=== PATIENT | female | born 1960 | race Caucasian/White ===

== ENCOUNTER 2020-02-26 17:33 | Outpatient (CLI) | payer OTHER, SELFPAY ==
--- NOTE | ~2020-02-26 | XR_ITS ---
EXAMINATION: XR sacrum coccyx min 2V DATE: 02/26/2020 17:55 INDICATION: Sacrococcygeal pain. TECHNIQUE: 3 views of the sacrum and coccyx were obtained. COMPARISON: None. FINDINGS: Bone alignment is normal. No fracture. There is mild lumbar spondylosis. The sacroiliac alise nts are normal. IMPRESSION: 1. No fracture. Reviewed, dictated and finalized at location A. IMPRESSION: 1. No fracture.
== END 2020-02-26 17:34 | disposition home or self-care (01) ==
PROVIDERS: PCP Family Medicine; Visit Provider Nurse Practitioner
DX: M53.3 Sacrococcygeal disorders, not elsewhere classified (principal)
CPT/HCPCS: 72220

== ENCOUNTER 2020-03-17 09:48 | Outpatient (CLI) | payer OTHER, SELFPAY ==
--- NOTE | ~2020-03-17 | CT_ITS ---
EXAMINATION: CT lung screening DATE: 03/17/2020 10:11 INDICATION: Personal history of tobacco dependence, current smoker with 30 pack year history TECHNIQUE: Computed tomography (CT) of the chest was performed without intravenous contrast. The dose -length product (DLP) was 56.31 mGy-cm. Automated exposure control and iterative reconstruction techn ique were employed. COMPARISON: 03/12/2019 FINDINGS: There is moderate emphysema. There is a new 6 mm nodule of the right lung apex on image 16. A previously described 3 mm nodule of the right upper lobe is no longer present. Calcified pulmonary nodules and calcified right hilar lymph nodes are consistent with old granulomatous disease. No path ologically enlarged thoracic lymph nodes are identified. The heart size is normal. The lungs are free of acute opacities. There is no pleural effusion or pneumothorax. There is mild thoracic spondylosis . IMPRESSION: 1. Lung-RADS category 4A: Findings for which additional diagnostic testing and/or tissue sampling is recommended. Low-dose chest CT in three months is recommended. Reviewed, dictated and finalized at location A. IMPRESSION: 1. Lung-RADS category 4A: Findings for which additional diagnostic testing and/ or tissue sampling is recommended. Low-dose chest CT in three months is recomme nded.
== END 2020-03-17 09:49 | disposition home or self-care (01) ==
LOC: ANHIMG 09:52
PROVIDERS: PCP Family Medicine; Visit Provider Internal Medicine Critical Care Medicine
DX: Z12.2 Encounter for screening for malignant neoplasm of respiratory organs (principal); Z87.891 Personal history of nicotine dependence; R91.8 Other nonspecific abnormal finding of lung field
CPT/HCPCS: G0297

== ENCOUNTER 2020-06-12 11:16 | Outpatient (CLI) | payer OTHER, SELFPAY ==
--- NOTE | ~2020-06-12 | CT_ITS ---
EXAMINATION: CT chest wo con DATE: 06/12/2020 12:05 INDICATION: Follow-up pulmonary nodule TECHNIQUE: Computed tomography (CT) of the chest was performed without intravenous contrast. The dose -length product was 56.73 mGy-cm. Automated exposure control and iterative reconstruction technique w ere employed. COMPARISON: CT dated 03/17/2020 and 03/12/2019 FINDINGS: Stable 6 mm right upper lobe nodule compared with prior examination allowing for difference s of technique. There is moderate emphysema. There are calcified right hilar lymph nodes, consistent with chronic granulomatous disease. There are calcified pulmonary nodules, consistent with chronic gr anulomatous disease. There is right lower lobe atelectasis. There is a 2 mm left upper lobe nodule, u nchanged. No thoracic lymphadenopathy. Heart size normal. No significant pleural or pericardial effus ion. The upper abdomen is unremarkable. IMPRESSION: 1. Stable upper lobe nodules, largest in the right upper lobe measuring 6 mm, image 14. Six-month fol low-up low dose CT chest recommended. Reviewed, dictated and finalized at location A. 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 Stable upper lobe nodules, largest in the right upper lobe measuring 6 mm, i mage 14. Six-month follow-up low dose CT chest recommended.
== END 2020-06-12 11:17 | disposition home or self-care (01) ==
PROVIDERS: PCP Family Medicine; Visit Provider Nurse Practitioner Family
DX: R91.8 Other nonspecific abnormal finding of lung field (principal)
CPT/HCPCS: 71250

== ENCOUNTER 2020-07-19 12:16 | Outpatient (CLI) | payer OTHER, SELFPAY ==
--- NOTE | ~2020-07-19 | XR_ITS ---
XR sacrum coccyx min 2V DATE: 07/19/2020 12:36 INDICATION: Tailbone and sacral pain. No injury. TECHNIQUE: AP, angled AP and lateral views COMPARISON: None FINDINGS: There is mild degenerative disc disease and mild retrolisthesis at L4-5. Diffuse osteopenia. No fracture or bone destruction of the sacrum or coccyx is evident. The sacroiliac joints appear norm al. IMPRESSION: Osteopenia Reviewed, dictated and finalized at location A. RAMMER IMPRESSION: Osteopenia
== END 2020-07-19 12:17 | disposition home or self-care (01) ==
LOC: ANHIMG 12:20
PROVIDERS: PCP Family Medicine; Visit Provider Nurse Practitioner
DX: M43.17 Spondylolisthesis, lumbosacral region (principal); M85.88 Other specified disorders of bone density and structure, other site
CPT/HCPCS: 72220

== ENCOUNTER 2020-07-27 10:58 | Outpatient (NON) | payer OTHER, SELFPAY ==
[2020-07-27 22:32] LABS: SARS-CoV-2 RNA PCR Negative
== END 2020-07-27 10:59 ==
LOC: ANHCOVIDDT 10:59
PROVIDERS: PCP Family Medicine; Visit Provider Family Medicine
DX: R68.89 Other general symptoms and signs (principal); Z20.828 Contact with and (suspected) exposure to other viral communicable diseases
CPT/HCPCS: 87635; C9803; U0003

== ENCOUNTER 2020-08-17 12:50 | Outpatient (NON) | payer OTHER, SELFPAY ==
[2020-08-17 23:32] LABS: SARS-CoV-2 RNA PCR Negative
== END 2020-08-17 12:51 ==
PROVIDERS: PCP Family Medicine; Visit Provider Family Medicine
DX: R68.89 Other general symptoms and signs (principal); Z20.822 Contact with and (suspected) exposure to COVID-19
CPT/HCPCS: C9803; U0003

== ENCOUNTER → 2020-09-23 09:48 | Outpatient (CLI) | payer OTHER, SELFPAY ==
[2020-09-24 19:48] LABS: SARS-CoV-2 RNA PCR Negative
== END ==
PROVIDERS: PCP Family Medicine; Visit Provider Nurse Practitioner Family
DX: Z20.822 Contact with and (suspected) exposure to COVID-19 (principal); R68.89 Other general symptoms and signs
CPT/HCPCS: C9803; U0003; U0005

== ENCOUNTER 2020-09-23 12:01 | Outpatient (CLI) | payer OTHER, SELFPAY ==
[2020-09-23 12:37] LABS: Basophils Percent Auto 0.2 % (0.2-1.2); Eosinophils Absolute Auto 0.1 K/mm3 (0-0.3); Eosinophils Percent Auto 0.4 % (0-4.4); Hematocrit 48.3 % (37.0-47.0); Hemoglobin 16.1 g/dL (12.0-15.0); Immature Granulocyte Absolute 0.08 K/mm3 (0.00-0.031); Immature Granulocyte Percent A 0.6 % (0-0.5); Lymphocytes Absolute Auto 1.98 K/mm3 (0.9-3.2); Lymphocytes Percent Auto 15.3 % (18.3-44.2); Mean Corpuscular HGB Conc 33.3 g/dl (32-36); Mean Corpuscular Hemoglobin 32.9 pg (26-34); Mean Corpuscular Volume 98.8 fl (80-100); Mean Platelet Volume 9.1 fl (7.4-10.4); Monocytes Absolute Auto 0.8 K/mm3 (0.1-0.6); Monocytes Percent Auto 5.9 % (2.6-8.5); Neutrophils Absolute Auto 10.1 K/mm3 (1.3-6.7); Neutrophils Percent Auto 77.6 % (45.5-73.1); Platelet Count Result 196 k/mm3 (150-375); Red Blood Count 4.89 M/mm3 (4.2-5.4); Red Cell Distribution Width 12.8 % (11.5-14.5); White Blood Count 12.9 K/mm3 (4.5-10.0)
[2020-09-23 12:43] LABS: Alanine Aminotransferase 52 U/L (4-35); Albumin Level 4.4 g/dL (3.5-5.1); Alkaline Phosphatase 75 U/L (38-126); Anion Gap 5 mmol/L (8-16); Aspartate Amino Transferase 27 U/L (14-36); Bilirubin,Total 0.4 mg/dL (0.2-1.3); Blood Urea Nitrogen 24 mg/dL (7-17); Calcium 9.7 mg/dL (8.4-10.2); Carbon Dioxide 32 mmol/L (22-30); Chloride 104 mmol/L (98-107); Cholesterol 207 mg/dL (0-200); Estimated Glomerular Filt Rate 50; Glucose 114 mg/dL (65-105); HDL Direct 100 mg/dL; Lactate Dehydrogenase 303 U/L (313-618); Potassium 4.2 mmol/L (3.4-5.0); Sodium 141 mmol/L (137-145); Triglycerides 106 mg/dL (<150)
[2020-09-23 12:54] LABS: LDL Cholesterol Direct 91 mg/dL
[2020-09-23 13:14] LABS: Thyroid Stimulating Hormone 0.213 uIU/mL (0.465-4.680)
[2020-09-23 13:15] LABS: Free T4 Free Thyroxine 1.08 ng/mL (0.78-2.19); Vitamin D 25 Hydroxy 47.5 ng/mL
[2020-09-23 13:49] LABS: Folic Acid 6.4 ng/mL (2.76->20)
[2020-09-26 07:48] LABS: Triiodothyronine T3 Free 2.3 pg/mL (2.3-4.2)
== END 2020-09-23 12:02 | disposition home or self-care (01) ==
LOC: ANHLAB 12:02
PROVIDERS: PCP Family Medicine; Visit Provider Nurse Practitioner
DX: R53.83 Other fatigue (principal); E55.9 Vitamin D deficiency, unspecified; Z13.29 Encounter for screening for other suspected endocrine disorder
CPT/HCPCS: 36415; 80053; 80061; 82306; 82607; 82746; 83615; 84439; 84443; 84481; 85025; C9803; U0003; U0005

== ENCOUNTER 2020-10-06 14:06 | Outpatient (CLI) | payer OTHER, SELFPAY ==
[2020-10-06 14:52] LABS: Basophils Percent Auto 0.3 % (0.2-1.2); Eosinophils Absolute Auto 0.1 K/mm3 (0-0.3); Eosinophils Percent Auto 0.8 % (0-4.4); Hematocrit 45.9 % (37.0-47.0); Hemoglobin 15.3 g/dL (12.0-15.0); Immature Granulocyte Absolute 0.02 K/mm3 (0.00-0.031); Immature Granulocyte Percent A 0.3 % (0-0.5); Lymphocytes Absolute Auto 2.37 K/mm3 (0.9-3.2); Lymphocytes Percent Auto 30.1 % (18.3-44.2); Mean Corpuscular HGB Conc 33.3 g/dl (32-36); Mean Corpuscular Hemoglobin 32.9 pg (26-34); Mean Corpuscular Volume 98.7 fl (80-100); Mean Platelet Volume 9.7 fl (7.4-10.4); Monocytes Absolute Auto 0.6 K/mm3 (0.1-0.6); Monocytes Percent Auto 7.1 % (2.6-8.5); Neutrophils Absolute Auto 4.8 K/mm3 (1.3-6.7); Neutrophils Percent Auto 61.4 % (45.5-73.1); Platelet Count Result 145 k/mm3 (150-375); Red Blood Count 4.65 M/mm3 (4.2-5.4); Red Cell Distribution Width 12.8 % (11.5-14.5); White Blood Count 7.9 K/mm3 (4.5-10.0)
[2020-10-06 15:56] LABS: Hepatitis B Surface Antigen Negative (Negative)
[2020-10-06 16:02] LABS: HAV RESULT Negative (Negative); Hepatitis B Core IgM Result Negative (Negative)
[2020-10-06 16:14] LABS: Hepatitis C Virus Antibody Negative (Negative)
== END 2020-10-06 14:07 | disposition home or self-care (01) ==
PROVIDERS: PCP Family Medicine; Visit Provider Nurse Practitioner
DX: R94.5 Abnormal results of liver function studies (principal); R53.83 Other fatigue; D72.829 Elevated white blood cell count, unspecified
CPT/HCPCS: 36415; 80074; 85025

== ENCOUNTER 2020-12-05 11:21 | Outpatient (CLI) | payer OTHER, SELFPAY ==
[2020-12-05 12:03] LABS: Alanine Aminotransferase 14 U/L (4-35); Albumin Level 4.6 g/dL (3.5-5.1); Alkaline Phosphatase 63 U/L (38-126); Anion Gap 4 mmol/L (8-16); Aspartate Amino Transferase 21 U/L (14-36); Bilirubin,Total 0.5 mg/dL (0.2-1.3); Blood Urea Nitrogen 18 mg/dL (7-17); Calcium 9.4 mg/dL (8.4-10.2); Carbon Dioxide 33 mmol/L (22-30); Chloride 105 mmol/L (98-107); Estimated Glomerular Filt Rate > 60; Glucose 92 mg/dL (65-105); Potassium 4.3 mmol/L (3.4-5.0); Sodium 142 mmol/L (137-145)
== END 2020-12-05 11:22 | disposition home or self-care (01) ==
LOC: ANHLAB 11:22
PROVIDERS: PCP Family Medicine; Visit Provider Nurse Practitioner
DX: R94.5 Abnormal results of liver function studies (principal)
CPT/HCPCS: 36415; 80053

== ENCOUNTER 2020-12-12 08:05 | Outpatient (CLI) | payer OTHER, SELFPAY ==
[2020-12-12 08:30] VITALS: PULSE 65; O2SAT 93
[2020-12-12 08:32] VITALS: PULSE 87; O2SAT 90
[2020-12-12 08:34] VITALS: PULSE 92; O2SAT 89
[2020-12-12 08:35] VITALS: PULSE 97; O2SAT 87
[2020-12-12 08:37] VITALS: PULSE 92; O2SAT 92
[2020-12-12 08:45] VITALS: PULSE 70; O2SAT 92
--- NOTE | 2020-12-12 09:14 | HOMEO2EVAL ---
Evaluation was performed at [facility] Home Oxygen Evaluation RC: Home Oxygen (O2) Evaluation Start: 12/12/20 09:09 Freq: Status: Active Protocol: RPE Activity Type Activity Date Activity User E-Sign Co-Sign Detail Recorded Client Recorded Date Recorded By Document 12/12/20 08:30 DANIEL [email or web address] 12/12/20 09:14 DANIEL Document 12/12/20 08:32 DANILE [email or web address] 12/12/20 09:14 DANIEL Document 12/12/20 08:34 DANIEL [email or web address] 12/12/20 09:14 DANIEL Document 12/12/20 08:35 DANIEL [email or web address] 12/12/20 09:14 DANIEL Document 12/12/20 08:37 DANIEL [email or web address] 12/12/20 09:14 DANIEL Document 12/12/20 08:45 DANIEL [email or web address] 12/12/20 09:14 DANIEL 12/12/20 12/12/20 12/12/20 08:30 08:32 08:34 Home O2 Evaluation Test Phase Resting Exercise Exercise Oxygen Delivery Room Air Room Air Room Air Oxygen Flow Rate (L/min) Pulse Oximetry (90-100 %) 93 90 89 L Pulse Rate (60-100 beats/min) 65 87 92 Ambulation Distance (feet) Home Oxygen Evaluation Comments Treatment Charges O2 Evaluation - Outpatient 12/12/20 12/12/20 12/12/20 08:35 08:37 08:45 Home O2 Evaluation Test Phase Exercise Exercise Resting Oxygen Delivery Room Air Nasal Cannula Room Air Oxygen Flow Rate (L/min) 1 Pulse Oximetry (90-100 %) 87 L 92 92 Pulse Rate (60-100 beats/min) 97 92 70 Ambulation Distance (feet) 650 Home Oxygen Evaluation Comments Pt requires 1 liter with exertion/ activity Treatment Charges
--- NOTE | 2020-12-12 09:15 | PCRCNOTE ---
Mita faxed to office, pt has O2 at home, but only for night. Will need portable O2 supplies.
== END 2020-12-12 08:06 | disposition home or self-care (01) ==
PROVIDERS: PCP Family Medicine; Visit Provider Nurse Practitioner Family
DX: R06.02 Shortness of breath (principal)
CPT/HCPCS: 94618

== ENCOUNTER 2020-12-20 08:06 | Outpatient (CLI) | payer OTHER, SELFPAY ==
--- NOTE | ~2020-12-20 | CT_ITS ---
EXAMINATION:CT diagnostic chest wo con DATE: 12/20/2020 08:24 INDICATION: Solitary pulmonary nodule. TECHNIQUE: Computed tomography (CT) of the chest was performed without intravenous contrast. Automate d exposure control and iterative reconstruction technique were employed. The dose-length product (DLP ) was 57.59 mGy-cm. COMPARISON: Chest CT 06/12/2020, 03/17/2020, 03/12/2019 FINDINGS: There is moderate emphysema. A calcified right lung nodule and calcified right hilar lymph nodes are consistent with old granulomatous disease. There is mild atelectasis in right lower lobe. T here is a 5 mm nodule in right upper lobe, stable from 03/17/2020. There is a 2 mm nodule in left upper lobe. No pleural effusion. The heart size is normal. No pericardial effusion. There is mild thoracic spondylosis. IMPRESSION: 1. Lung-RADS category 2: Benign appearance or behavior. Continue annual screening with noncontrast lo w-dose chest CT in 12 months. Reviewed, dictated and finalized at location B. IMPRESSION: 1. Lung-RADS category 2: Benign appearance or behavior. Continue annual screeni ng with noncontrast low-dose chest CT in 12 months.
== END 2020-12-20 08:07 | disposition home or self-care (01) ==
PROVIDERS: PCP Family Medicine; Visit Provider Nurse Practitioner Family
DX: R91.1 Solitary pulmonary nodule (principal)
CPT/HCPCS: 71250

== ENCOUNTER 2021-01-23 15:45 | Outpatient (CLI) | payer OTHER, SELFPAY ==
[2021-01-23 16:12] LABS: Uric Acid 4.2 mg/dL (2.5-7.5)
== END 2021-01-23 15:46 | disposition home or self-care (01) ==
PROVIDERS: PCP Family Medicine; Visit Provider Nurse Practitioner Family
DX: M10.9 Gout, unspecified (principal)
CPT/HCPCS: 36415; 84550

== ENCOUNTER 2021-01-25 15:47 | Outpatient (CLI) | payer OTHER, SELFPAY ==
--- NOTE | ~2021-01-25 | XR_ITS ---
XR foot RT min 3V DATE: 01/25/2021 16:16 INDICATION: Growth on first digit medially and anteriorly at first metatarsophalangeal joint TECHNIQUE: 4 views of right foot COMPARISON: None FINDINGS: There is severe hypertrophic osteoarthritic change at the first metatarsophalangeal joint, including severe joint space narrowing and very prominent spurring.. Prominent spurring accounts for posterior projections at the first metatarsophalangeal area. No fracture, dislocation, periosteal reaction or bone destruction. IMPRESSION: Severe hypertrophic osteoarthritic change at the first metatarsophalangeal joint with stephanie y prominent dorsally projecting spurring accounting for the clinical complaint Reviewed, dictated and finalized at location A. IMPRESSION: Severe hypertrophic osteoarthritic change at the first metatarsopha langeal joint with very prominent dorsally projecting spurring accounting for t he clinical complaint
== END 2021-01-25 15:48 | disposition home or self-care (01) ==
PROVIDERS: PCP Family Medicine; Visit Provider Family Medicine
DX: M19.071 Primary osteoarthritis, right ankle and foot (principal)
CPT/HCPCS: 73630

== ENCOUNTER 2021-02-08 10:10 | Outpatient (CLI) | payer OTHER, SELFPAY ==
--- NOTE | ~2021-02-08 | XR_ITS ---
EXAMINATION: XR chest 2V EXAM DATE: 02/08/2021 10:32 INDICATION: Shortness of breath. Preoperative testing. TECHNIQUE: Frontal and lateral projections of the chest obtained and reviewed. Comparison is made to prior examination from 01/10/2018. FINDINGS: Mild hyperinflation. Right midlung zone granuloma. The lungs are otherwise clear. No pneum othorax or pleural effusion. Cardiomediastinal silhouette is normal. There are mild bony degenerative changes. IMPRESSION: Mild hyperinflation. Reviewed, dictated and finalized at location A. IMPRESSION: Mild hyperinflation.
--- NOTE | 2021-02-08 10:49 | ECG_ITS ---
Measurements Intervals [place] Rate: 53 P: RI: 0 QRS: 82 QRSD: 129 T: 63 QT: 466 QTc: 440 Interpretive Statements ECTOPIC ATRIAL BRADYCARDIA RIGHT BUNDLE BRANCH BLOCK ABNORMAL ECG Electronically Signed On 02-08-2021 11:02:07 CDT by Alfie Jimenez D.O.
[2021-02-08 11:00] LABS: Hematocrit 48.5 % (37.0-47.0); Mean Corpuscular Hemoglobin 32.8 pg (26-34); Mean Corpuscular Volume 99.4 fl (80-100); Mean Platelet Volume 9.3 fl (7.4-10.4); Platelet Count Result 171 k/mm3 (150-375); Red Blood Count 4.88 M/mm3 (4.2-5.4); Red Cell Distribution Width 12.4 % (11.5-14.5); White Blood Count 6.9 K/mm3 (4.5-10.0)
[2021-02-08 11:10] LABS: INR 0.9; Prothrombin Time 12.4 Seconds (11.1-14.7)
[2021-02-08 11:11] LABS: Partial Thromboplastin Time 31.1 SECONDS (22.3-36.8)
[2021-02-08 11:14] LABS: Alanine Aminotransferase 14 U/L (4-35); Albumin Level 4.8 g/dL (3.5-5.1); Alkaline Phosphatase 64 U/L (38-126); Anion Gap 9 mmol/L (8-16); Aspartate Amino Transferase 23 U/L (14-36); Bilirubin,Total 0.3 mg/dL (0.2-1.3); Blood Urea Nitrogen 14 mg/dL (7-17); Calcium 9.6 mg/dL (8.4-10.2); Carbon Dioxide 28 mmol/L (22-30); Chloride 106 mmol/L (98-107); Estimated Glomerular Filt Rate > 60; Glucose 90 mg/dL (65-105); Potassium 3.8 mmol/L (3.4-5.0); Sodium 143 mmol/L (137-145)
== END 2021-02-08 10:11 | disposition home or self-care (01) ==
LOC: ANHIMG 10:15
PROVIDERS: PCP Family Medicine; Visit Provider Nurse Practitioner
DX: Z01.818 Encounter for other preprocedural examination (principal); M21.611 Bunion of right foot; R00.1 Bradycardia, unspecified; I45.10 Unspecified right bundle-branch block
CPT/HCPCS: 36415; 71046; 80053; 85027; 85610; 85730; 93005

== ENCOUNTER 2021-07-20 14:48 | Outpatient (CLI) | payer OTHER, SELFPAY ==
--- NOTE | ~2021-07-20 | XR_ITS ---
EXAMINATION: XR chest 2V DATE: 07/20/2021 15:11 INDICATION: Shortness of breath, cough TECHNIQUE: PA and lateral views of the chest are obtained. COMPARISON: 02/08/2021 FINDINGS: The lungs are free of acute opacities. Calcified pulmonary nodules are consistent with old granulomatous disease. There is no pleural effusion or pneumothorax. The cardiomediastinal silhouette is normal. There is moderate thoracic spondylosis. IMPRESSION: 1. No acute cardiopulmonary abnormality. Reviewed, dictated and finalized at location A. 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
== END 2021-07-20 14:49 | disposition home or self-care (01) ==
LOC: ANHIMG 14:51
PROVIDERS: PCP Family Medicine; Visit Provider Nurse Practitioner Family
DX: R05.9 Cough, unspecified (principal); M47.814 Spondylosis without myelopathy or radiculopathy, thoracic region; R06.02 Shortness of breath; R07.81 Pleurodynia
CPT/HCPCS: 71046

== ENCOUNTER 2021-10-10 12:21 | Outpatient (CLI) | payer OTHER, SELFPAY ==
[2021-10-10 13:05] LABS: Alanine Aminotransferase 15 U/L (4-35); Albumin Level 4.3 g/dL (3.5-5.1); Alkaline Phosphatase 60 U/L (38-126); Anion Gap 4 mmol/L (8-16); Aspartate Amino Transferase 23 U/L (14-36); Bilirubin,Total 0.6 mg/dL (0.2-1.3); Blood Urea Nitrogen 17 mg/dL (7-17); Carbon Dioxide 29 mmol/L (22-30); Chloride 106 mmol/L (98-107); Cholesterol 210 mg/dL (0-200); Creatine Kinase 60 U/L (30-135); Estimated Glomerular Filt Rate > 60; Glucose 90 mg/dL (65-110); HDL Direct 72 mg/dL; Potassium 4.3 mmol/L (3.4-5.0); Sodium 139 mmol/L (137-145); Triglycerides 75 mg/dL (<150)
[2021-10-10 13:17] LABS: LDL Cholesterol Direct 101 mg/dL
[2021-10-10 13:36] LABS: Thyroid Stimulating Hormone 0.697 uIU/mL (0.465-4.680)
[2021-10-10 13:47] LABS: Free T4 Free Thyroxine 1.12 ng/mL (0.78-2.19); Vitamin D 25 Hydroxy 33.7 ng/mL
[2021-10-10 14:13] LABS: Folic Acid 6.6 ng/mL (2.76->20)
[2021-10-13 05:05] LABS: Thyroid Peroxidase Antibodies 20 IU/mL (<9)
== END 2021-10-10 12:22 | disposition home or self-care (01) ==
PROVIDERS: PCP Family Medicine; Referring Provider Specialist; Visit Provider Internal Medicine Endocrinology, Diabetes & Metabolism
DX: E78.2 Mixed hyperlipidemia (principal); E06.3 Autoimmune thyroiditis
CPT/HCPCS: 36415; 80053; 80061; 82306; 82550; 82607; 82746; 84439; 84443; 84481; 86376

== ENCOUNTER 2021-11-07 15:54 | Outpatient (CLI) | payer OTHER, SELFPAY ==
--- NOTE | ~2021-11-07 | MM_ITS ---
EXAMINATION: MM screening [facility] BI w samantha HISTORY: Screening mammogram TECHNIQUE: Craniocaudal and mediolateral oblique 3-D tomosynthesis images were obtained and synthetic 2-D images were generated. CAD analysis was submitted and interpreted. COMPARISON: 08/17/2019, 01/13/2018, 10/11/2016 BREAST PARENCHYMAL COMPOSITION: There are scattered areas of fibroglandular density. FINDINGS: There is no suspicious mass, calcification, or architectural distortion to suggest malignan cy in either breast. There has been no suspicious interval change. IMPRESSION: 1. No mammographic evidence of malignancy. 2. Recommend routine screening mammography in one year. BI-RADS Category 1: Negative Reviewed, dictated and finalized at location A.
== END 2021-11-07 15:55 | disposition home or self-care (01) ==
LOC: ANHIMG 16:00
PROVIDERS: PCP Family Medicine; Visit Provider Family Medicine
DX: Z12.31 Encounter for screening mammogram for malignant neoplasm of breast (principal)
CPT/HCPCS: 77063; 77067

== ENCOUNTER 2022-01-06 10:10 | Outpatient (CLI) | payer OTHER, SELFPAY ==
--- NOTE | ~2022-01-06 | CT_ITS ---
EXAMINATION: CT lung screening DATE: 01/06/2022 10:43 INDICATION: Smoker. COPD. Emphysema. TECHNIQUE: Computed tomography (CT) of the chest was performed without intravenous contrast. The dose -length product was 55.03 mGy-cm. Automated exposure control and iterative reconstruction technique w ere employed. COMPARISON: CT dated 12/20/2020 FINDINGS: Heart size normal. No significant pleural or pericardial effusion. No thoracic lymphadenopa thy. Upper abdomen is unremarkable. There is atherosclerosis of the aorta and coronary arteries. Ther e are scattered calcified granulomas. Stable 4 mm right upper lobe nodule. There is a new 4 mm left u pper lobe nodule, image 16. There is emphysema. There is a new 5 mm left upper lobe nodule, image 26. There is stable right lower lobe atelectasis/scarring. No pneumothorax. No endobronchial lesions. IMPRESSION: 1. Lung-RADS category 3: Probably benign. Further evaluation is recommended with noncontrast low-dose chest CT in 6 months. Reviewed, dictated and finalized at location A. IMPRESSION: 1. Lung-RADS category 3: Probably benign. Further evaluation is recommended wit h noncontrast low-dose chest CT in 6 months.
== END 2022-01-06 10:11 | disposition home or self-care (01) ==
PROVIDERS: PCP Family Medicine; Visit Provider Nurse Practitioner Family
DX: Z12.2 Encounter for screening for malignant neoplasm of respiratory organs (principal); Z87.891 Personal history of nicotine dependence
CPT/HCPCS: 71271

== ENCOUNTER 2022-04-20 12:41 | Outpatient (CLI) | payer OTHER, SELFPAY ==
--- NOTE | ~2022-04-20 | XR_ITS ---
EXAMINATION: XR hip RT min 2V DATE: 04/20/2022 13:06 INDICATION: Right hip pain TECHNIQUE: Two views of right hip were obtained. COMPARISON: None. FINDINGS: Bone alignment is normal. There is no fracture. There is mild osteoarthritis of the right h ip. The soft tissues are unremarkable. IMPRESSION: 1. Mild osteoarthritis of the hip. Reviewed, dictated and finalized at location B.
--- NOTE | ~2022-04-20 | XR_ITS ---
EXAMINATION: XR shoulder RT min 2V INDICATION: Right shoulder pain TECHNIQUE: Four views of the right shoulder are submitted. COMPARISON: None FINDINGS: Normal alignment. No fracture. There is mild osteoarthritis of the glenohumeral joint and m oderate osteoarthritis of the acromioclavicular joint. Soft tissues are unremarkable. IMPRESSION: 1. No acute osseous abnormality. Reviewed, dictated and finalized at location B.
== END 2022-04-20 12:42 | disposition home or self-care (01) ==
PROVIDERS: PCP Family Medicine; Visit Provider Nurse Practitioner Adult Health
DX: M16.11 Unilateral primary osteoarthritis, right hip (principal); M25.511 Pain in right shoulder
CPT/HCPCS: 73030; 73502

== ENCOUNTER 2022-05-27 15:17 | Inpatient (IN) | payer OTHER, SELFPAY ==
[2022-05-27] VITALS (33 sets, daily range): BP systolic 106–140; BP diastolic 64–89; PULSE 86–114; RESP 16–25; TEMP 36.7–37.2; O2SAT 92–99; BMI 20.4
--- NOTE | ~2022-05-27 | XR_ITS ---
EXAMINATION: XR chest 1V portable DATE: 05/31/2022 15:33 INDICATION: Chest pain. Shortness of breath. TECHNIQUE: A single frontal view of the chest was obtained. COMPARISON: Chest single view 05/27/2022, chest CT 01/06/2022 FINDINGS: A calcified right lung nodule and calcified right hilar lymph nodes are consistent with old granulomatous disease. There are mild airspace opacities in right lower lung zone. No pleural effusi on or pneumothorax. The heart size is normal. IMPRESSION: 1. Stable mild airspace opacities in right lower lung zone, consistent with atelectasis/scarring vers us pneumonia. Reviewed, dictated and finalized at location A. IMPRESSION: 1. Stable mild airspace opacities in right lower lung zone, consistent with ate lectasis/scarring versus pneumonia.
--- NOTE | ~2022-05-27 | XR_ITS ---
EXAMINATION: XR chest 1V portable Exam Date/Time: 05/27/2022 15:46 CDT HISTORY: dyspnea. congestion the last 2 days. hx COPD Comparison: None available. RESULT: Lines, tubes, and devices: None. Lungs and pleura: Ill-defined patchy opacities in the right upper and right lower lung. Hyperinflati on. Cardiomediastinal silhouette: Stable. Other: No acute osseous or upper abdominal finding. IMPRESSION: Right lung opacities may reflect edema or infection, overlying chronic emphysematous change. Reviewed, dictated and finalized at location K. IMPRESSION: Right lung opacities may reflect edema or infection, overlying chronic emphysem atous change.
--- NOTE | 2022-05-27 15:24 | ECG_ITS ---
Measurements Intervals [place] Rate: 87 P: 8 MA: 150 QRS: 87 QRSD: 120 T: 69 QT: 361 QTc: 437 Interpretive Statements SINUS RHYTHM BASELINE ARTIFACT RIGHT BUNDLE BRANCH BLOCK ABNORMAL ECG COMPARED TO ECG 02/08/2021 10:58:31 HEART RATE HAS INCREASED AND ECTOPIC ATRIAL RHYTHM NO LONGER APPRECIATED Electronically Signed On 05-27-2022 16:05:10 CDT by William Andino M.D.
[2022-05-27 15:37] LABS: Alveolar/Arterial O2 Gradient 80.7 mmHg; Base Excess ABG -2.1 mEq/l (+/-2.0); Carboxyhemoglobin 1.5 % THb (0-2.0); Fractional Inspired Oxygen 28 %; HCO3 ABG 21.9 mEq/l (22.0-26.0); Methemoglobin ABG 0.2 %THb (0-1.5); Oxygen Saturation ABG 95.6 % (95.0-100.0); Oxyhemoglobin 93.4 % THb (90.0-100.0); PCO2 ABG 35.3 mmHg (35.0-45.0); PO2 ABG 77.3 mmHg (80.0-100.0); PO2 FiO2 Ratio Arterial Blood 2.76 %; Reduced Hemoglobin 4.9 %THb (0-5.0); Total Hemoglobin 13.7 g/dL (12.0-18.0)
[2022-05-27 15:38] LABS: Device NASAL CANNULA; Modified Allen's Test Pass; Site Drawn LEFT RADIAL
[2022-05-27 15:50] LABS: Basophils Percent Auto 0.3 % (0.2-1.2); Eosinophils Percent Auto 0.1 % (0-4.4); Hematocrit 42.3 % (37.0-47.0); Hemoglobin 13.5 g/dL (12.0-15.0); Immature Granulocyte Absolute 0.02 K/mm3 (0.00-0.031); Immature Granulocyte Percent A 0.2 % (0-0.5); Immature Platelet Fraction Pct 2.8 % (0.9-11.2); Lymphocytes Absolute Auto 1.41 K/mm3 (0.9-3.2); Lymphocytes Percent Auto 15.6 % (18.3-44.2); Mean Corpuscular HGB Conc 31.9 g/dl (32-36); Mean Corpuscular Hemoglobin 32.2 pg (26-34); Mean Platelet Volume 9.5 fl (7.4-10.4); Monocytes Absolute Auto 0.8 K/mm3 (0.1-0.6); Monocytes Percent Auto 8.7 % (2.6-8.5); Neutrophils Absolute Auto 6.8 K/mm3 (1.3-6.7); Neutrophils Percent Auto 75.1 % (45.5-73.1); Platelet Count Result 129 k/mm3 (150-375); Red Blood Count 4.19 M/mm3 (4.2-5.4); Red Cell Distribution Width 13.6 % (11.5-14.5)
[2022-05-27 15:59] LABS: Alanine Aminotransferase 23 U/L (6-35); Albumin Level 4.7 g/dL (3.5-5.1); Alkaline Phosphatase 67 U/L (38-126); Anion Gap 11 mmol/L (8-16); Aspartate Amino Transferase 29 U/L (14-36); Bilirubin,Total 1.3 mg/dL (0.2-1.3); Blood Urea Nitrogen 13 mg/dL (7-17); Carbon Dioxide 25 mmol/L (22-30); Chloride 100 mmol/L (98-107); Estimated CRCL calculation 72 ml/min; Estimated Glomerular Filt Rate > 60; Glucose 108 mg/dL (65-110); Potassium 3.9 mmol/L (3.4-5.0); Sodium 136 mmol/L (137-145)
[2022-05-27] MEDS: ALBUTEROL SULFATE NEB 2.5 MG/3 ML INH 5 MG INHALATION ×2 (16:07→21:00)
[2022-05-27] MEDS: methylPREDNISolone SOD SUCC 125 MG VIAL IV PUSH (16:11)
[2022-05-27] MEDS: MORPHINE SULFATE (*CRX) 4 MG/ML INJ IV PUSH (16:11)
--- NOTE | 2022-05-27 16:22 | ED.SOB ---
HPI - SOB/Dyspnea General Chief Complaint: Shortness of Breath/Dyspnea Stated Complaint: copd, sob Time Seen by Provider: 05/27/22 15:37 History of Present Illness HPI Narrative: 61-year-old female with history of COPD on 2 L of oxygen by nasal cannula presenting the emergency department for evaluation of worsening shortness of breath. Patient states that over the last few weeks she has had worsening shortness of breath but particular the last 2 days. Patient does report associated chest pain with this. Patient states the chest pain is from her chest and into her back and is with exertion. Patient does report she has also been having increased phlegm production. Patient reports he has had multiple stress test and Angiocath since 2008. Patient denies any prior history of [place] and has no cardiac stents. Related Data Home Medications Medication Instructions Recorded Confirmed albuterol sulfate 90 mcg/actuation 2 puff inhalation Q4-6H PRN 05/27/22 05/27/22 aerosol inhaler Shortness Of Breath cyanocobalamin (vitamin B-12) See Rx Instructions .Route .COMPLEX 05/27/22 05/27/22 1,000 mcg/mL injection solution (Dodex) ergocalciferol (vitamin D2) 1,250 See Rx Instructions .Route .COMPLEX 05/27/22 05/27/22 mcg (50,000 unit) capsule tiotropium bromide 18 mcg capsule 1 cap inhalation DAILY 05/27/22 05/27/22 with inhalation device (Spiriva with HandiHaler) Allergies Allergy/AdvReac Type Severity Reaction Status Date / Time No Known Allergies Allergy Verified 05/27/22 22:16 Review of Systems Review of Systems: CONSTITUTIONAL: Denies fever, chills, or sweats. EYES: Denies visual changes, redness, or discharge. ENT: Denies rhinorrhea, congestion, sore throat, or otalgia. CARDIOVASCULAR: See HPI RESPIRATORY: See HPI GASTROINTESTINAL: Denies abdominal pain, nausea, vomiting, or diarrhea. GENITOURINARY: Denies dysuria or hematuria. SKIN: Denies rash or itching. MUSCULOSKELETAL: Denies back pain, joint pain, or myalgia. NEUROLOGIC: Denies headache, numbness, or weakness. [facility] Past Medical History Medical History (Updated 05/28/22 @ 20:23 by Kevin Nieves MD) Acid reflux Anxiety Chronic obstructive pulmonary disease Chronic respiratory failure with hypoxia, on home oxygen therapy Depression Surgical History Surgical History (Updated 05/27/22 @ 22:02 by Rupali Longoria PA-C) History of bilateral cataract extraction History of bunionectomy History of cardiac catheterization History of section History of colonoscopy with polypectomy History of esophageal dilatation Family History Family History Mother Family history of chronic obstructive pulmonary disease Sibling Family history of lung cancer Family history of cardiovascular disease, Onset Age: 58 Family history of chronic obstructive pulmonary disease Father Family history of lung cancer Other Asthma Diabetes mellitus Family history of coronary artery disease Family history of elevated blood lipids Hypertension Social History Social History (Updated 05/27/22 @ 22:08 by Rupali Longoria PA-C) Social History: Smoked 2 packs a day for 38 years, now 0.5 packs a day. No alcohol abuse. Uses marijuana gummies at night for sleep. Surrogate medical decision maker: Jonathan Peña, significant other. Code status: Full code. Spiritual care concerns: No Exam Narrative: APPEARANCE: Well appearing, no pain, no distress, well-nourished. HEAD: normocephalic, atraumatic. EYES: PERRLA/EOMI, conjunctivae clear. NOSE: Normal no drainage THROAT: Pharynx clear, no exudate. NECK: Supple. No adenopathy, no masses. RESPIRATORY: Airway patent, respirations nonlabored. Increased work of breathing. CARDIOVASCULAR: Regular rate and rhythm without murmurs rubs or gallops. ABDOMINAL: Soft, nontender, nondistended, normal bowel sounds MUSCULOSKELETAL: Moves all extremities. St
[2022-05-27 16:25] LABS: Troponin I < 0.012 ng/mL (0.000-0.034)
[2022-05-27 16:30] LABS: SARS-CoV-2 RNA PCR Negative
--- NOTE | 2022-05-27 18:00 | PM.IMHP ---
H&P: HPI History of Present Illness Date/Time: 05/27/22 18:00 Chief Complaint: Shortness of breath. Narrative: This is a pleasant 61-year-old female smoker with with oxygen dependant COPD who presented to the ED for evaluation of shortness of breath. She has chronic dyspnea on exertion but is typically able to do all activities of daily living without significant issue. The last week or so she has had increasing dyspnea on lesser and lesser exertion though it has gotten much worse over the past 2 days. She also reports a cough productive of oliva/green phlegm, chills, sweats, and chest tightness due to feeling so she cannot fully taken in a deep breath. She has been using her inhalers though they have not provided her with any longstanding relief. She has been afebrile since arrival today and vital signs are stable. Labs were essentially unremarkable. Chest x-ray showed right lung opacities which likely indicate infection and she is being admitted in this setting for treatment of pneumonia and COPD exacerbation. She has not had a documented fever and denies headache, sinus congestion, sore throat, lightheadedness, dizziness, and diarrhea. She and her significant other were in [place] this weekend returned home over the weekend though she does not think she had any exposure to sick contacts. Review of Systems Review of Systems: Twelve systems were reviewed. No syncope or presyncope. No headache, sinus congestion, or sore throat. She has had some mild pleuritic pain in the right mid to lower back where she was found to have pneumonia on x-ray. Appetite has been okay. No nausea or vomiting. She has been constipated the last several days. Except as documented, all other systems were reviewed and are negative. [facility] Past Medical History Medical History (Updated 05/27/22 @ 22:06 by Rupali Longoria PA-C) Acid reflux Anxiety Chronic obstructive pulmonary disease Chronic respiratory failure with hypoxia, on home oxygen therapy Depression Surgical History Surgical History (Updated 05/27/22 @ 22:02 by Rupali Longoria PA-C) History of bilateral cataract extraction History of bunionectomy History of cardiac catheterization History of section History of colonoscopy with polypectomy History of esophageal dilatation Family History Family History Mother Family history of chronic obstructive pulmonary disease Sibling Family history of lung cancer Family history of cardiovascular disease, Onset Age: 58 Family history of chronic obstructive pulmonary disease Father Family history of lung cancer Other Asthma Diabetes mellitus Family history of coronary artery disease Family history of elevated blood lipids Hypertension Social History Social History (Updated 05/27/22 @ 22:08 by Rupali Longoria PA-C) Social History: Smoked 2 packs a day for 38 years, now 0.5 packs a day. No alcohol abuse. Uses marijuana gummies at night for sleep. Surrogate medical decision maker: Jonathan Peña, significant other. Code status: Full code. Spiritual care concerns: No Meds Home Medications and Allergies Home Medications Medication Instructions Recorded Confirmed Type mometasone-formoterol HFA 100 2 puff inhalation Q12H #13 grams 12/07/21 05/27/22 Rx mcg-5 mcg/actuation aerosol inhaler (Dulera) albuterol sulfate 90 mcg/actuation 2 puff inhalation Q4-6H PRN 05/27/22 05/27/22 History aerosol inhaler Shortness Of Breath cyanocobalamin (vitamin B-12) See Rx Instructions .Route .COMPLEX 05/27/22 05/27/22 History 1,000 mcg/mL injection solution (Dodex) ergocalciferol (vitamin D2) 1,250 See Rx Instructions .Route .COMPLEX 05/27/22 05/27/22 History mcg (50,000 unit) capsule tiotropium bromide 18 mcg capsule 1 cap inhalation DAILY 05/27/22 05/27/22 History with inhalation device (Spiriva with HandiHaler) Allergies Allergy/A
--- NOTE | 2022-05-27 18:44 | PC.NURSE ---
Report received by VICKEY Schafer with the ED at 1843.
--- NOTE | 2022-05-27 19:10 | ADMGEN ---
This patient, Liset Kunz, was admitted to IMU Room 214-01 at 1859. Patient/family oriented to hospital policies and general routines including ID bracelet, bed and alarms, visiting hours, pain management, procedures, bathroom and other care routines, personal items, smoking policy, room service/diet, and visiting hours. Information on how to activate the Rapid Response Team has been discussed. Patient/Family are encouraged to report perceived risks to care and to ask questions if they do not understand what they are told or what they should do.
[2022-05-27 20:43] LABS: Troponin I < 0.012 ng/mL (0.000-0.034)
[2022-05-27] MEDS: IPRATROPIUM BR 0.02% INH SOLN 0.5 MG/2.5 ML VIAL INHALATION (21:00)
[2022-05-27] MEDS: methylPREDNISolone SOD SUCC 40 MG VIAL IV PUSH (22:28)
[2022-05-27] MEDS: ACETAMINOPHEN 325 MG TABLET 650 MG PO (22:28)
[2022-05-27] MEDS: diazePAM (*CRX) 2.5 MG TABLET PO (22:36)
[2022-05-28] VITALS (15 sets, daily range): BP systolic 105–111; BP diastolic 56–66; PULSE 73–108; RESP 15–22; TEMP 36.5–36.7; O2SAT 94–99; BMI 20.4
[2022-05-28] MEDS: guaiFENesin/DEXTROMETHORPHAN 10 ML UDC 5 ML PO ×2 (00:14→10:11)
[2022-05-28] MEDS: IPRATROPIUM BR 0.02% INH SOLN 0.5 MG/2.5 ML VIAL INHALATION ×2 (02:25→08:53)
[2022-05-28] MEDS: methylPREDNISolone SOD SUCC 40 MG VIAL IV PUSH (04:49)
[2022-05-28 06:04] LABS: Influenza A QL RT-PCR Negative (Negative); Influenza B QL RT-PCR Negative (Negative)
--- NOTE | 2022-05-28 07:44 | PM.IMPN ---
Progress Note: A&P Assessment and Plan (1) COPD exacerbation: Code(s): J44.1 - Chronic obstructive pulmonary disease with (acute) exacerbation Status: Acute Assessment and Plan: Will start Trelegy, discontinue steroids and nebulizers per patient request, monitor off these, will consult pulmonology (2) Chronic respiratory failure with hypoxia, on home oxygen therapy: Code(s): J96.11 - Chronic respiratory failure with hypoxia; Z99.81 - Dependence on supplemental oxygen Status: Acute Assessment and Plan: Stable on 2 L which is her home dose (3) Pneumonia: Code(s): J18.9 - Pneumonia, unspecified organism Status: Acute Assessment and Plan: Day 2 of azithromycin and ceftriaxone, started May 27, 2022 (4) Anxiety: Code(s): F41.9 - Anxiety disorder, unspecified Status: Acute Assessment and Plan: Valium 2.5 mg orally twice daily as needed Patient uses a THC/CBD gummy several times throughout the day for anxiety at home (5) Tobacco abuse: Code(s): Z72.0 - Tobacco use Status: Acute Assessment and Plan: Will start low-dose nicotine patch Plan DVT prophylaxis with Lovenox GI prophylaxis not indicated Code status full code Subjective Date/time seen: 05/28/22 07:44 Interval history: No overnight events noted. No chest pain or shortness of breath. No nausea, vomiting or diarrhea. No fevers or chills. Patient states she feels little anxious and irritable and really does not like getting the steroids and nebulizer treatments. She thinks they do not even help. She is requesting Valium, [place] and a pain patch. Review of Systems Review of Systems: 12 point review of systems was assessed and was negative except as noted in the HPI Exam Narrative: General: No acute distress, alert and oriented per baseline, on 2 L nasal cannula HEENT: Atraumatic, normocephalic, mucous membranes moist CV: Regular rate and rhythm, S1, S2 Lungs: Extremely diminished throughout, a few end expiratory wheezes noted, no crackles or rhonchi Abdomen: Soft, nontender, nondistended Extremities: Normal to inspection Skin: No rashes noted, no lesions or wounds seen Psych: Euthymic, normal affect Objective Data Vital Signs Vital Signs: Vital Signs - 24 hr 05/27/22 15:25 05/27/22 16:05 05/27/22 15:31 Temperature 98.2 F Pulse Rate 98 102 H 102 H Respiratory Rate 22 H 20 22 H Blood Pressure 140/89 Pulse Oximetry 94 92 Oxygen Delivery Nasal Cannula Oxygen Flow Rate 2 05/27/22 15:32 05/27/22 15:45 05/27/22 15:46 Temperature Pulse Rate 101 H 101 H 98 Respiratory Rate 25 H 22 H 17 Blood Pressure 140/89 136/84 Pulse Oximetry 95 95 95 Oxygen Delivery Oxygen Flow Rate 05/27/22 16:01 05/27/22 16:02 05/27/22 16:15 Temperature Pulse Rate 95 91 105 H Respiratory Rate 22 H 17 20 Blood Pressure 137/81 Pulse Oximetry 95 95 99 Oxygen Delivery Oxygen Flow Rate 05/27/22 16:16 05/27/22 16:30 05/27/22 16:31 Temperature Pulse Rate 111 H 114 H 114 H Respiratory Rate 24 H 19 19 Blood Pressure 132/78 131/70 Pulse Oximetry 99 95 95 Oxygen Delivery Oxygen Flow Rate 05/27/22 17:13 05/27/22 16:32 05/27/22 19:12 Temperature 98.9 F Pulse Rate 110 H 101 H Respiratory Rate 21 H 24 H Blood Pressure 132/77 122/75 Pulse Oximetry 93 96 97 Oxygen Delivery Nasal Cannula Oxygen Flow Rate 2 05/27/22 17:32 05/27/22 17:45 05/27/22 17:46 Temperature Pulse Rate 110 H 111 H 113 H Respiratory Rate 21 H 18 23 H Blood Pressure 114/69 Pulse Oximetry 93 95 94 Oxygen Delivery Oxygen Flow Rate 05/27/22 18:00 05/27/22 18:01 05/27/22 18:15 Temperature Pulse Rate 109 H 108 H 104 H Respiratory Rate 21 H 22 H 22 H Blood Pressure 113/64 Pulse Oximetry 93 94 95 Oxygen Delivery Oxygen Flow Rate 05/27/22 18:16 05/27/22 18:30 05/27/22 18:31 Temperature Pulse Rate 1
[2022-05-28] MEDS: FLUTICASONE/SALMETEROL 115-21 MCG INHALER 1 PUFF 2 PUFF INHALATION ×2 (08:54→20:43)
[2022-05-28] MEDS: ENOXAPARIN 40 MG/0.4 ML SYRINGE SUB-Q (10:04)
[2022-05-28] MEDS: ACETAMINOPHEN 325 MG TABLET 650 MG PO (10:12)
--- NOTE | 2022-05-28 14:42 | PCNSR ---
On 05/28/22, the student, Finn Barrios, provided care and completed [employer] documentation on this patient. I have reviewed the student's documentation and agree with the findings.
[2022-05-28] MEDS: guaiFENesin 600 MG/DEXTROMETHORPHAN 30 MG SR TAB 12 HR 1 TAB PO ×2 (15:20→20:28)
[2022-05-28] MEDS: NICOTINE (*PBKC) 7 MG PATCH 1 PATCH TRANSDERM (15:20)
[2022-05-28] MEDS: diazePAM (*CRX) 2.5 MG TABLET PO (20:28)
[2022-05-29 08:00] VITALS: BP 102/55; PULSE 106; RESP 16; TEMP 36.6; O2SAT 92; O2SAT 96
[2022-05-29 08:04] LABS: Basophils Percent Auto 0.3 % (0.2-1.2); Eosinophils Percent Auto 0.6 % (0-4.4); Hematocrit 38.6 % (37.0-47.0); Hemoglobin 12.4 g/dL (12.0-15.0); Immature Granulocyte Absolute 0.02 K/mm3 (0.00-0.031); Immature Granulocyte Percent A 0.3 % (0-0.5); Immature Platelet Fraction Pct 4.6 % (0.9-11.2); Lymphocytes Absolute Auto 2.22 K/mm3 (0.9-3.2); Lymphocytes Percent Auto 33.2 % (18.3-44.2); Mean Corpuscular HGB Conc 32.1 g/dl (32-36); Mean Corpuscular Hemoglobin 32.3 pg (26-34); Mean Corpuscular Volume 100.5 fl (80-100); Monocytes Absolute Auto 0.9 K/mm3 (0.1-0.6); Monocytes Percent Auto 12.9 % (2.6-8.5); Neutrophils Absolute Auto 3.5 K/mm3 (1.3-6.7); Neutrophils Percent Auto 52.7 % (45.5-73.1); Platelet Count Result 112 k/mm3 (150-375); Red Blood Count 3.84 M/mm3 (4.2-5.4); Red Cell Distribution Width 13.2 % (11.5-14.5); White Blood Count 6.7 K/mm3 (4.5-10.0)
[2022-05-29 08:16] LABS: Alanine Aminotransferase 20 U/L (6-35); Albumin Level 3.8 g/dL (3.5-5.1); Alkaline Phosphatase 52 U/L (38-126); Anion Gap 6 mmol/L (8-16); Aspartate Amino Transferase 21 U/L (14-36); Bilirubin,Total 0.4 mg/dL (0.2-1.3); Blood Urea Nitrogen 17 mg/dL (7-17); Calcium 8.7 mg/dL (8.4-10.2); Carbon Dioxide 33 mmol/L (22-30); Chloride 101 mmol/L (98-107); Estimated CRCL calculation 62 ml/min; Estimated Glomerular Filt Rate > 60; Glucose 90 mg/dL (65-110); Potassium 3.3 mmol/L (3.4-5.0); Sodium 140 mmol/L (137-145)
[2022-05-29 08:31] VITALS: PULSE 69; RESP 16
[2022-05-29] MEDS: FLUTICASONE/SALMETEROL 115-21 MCG INHALER 1 PUFF 2 PUFF INHALATION ×2 (08:31→20:41)
[2022-05-29] MEDS: FLUTICASONE/UMECLIDIN/VILANTER 100-62.5-25 MCG ELLIPTA 1 PUFF INHALATION (08:31)
[2022-05-29 08:33] VITALS: O2SAT 92
[2022-05-29] MEDS: guaiFENesin 600 MG/DEXTROMETHORPHAN 30 MG SR TAB 12 HR 1 TAB PO ×2 (09:09→20:23)
[2022-05-29] MEDS: ENOXAPARIN 40 MG/0.4 ML SYRINGE SUB-Q (09:09)
[2022-05-29] MEDS: diazePAM (*CRX) 2.5 MG TABLET PO ×2 (09:09→20:23)
[2022-05-29] MEDS: NICOTINE (*PBKC) 7 MG PATCH 1 PATCH TRANSDERM (09:09)
--- NOTE | 2022-05-29 11:29 | PM.IMPN ---
Progress Note: A&P Assessment and Plan (1) COPD exacerbation: Code(s): J44.1 - Chronic obstructive pulmonary disease with (acute) exacerbation Status: Acute Assessment and Plan: Will start Trelegy, discontinue steroids and nebulizers per patient request, monitor off these, will consult pulmonology 05/29: Pulmonology consult pending (2) Chronic respiratory failure with hypoxia, on home oxygen therapy: Code(s): J96.11 - Chronic respiratory failure with hypoxia; Z99.81 - Dependence on supplemental oxygen Status: Acute Assessment and Plan: Stable on 2 L which is her home dose (3) Pneumonia: Code(s): J18.9 - Pneumonia, unspecified organism Status: Acute Assessment and Plan: Day 3 of azithromycin and ceftriaxone, started May 27, 2022 (4) Anxiety: Code(s): F41.9 - Anxiety disorder, unspecified Status: Acute Assessment and Plan: Valium 2.5 mg orally twice daily as needed Patient uses a THC/CBD gummy several times throughout the day for anxiety at home (5) Tobacco abuse: Code(s): Z72.0 - Tobacco use Status: Acute Assessment and Plan: Will increase nicotine patch from 7 mg to 14 mg Plan DVT prophylaxis with Lovenox GI prophylaxis not indicated Code status full code Subjective Date/time seen: 05/29/22 11:29 Interval history: Improved breathing today, still short of breath. No overnight events noted. No chest pain. No nausea, vomiting or diarrhea. No fevers or chills. Still with anxiety, much improved on the Valium. Review of Systems Review of Systems: 12 point review of systems was assessed and was negative except as noted in the HPI Exam Narrative: General: No acute distress, alert and oriented per baseline, on 2 L nasal cannula HEENT: Atraumatic, normocephalic, mucous membranes moist CV: Regular rate and rhythm, S1, S2 Lungs: More air movement today, wheezes heard throughout the breath cycle, which is an improvement Abdomen: Soft, nontender, nondistended Extremities: Normal to inspection Skin: No rashes noted, no lesions or wounds seen Psych: Euthymic, normal affect Objective Data Vital Signs Vital Signs: Vital Signs - 24 hr 05/28/22 16:00 05/28/22 20:00 05/28/22 20:43 Temperature 98.1 F 97.7 F Pulse Rate 81 88 Respiratory Rate 22 H 20 Blood Pressure 107/64 109/66 Pulse Oximetry 99 94 94 Oxygen Delivery Nasal Cannula Oxygen Flow Rate 2 05/28/22 23:49 05/28/22 20:00 05/29/22 08:00 Temperature 97.8 F Pulse Rate 88 106 H Respiratory Rate 16 Blood Pressure 102/55 L Pulse Oximetry 98 96 Oxygen Delivery Nasal Cannula Oxygen Flow Rate 2 05/29/22 08:31 05/29/22 08:33 Temperature Pulse Rate 69 Respiratory Rate 16 Blood Pressure Pulse Oximetry 92 Oxygen Delivery Nasal Cannula Oxygen Flow Rate 2 Intake/Output Intake/Output: Intake & Output 05/26/22 05/27/22 05/28/22 05/29/22 23:59 23:59 23:59 23:59 Intake Total 300 1050 320 Output Total 2300 600 Balance 300 -1250 -280 Meds/Results Medications: Active Medications Generic Name Dose Route Start Last Admin Trade Name Freq PRN Reason Stop Dose Admin Acetaminophen 650 mg 05/27/22 22:12 05/28/22 10:12 Acetaminophen 325 Mg Tablet PO 650 mg Q6H PRN Administration Mild Pain (1-3) or Fever Cyanocobalamin 1,000 mcg 06/01/22 09:00 Cyanocobalamin Inj 1,000 Mcg/Ml Vial SUB-Q Fr@0900 ISABEL Diazepam 2.5 mg 05/28/22 12:15 05/29/22 09:09 Diazepam (*Crx) 2.5 Mg Tablet PO 2.5 mg BID PRN Administration Anxiety Enoxaparin Sodium 40 mg 05/28/22 09:00 05/29/22 09:09 Enoxaparin 40 Mg/0.4 Ml Syringe SUB-Q 40 mg DAILY ISABEL Administration Fluticasone/Umeclidinium/Vilanterol 1 puff 05/28/22 13:00 05/29/22 08:31 Fluticasone/Umeclidin/Vilanter 100-62.5-25 Mcg Ellipta INHALATION 1 puff DAILYRT ISABEL Administration Guaifenesin/Dextromethorphan
[2022-05-29] MEDS: NICOTINE (*PBKC) 14 MG PATCH 1 PATCH TRANSDERM (15:01)
[2022-05-29 16:00] VITALS: BP 103/61; PULSE 71; RESP 18; TEMP 36.2; O2SAT 98
[2022-05-29] MEDS: POTASSIUM CHLORIDE 20 MEQ TABLET 40 MEQ PO (17:05)
[2022-05-29 20:00] VITALS: PULSE 74; RESP 18; O2SAT 95
[2022-05-29 20:42] VITALS: O2SAT 95
[2022-05-30] VITALS (7 sets, daily range): BP systolic 100–110; BP diastolic 60–62; PULSE 70–74; RESP 16–20; TEMP 36.6–36.7; O2SAT 77–97
--- NOTE | 2022-05-30 00:46 | PC.NURSE ---
This patient, Liset Kunz, was transferred to [[facility] ] on 05/30/22 at 0046. Personal belongings sent with patient. Report given to [Antonia knott ]. Appropriate documentation sent with patient.
[2022-05-30 06:39] LABS: Basophils Percent Auto 0.4 % (0.2-1.2); Eosinophils Absolute Auto 0.1 K/mm3 (0-0.3); Eosinophils Percent Auto 1.1 % (0-4.4); Hematocrit 38.1 % (37.0-47.0); Hemoglobin 12.1 g/dL (12.0-15.0); Immature Granulocyte Absolute 0.01 K/mm3 (0.00-0.031); Immature Granulocyte Percent A 0.2 % (0-0.5); Lymphocytes Absolute Auto 2.57 K/mm3 (0.9-3.2); Lymphocytes Percent Auto 49.1 % (18.3-44.2); Mean Corpuscular HGB Conc 31.8 g/dl (32-36); Mean Corpuscular Volume 100.8 fl (80-100); Mean Platelet Volume 10.2 fl (7.4-10.4); Monocytes Absolute Auto 0.6 K/mm3 (0.1-0.6); Monocytes Percent Auto 11.3 % (2.6-8.5); Neutrophils Percent Auto 37.9 % (45.5-73.1); Platelet Count Result 115 k/mm3 (150-375); Red Blood Count 3.78 M/mm3 (4.2-5.4); Red Cell Distribution Width 13.1 % (11.5-14.5); White Blood Count 5.2 K/mm3 (4.5-10.0)
[2022-05-30 06:56] LABS: Alanine Aminotransferase 16 U/L (6-35); Albumin Level 3.6 g/dL (3.5-5.1); Alkaline Phosphatase 49 U/L (38-126); Anion Gap 6 mmol/L (8-16); Aspartate Amino Transferase 18 U/L (14-36); Bilirubin,Total 0.3 mg/dL (0.2-1.3); Blood Urea Nitrogen 19 mg/dL (7-17); Calcium 8.7 mg/dL (8.4-10.2); Carbon Dioxide 33 mmol/L (22-30); Chloride 100 mmol/L (98-107); Estimated CRCL calculation 58 ml/min; Estimated Glomerular Filt Rate > 60; Glucose 91 mg/dL (65-110); Potassium 3.6 mmol/L (3.4-5.0); Sodium 139 mmol/L (137-145)
[2022-05-30] MEDS: FLUTICASONE/SALMETEROL 115-21 MCG INHALER 1 PUFF 2 PUFF INHALATION ×2 (09:21→21:22)
[2022-05-30] MEDS: FLUTICASONE/UMECLIDIN/VILANTER 100-62.5-25 MCG ELLIPTA 1 PUFF INHALATION (09:22)
[2022-05-30] MEDS: NICOTINE (*PBKC) 14 MG PATCH 1 PATCH TRANSDERM (10:02)
[2022-05-30] MEDS: guaiFENesin 600 MG/DEXTROMETHORPHAN 30 MG SR TAB 12 HR 1 TAB PO ×2 (10:03→20:15)
[2022-05-30] MEDS: ENOXAPARIN 40 MG/0.4 ML SYRINGE SUB-Q (10:03)
[2022-05-30] MEDS: diazePAM (*CRX) 2.5 MG TABLET PO ×2 (10:12→20:18)
--- NOTE | 2022-05-30 14:04 | PM.IMPN ---
Progress Note: A&P Assessment and Plan (1) COPD exacerbation: Code(s): J44.1 - Chronic obstructive pulmonary disease with (acute) exacerbation Status: Acute Assessment and Plan: Started on Trelegy, Steroid and nebulizer increased surgery during this and tremor and hence stopped She is on albuterol inhaler only. On Mucinex Pulmonary consult pending (2) Chronic respiratory failure with hypoxia, on home oxygen therapy: Code(s): J96.11 - Chronic respiratory failure with hypoxia; Z99.81 - Dependence on supplemental oxygen Status: Acute Assessment and Plan: Stable on 2 L which is her home dose (3) Pneumonia: Code(s): J18.9 - Pneumonia, unspecified organism Status: Acute Assessment and Plan: Day for of azithromycin and ceftriaxone, started May 27, 2022 (4) Anxiety: Code(s): F41.9 - Anxiety disorder, unspecified Status: Acute Assessment and Plan: Valium 2.5 mg orally twice daily as needed Patient uses a THC/CBD gummy several times throughout the day for anxiety at home (5) Tobacco abuse: Code(s): Z72.0 - Tobacco use Status: Acute Assessment and Plan: Increase nicotine patch 21 mg daily Plan DVT prophylaxis with Lovenox GI prophylaxis not indicated Code status full code Subjective Date/time seen: 05/30/22 14:04 Interval history: Continues to have shortness of breath with exertion. No chest pain. Fever chills. Active smoker with smoking more than half pack per day Review of Systems Review of Systems: All systems reviewed & are unremarkable except as noted in HPI and below Exam Narrative: General: No acute distress, alert and oriented per baseline, on 2 L nasal cannula HEENT: Atraumatic, normocephalic, mucous membranes moist CV: Regular rate and rhythm, S1, S2 Lungs: Bilateral wheezes heard diffusely present, not in respiratory distress Abdomen: Soft, nontender, nondistended Extremities: No edema cyanosis or clubbing Skin: No rashes noted, no lesions or wounds seen Psych: Euthymic, normal affect Objective Data Vital Signs Vital Signs: Vital Signs - 24 hr 05/29/22 16:00 05/29/22 14:15 05/29/22 20:42 Temperature 97.1 F L Pulse Rate 71 Respiratory Rate 18 Blood Pressure 103/61 Pulse Oximetry 98 95 Oxygen Delivery Nasal Cannula Nasal Cannula Oxygen Flow Rate 2 2 05/29/22 20:00 05/30/22 00:44 05/30/22 06:43 Temperature 97.8 F 97.9 F Pulse Rate 74 74 74 Respiratory Rate 18 18 16 Blood Pressure 109/62 Pulse Oximetry 95 91 95 Oxygen Delivery Nasal Cannula Oxygen Flow Rate 2 05/30/22 06:47 05/30/22 09:25 Temperature 98.0 F Pulse Rate 70 Respiratory Rate 18 Blood Pressure 110/62 Pulse Oximetry 77 L 96 Oxygen Delivery Nasal Cannula Oxygen Flow Rate 2 Intake/Output Intake/Output: Intake & Output 05/27/22 05/28/22 05/29/22 05/30/22 23:59 23:59 23:59 23:59 Intake Total 300 1050 1355 300 Output Total 2300 950 350 Balance 300 -1250 405 -50 Meds/Results Medications: Active Medications Generic Name Dose Route Start Last Admin Trade Name Freq PRN Reason Stop Dose Admin Acetaminophen 650 mg 05/27/22 22:12 05/28/22 10:12 Acetaminophen 325 Mg Tablet PO 650 mg Q6H PRN Administration Mild Pain (1-3) or Fever Cyanocobalamin 1,000 mcg 06/01/22 09:00 Cyanocobalamin Inj 1,000 Mcg/Ml Vial SUB-Q Fr@0900 ISABEL Diazepam 2.5 mg 05/28/22 12:15 05/30/22 10:12 Diazepam (*Crx) 2.5 Mg Tablet PO 2.5 mg BID PRN Administration Anxiety Enoxaparin Sodium 40 mg 05/28/22 09:00 05/30/22 10:03 Enoxaparin 40 Mg/0.4 Ml Syringe SUB-Q 40 mg DAILY ISABEL Administration Fluticasone/Umeclidinium/Vilanterol 1 puff 05/28/22 13:00 05/30/22 09:22 Fluticasone/Umeclidin/Vilanter 100-62.5-25 Mcg Ellipta INHALATION 1 puff DAILYRT ISABEL Administration Guaifenesin/Dextromethorphan 5 ml 05/28/22 00:06 05/28/22 10:11 Gu
[2022-05-30 16:16] LABS: Pneumococcal Antigen Urine Not Detected (Not Detected)
--- NOTE | 2022-05-30 20:22 | PM.CNPUL ---
Assessment and Plan Assessment and plan (1) Pneumonia: Code(s): J18.9 - Pneumonia, unspecified organism Status: Acute Assessment and Plan: CXR 05/27/22 showed Right lung opacities may reflect edema or infection, overlying chronic emphysematous change. She clinically has pneumonia with fever, heavy production of green oliva sputum Cornet valve, Dornase meenakshi to lyze secretions, continue bronchodilators and antibiotics (2) Chronic respiratory failure with hypoxia, on home oxygen therapy: Code(s): J96.11 - Chronic respiratory failure with hypoxia; Z99.81 - Dependence on supplemental oxygen Status: Acute Assessment and Plan: She uses O2 at 2 L/min, now on the same here. (3) Chronic obstructive pulmonary disease: Code(s): J44.9 - Chronic obstructive pulmonary disease, unspecified Status: Acute Assessment and Plan: Emphysema on CT and PFTs At home, uses albuterol neb BID, oxygen, mometasone and formoterol & Spiriva. (4) Tobacco abuse: Code(s): Z72.0 - Tobacco use Status: Acute Assessment and Plan: She realyy wants to quit; on nicotine patches; wants valium to use at home She states she has anxiety. Valium is not the preferred medication for anxiety or tobacco withdrawal. tobacco cessation information; continue nicotine patches, consider Wellbutrin, other medications, no Chantix. behavioral information will be helpful Had 3 minutes of tobacco cessation discussion She was on diazepam in the past, office note shows that she had to wean as she was also using marijuana. History of Present Illness History of Present Illness Consult date: 05/30/22 Requesting physician: Rissa Huerta DO Chief complaint: COPD,CP,Pneumonia Narrative: NEW CONSULT : Liset Kunz is a 61 yo F who we follow in the office for COPD, around the clock O2 use, tobacco smoking and nodules. She was last in the office 02/14/2022. She was on a road trip to [place], [place] this past weekend with her boyfriend when she developed increased cough, discolored sputum with oliva-green color, shortness of breath and increased anxiety. She was smoking a half pack a day, however due to increased dyspnea was only able to smoke 3 cigarettes Saturday and 2 puffs off one cigarette on Saturday. They drove back Saturday and came directly to the hospital May 27 where she was admitted with pneumonia and COPD. She was not really eating. She had subjective fever, chills, and difficulty taking a deep breath. She has had a COVID booster, plans to get a flu shot soon. She was not exposed to sick contacts. She has been on O2 at night for a while, and on O2 around the clock for about a year. DATA * 05/27/2022 CXR MPRESSION: Right lung opacities may reflect edema or infection, overlying chronic emphysematous change. * PFT @ [facility] 2013 moderate COPD. * Echo 04/16/19 EF 60-65%. Grade I diastolic dysfunction. No pulm HTN. * Home O2 Eval 12/12/2020 showed need for 1L O2 with activity. * Overnight oximetry 09/17/16 shows need for 2L at night. Need to use it every night with sleep. * CXR 07/20/21 The lungs are free of acute opacities. Calcified pulmonary nodules are consistent with old granulomatous disease. There is no pleural effusion or pneumothorax. The cardiomediastinal silhouette is normal. There is moderate thoracic spondylosis. Review of Systems Review of Systems: All systems reviewed & are unremarkable except as noted in HPI and below [facility] Past Medical History Medical History (Updated 05/28/22 @ 20:23 by Kevin Nieves MD) Acid reflux Anxiety Chronic obstructive pulmonary disease Chronic respiratory failure with hypoxia, on home oxygen therapy D
[2022-05-31] VITALS (8 sets, daily range): BP systolic 107–120; BP diastolic 66–74; PULSE 65–77; RESP 16–20; TEMP 36.3–36.7; O2SAT 93–98
[2022-05-31 07:07] LABS: Basophils Percent Auto 0.4 % (0.2-1.2); Eosinophils Absolute Auto 0.1 K/mm3 (0-0.3); Eosinophils Percent Auto 1.2 % (0-4.4); Hematocrit 38.5 % (37.0-47.0); Hemoglobin 12.4 g/dL (12.0-15.0); Immature Granulocyte Absolute 0.01 K/mm3 (0.00-0.031); Immature Granulocyte Percent A 0.2 % (0-0.5); Immature Platelet Fraction Pct 4.1 % (0.9-11.2); Lymphocytes Absolute Auto 2.61 K/mm3 (0.9-3.2); Lymphocytes Percent Auto 50.1 % (18.3-44.2); Mean Corpuscular HGB Conc 32.2 g/dl (32-36); Mean Corpuscular Volume 99.5 fl (80-100); Mean Platelet Volume 9.9 fl (7.4-10.4); Monocytes Absolute Auto 0.6 K/mm3 (0.1-0.6); Monocytes Percent Auto 11.7 % (2.6-8.5); Neutrophils Absolute Auto 1.9 K/mm3 (1.3-6.7); Neutrophils Percent Auto 36.4 % (45.5-73.1); Platelet Count Result 134 k/mm3 (150-375); Red Blood Count 3.87 M/mm3 (4.2-5.4); White Blood Count 5.2 K/mm3 (4.5-10.0)
[2022-05-31 07:17] LABS: Alanine Aminotransferase 20 U/L (6-35); Albumin Level 3.8 g/dL (3.5-5.1); Alkaline Phosphatase 51 U/L (38-126); Anion Gap 6 mmol/L (8-16); Aspartate Amino Transferase 21 U/L (14-36); Bilirubin,Total 0.4 mg/dL (0.2-1.3); Blood Urea Nitrogen 14 mg/dL (7-17); Calcium 8.7 mg/dL (8.4-10.2); Carbon Dioxide 31 mmol/L (22-30); Chloride 101 mmol/L (98-107); Estimated CRCL calculation 60 ml/min; Estimated Glomerular Filt Rate > 60; Glucose 90 mg/dL (65-110); Potassium 3.8 mmol/L (3.4-5.0); Sodium 138 mmol/L (137-145)
[2022-05-31 07:46] LABS: Atypical Lymphocytes Present; Platelet Estimate Decreased (Adequate); Schistocytes None Seen (NORMAL)
[2022-05-31] MEDS: DORNASE ALFA INH SOLN 1 MG/ML 2.5 ML AMP 2.5 MG INHALATION ×2 (08:47→20:23)
[2022-05-31] MEDS: FLUTICASONE/SALMETEROL 115-21 MCG INHALER 1 PUFF 2 PUFF INHALATION ×2 (08:48→20:23)
[2022-05-31] MEDS: FLUTICASONE/UMECLIDIN/VILANTER 100-62.5-25 MCG ELLIPTA 1 PUFF INHALATION (08:48)
[2022-05-31] MEDS: NICOTINE (*PBKC) 21 MG PATCH 1 PATCH TRANSDERM (09:33)
[2022-05-31] MEDS: guaiFENesin 600 MG/DEXTROMETHORPHAN 30 MG SR TAB 12 HR 1 TAB PO ×2 (09:33→20:10)
[2022-05-31] MEDS: ENOXAPARIN 40 MG/0.4 ML SYRINGE SUB-Q (09:33)
[2022-05-31] MEDS: diazePAM (*CRX) 2.5 MG TABLET PO ×2 (09:42→20:11)
[2022-05-31] MEDS: ACETAMINOPHEN 325 MG TABLET 650 MG PO (14:49)
--- NOTE | 2022-05-31 15:03 | ECG_ITS ---
Measurements Intervals [place] Rate: 79 P: 5 AL: 127 QRS: 88 QRSD: 120 T: 76 QT: 397 QTc: 457 Interpretive Statements SINUS RHYTHM RIGHT BUNDLE BRANCH BLOCK [120+ ms QRS DURATION, UPRIGHT V1, 40+ ms S IN I/aVL/V4/V5/V6] COMPARED TO ECG 05/27/2022 15:29:36 NO SIGNIFICANT CHANGES Electronically Signed On 06-01-2022 13:50:30 CDT by Rogelio Adler M.D.
[2022-05-31] MEDS: CALCIUM CARBONATE (TUMS) 500 MG (200 MG ELEMENTAL) PO (15:33)
[2022-05-31 15:39] LABS: Troponin I < 0.012 ng/mL (0.000-0.034)
--- NOTE | 2022-05-31 16:22 | PM.IMPN ---
Progress Note: A&P Assessment and Plan (1) COPD exacerbation: Code(s): J44.1 - Chronic obstructive pulmonary disease with (acute) exacerbation Status: Acute Assessment and Plan: Started on Trelegy, Steroid and nebulizer increased surgery during this and tremor and hence stopped She is on albuterol inhaler only. On Mucinex Pulmonary consult. reviewed her recommendation (2) Chronic respiratory failure with hypoxia, on home oxygen therapy: Code(s): J96.11 - Chronic respiratory failure with hypoxia; Z99.81 - Dependence on supplemental oxygen Status: Acute Assessment and Plan: Stable on 2 L which is her home dose (3) Pneumonia: Code(s): J18.9 - Pneumonia, unspecified organism Status: Acute Assessment and Plan: Day 5 of azithromycin and ceftriaxone, started May 27, 2022. (4) Anxiety: Code(s): F41.9 - Anxiety disorder, unspecified Status: Acute Assessment and Plan: Valium 2.5 mg orally twice daily as needed Patient uses a THC/CBD gummy several times throughout the day for anxiety at home (5) Tobacco abuse: Code(s): Z72.0 - Tobacco use Status: Acute Assessment and Plan: Increase nicotine patch 21 mg daily (6) Chest pain: Code(s): R07.9 - Chest pain, unspecified Status: Acute Assessment and Plan: on 05/31/2022 atypical EKG doneWith no new acute changes troponin negative Will try Tums Chest x-ray with subtle right lower lobe opacity Plan DVT prophylaxis with Lovenox GI prophylaxis not indicated Code status full code Subjective Date/time seen: 05/31/22 16:22 Interval history: patient feels a bit better. Later in the afternoon had some chest pain. Burning Type sensation. Shortness of breath on exertion persists. Wheezing is improved. Review of Systems Review of Systems: All systems reviewed & are unremarkable except as noted in HPI and below Exam Narrative: General: No acute distress, alert and oriented per baseline, on 2 L nasal cannula HEENT: Atraumatic, normocephalic, mucous membranes moist CV: Regular rate and rhythm, S1, S2 Lungs: Coarse breath sound bilaterally equal air entry not in respiratory distress Abdomen: Soft, nontender, nondistended Extremities: No edema cyanosis or clubbing Skin: No rashes noted, no lesions or wounds seen Psych: Euthymic, normal affect Objective Data Vital Signs Vital Signs: Vital Signs - 24 hr 05/30/22 20:00 05/30/22 21:23 05/30/22 21:48 Temperature 97.9 F Pulse Rate 70 Respiratory Rate 20 Blood Pressure 100/60 Pulse Oximetry 96 95 97 Oxygen Delivery Nasal Cannula Nasal Cannula Oxygen Flow Rate 2 2 05/31/22 05:58 05/31/22 08:49 05/31/22 08:49 Temperature 97.4 F L Pulse Rate 65 76 Respiratory Rate 20 16 Blood Pressure 115/74 Pulse Oximetry 95 93 Oxygen Delivery Nasal Cannula Oxygen Flow Rate 2 05/31/22 08:56 05/31/22 09:33 05/31/22 13:57 Temperature 97.6 F Pulse Rate 77 72 Respiratory Rate 16 16 Blood Pressure 107/66 Pulse Oximetry 93 98 Oxygen Delivery Nasal Cannula Oxygen Flow Rate 2 Intake/Output Intake/Output: Intake & Output 05/28/22 05/29/22 05/30/22 05/31/22 23:59 23:59 23:59 23:59 Intake Total 1050 1355 1190 1460 Output Total 2300 950 1450 Balance -1250 405 -260 1460 Meds/Results Medications: Active Medications Generic Name Dose Route Start Last Admin Trade Name Freq PRN Reason Stop Dose Admin Acetaminophen 650 mg 05/27/22 22:12 05/31/22 14:49 Acetaminophen 325 Mg Tablet PO 650 mg Q6H PRN Administration Mild Pain (1-3) or Fever Cyanocobalamin 1,000 mcg 06/01/22 09:00 Cyanocobalamin Inj 1,000 Mcg/Ml Vial SUB-Q Fr@0900 [facility] Diazepam 2.5 mg 05/28/22 12:15 05/31/22 09:42 Diazepam (*Crx) 2.5 Mg Tablet PO 2.5 mg BID PRN Administration Anxiety Dornase Eitan 2.5 mg 05/31/22 08:00 05/31/22 08:47
[2022-05-31 16:23] LABS: Legionella pneumophila Ag Ur Not Detected (Not Detected)
[2022-05-31 18:40] LABS: Mycoplasma IgM Antibody Titer 289 U/mL (<770)
[2022-05-31] MEDS: PANTOPRAZOLE 40 MG TABLET PO (20:10)
[2022-06-01 06:32] LABS: Basophils Percent Auto 0.2 % (0.2-1.2); Eosinophils Absolute Auto 0.1 K/mm3 (0-0.3); Eosinophils Percent Auto 1.9 % (0-4.4); Hematocrit 39.2 % (37.0-47.0); Hemoglobin 12.6 g/dL (12.0-15.0); Immature Granulocyte Absolute 0.01 K/mm3 (0.00-0.031); Immature Granulocyte Percent A 0.2 % (0-0.5); Immature Platelet Fraction Pct 4.4 % (0.9-11.2); Lymphocytes Absolute Auto 2.32 K/mm3 (0.9-3.2); Lymphocytes Percent Auto 49.9 % (18.3-44.2); Mean Corpuscular HGB Conc 32.1 g/dl (32-36); Mean Corpuscular Volume 99.5 fl (80-100); Mean Platelet Volume 10.1 fl (7.4-10.4); Monocytes Absolute Auto 0.6 K/mm3 (0.1-0.6); Monocytes Percent Auto 11.8 % (2.6-8.5); Neutrophils Absolute Auto 1.7 K/mm3 (1.3-6.7); Platelet Count Result 155 k/mm3 (150-375); Red Blood Count 3.94 M/mm3 (4.2-5.4); Red Cell Distribution Width 12.7 % (11.5-14.5); White Blood Count 4.7 K/mm3 (4.5-10.0)
[2022-06-01 06:43] LABS: Alanine Aminotransferase 49 U/L (6-35); Alkaline Phosphatase 53 U/L (38-126); Anion Gap 12 mmol/L (8-16); Aspartate Amino Transferase 50 U/L (14-36); Bilirubin,Total 0.4 mg/dL (0.2-1.3); Blood Urea Nitrogen 12 mg/dL (7-17); Calcium 9.1 mg/dL (8.4-10.2); Carbon Dioxide 33 mmol/L (22-30); Chloride 97 mmol/L (98-107); Estimated CRCL calculation 53 ml/min; Estimated Glomerular Filt Rate > 60; Glucose 98 mg/dL (65-110); Potassium 4.5 mmol/L (3.4-5.0); Sodium 142 mmol/L (137-145)
[2022-06-01 07:34] VITALS: PULSE 68; RESP 16
[2022-06-01] MEDS: DORNASE ALFA INH SOLN 1 MG/ML 2.5 ML AMP 2.5 MG INHALATION (07:34)
[2022-06-01] MEDS: FLUTICASONE/UMECLIDIN/VILANTER 100-62.5-25 MCG ELLIPTA 1 PUFF INHALATION (07:36)
[2022-06-01 07:38] VITALS: O2SAT 93
[2022-06-01] MEDS: FLUTICASONE/SALMETEROL 115-21 MCG INHALER 1 PUFF 2 PUFF INHALATION (07:40)
[2022-06-01 07:46] VITALS: PULSE 76; RESP 16
[2022-06-01 08:00] VITALS: BP 100/56; PULSE 74; RESP 20; TEMP 36.4; O2SAT 94; O2SAT 96
[2022-06-01] MEDS: guaiFENesin 600 MG/DEXTROMETHORPHAN 30 MG SR TAB 12 HR 1 TAB PO (08:04)
[2022-06-01] MEDS: CYANOCOBALAMIN INJ 1,000 MCG/ML VIAL 1000 MCG SUB-Q (08:04)
[2022-06-01] MEDS: ENOXAPARIN 40 MG/0.4 ML SYRINGE SUB-Q (08:04)
[2022-06-01] MEDS: PANTOPRAZOLE 40 MG TABLET PO (08:04)
[2022-06-01] MEDS: NICOTINE (*PBKC) 21 MG PATCH 1 PATCH TRANSDERM (08:04)
[2022-06-01] MEDS: ACETAMINOPHEN 325 MG TABLET 650 MG PO (08:10)
[2022-06-01 14:00] VITALS: BP 107/74; PULSE 91; RESP 20; TEMP 36.3; O2SAT 95
--- NOTE | 2022-06-01 15:25 | PM.DS ---
DS: Admitting Diagnosis Discharge Date 06/01/2022 Admitting Diagnosis shortness of breath DS: Discharge Diagnosis Discharge Diagnosis (1) COPD exacerbation: Code(s): J44.1 - Chronic obstructive pulmonary disease with (acute) exacerbation Status: Acute (2) Chronic respiratory failure with hypoxia, on home oxygen therapy: Code(s): J96.11 - Chronic respiratory failure with hypoxia; Z99.81 - Dependence on supplemental oxygen Status: Acute (3) Pneumonia: Code(s): J18.9 - Pneumonia, unspecified organism Status: Acute (4) Anxiety: Code(s): F41.9 - Anxiety disorder, unspecified Status: Acute (5) Tobacco abuse: Code(s): Z72.0 - Tobacco use Status: Acute (6) Chest pain: Code(s): R07.9 - Chest pain, unspecified Status: Acute DS: Summary Hospital Course Hospital Course: # COPD exacerbation: Treated with IV steroid and nebulizer. This increased her anxiety and tremor and hence was stopped. She maintain on albuterol inhaler only. She that on Mucinex and cornet valve. Pulmonary consulted. She will be switched to her home Dulera and Spiriva. Delete that # chronic respiratory failure with hypoxia on home oxygen therapy Stable on 2 L which is her home dose # pneumonia: Completed 5 days of azithromycin during the hospital stay. Change ceftriaxone to Omnicef at discharge. # anxiety disorder: Valium 2.5 mg orally twice daily as needed Patient uses a THC/CBD gummy several times throughout the day for anxiety at home # tobacco abuse: nicotine patch 21 mg daily Will continue # chest pain atypical: ?on 05/31/2022 atypical EKG doneWith no new acute changes ?troponin negative Tums tried which helped. Likely reflux disease related Chest x-ray with subtle right lower lobe opacity started on PPI. # DVT prophylaxis with Lovenox #Code status full code Time Spent with Patient Time attestation: Total time spent providing and/or coordinating discharge services: 45 minutes Exam Narrative: General: No acute distress, alert and oriented per baseline, on 2 L nasal cannula HEENT: Atraumatic, normocephalic, mucous membranes moist CV: Regular rate and rhythm, S1, S2 Lungs: Coarse breath sound bilaterally equal air entry not in respiratory distress Abdomen: Soft, nontender, nondistended Extremities: No edema cyanosis or clubbing Skin: No rashes noted, no lesions or wounds seen Psych: Euthymic, normal affect DS: Data Data Completed and Pending Labs on day of discharge: Labs from last 24 hours 06/01/22 06/01/22 05/31/22 06:07 06:07 15:11 WBC 4.7 RBC 3.94 L Hgb 12.6 Hct 39.2 MCV 99.5 MCH 32.0 MCHC 32.1 RDW 12.7 Plt Count 155 MPV 10.1 Immature Gran % (Auto) 0.2 Neut % (Auto) 36.0 L Lymph % (Auto) 49.9 H Chase % (Auto) 11.8 H Eos % (Auto) 1.9 Baso % (Auto) 0.2 Lymph # (Auto) 2.32 Chase # (Auto) 0.6 Eos # (Auto) 0.1 Baso # (Auto) 0.0 Abs Immat Gran (auto) 0.01 Absolute Neuts (auto) 1.7 Absolute Nucleated RBC 0.0 Nucleated RBC % 0.0 % Immature Plt Fraction 4.4 Sodium 142 Potassium 4.5 Chloride 97 L Carbon Dioxide 33 H Anion Gap 12 BUN 12 Creatinine 0.70 Estim Creat Clear Calc 53 Estimated GFR > 60 Glucose 98 Calcium 9.1 Total Bilirubin 0.4 AST 50 H ALT 49 H Alkaline Phosphatase 53 Troponin I < 0.012 Total Protein 7.0 Albumin 4.0 Ur L.pneumophila Ag Mycoplasma pneumon IgM 05/28/22 05/27/22 04:12 22:12 WBC RBC Hgb Hct MCV MCH MCHC RDW Plt Count MPV Immature Gran % (Auto) Neut % (Auto) Lymph % (Auto) Chase % (Auto) Eos % (Auto) Baso % (Auto) Lymph # (Auto) Chase # (Auto) Eos # (Auto) Baso # (Auto) Abs Immat Gran (auto) Absolute Neuts (auto) Absolute Nucleated RBC Nucleated RBC % % Immature Plt Fraction
== END 2022-06-01 15:55 | disposition home or self-care (01) | DRG 140 ==
LOC: ANHED 15:53 → ANHIMU 18:27 → ANH3MEDSUR 05-30 00:10
PROVIDERS: Emergency Medicine; Physician Assistant; Student in an Organized Health Care Education/Training Program; Admitting Provider Family Medicine; Emergency Provider Emergency Medicine; PCP Family Medicine; Visit Provider Internal Medicine
DX: J44.0 Chronic obstructive pulmonary disease with (acute) lower respiratory infection (principal); J18.9 Pneumonia, unspecified organism; J96.11 Chronic respiratory failure with hypoxia; J44.1 Chronic obstructive pulmonary disease with (acute) exacerbation; F41.9 Anxiety disorder, unspecified; Z20.822 Contact with and (suspected) exposure to COVID-19; K21.9 Gastro-esophageal reflux disease without esophagitis; F32.A Depression, unspecified; F17.210 Nicotine dependence, cigarettes, uncomplicated; Z99.81 Dependence on supplemental oxygen; Z98.42 Cataract extraction status, left eye; Z98.41 Cataract extraction status, right eye
CPT/HCPCS: 36415; 36600; 71045; 80053; 82375; 82805; 83050; 84484; 85025; 85055; 86738; 87070; 87205; 87449; 87502; 87899; 93005; 94640; 94667; 96365; 96366; 96368; 96372; 96375; 96376; 97161; 97165; 99285; A9270; C9803; G0378; G0379; J0456; J0696; J1650; J2270; J2920; J2930; J3420; U0003; U0005

== ENCOUNTER 2022-07-06 10:28 | Outpatient (CLI) | payer OTHER, SELFPAY ==
[2022-07-06 12:06] LABS: Free T4 Free Thyroxine 1.39 ng/mL (0.78-2.19); Vitamin D 25 Hydroxy 56.5 ng/mL
[2022-07-06 19:19] LABS: Alanine Aminotransferase 14 U/L (6-35); Albumin Level 4.6 g/dL (3.5-5.1); Alkaline Phosphatase 65 U/L (38-126); Anion Gap 11 mmol/L (8-16); Aspartate Amino Transferase 20 U/L (14-36); Bilirubin,Total 0.4 mg/dL (0.2-1.3); Blood Urea Nitrogen 12 mg/dL (7-17); Carbon Dioxide 25 mmol/L (22-30); Chloride 105 mmol/L (98-107); Estimated Glomerular Filt Rate > 60; Glucose 96 mg/dL (65-110); Potassium 3.9 mmol/L (3.4-5.0); Sodium 141 mmol/L (137-145)
[2022-07-06 19:50] LABS: Thyroid Stimulating Hormone 0.477 uIU/mL (0.465-4.680)
[2022-07-07] LABS: Folic Acid 5.1 ng/mL (2.76->20)
== END 2022-07-06 10:29 | disposition home or self-care (01) ==
PROVIDERS: PCP Family Medicine; Referring Provider Nurse Practitioner; Visit Provider Internal Medicine Critical Care Medicine
DX: J44.9 Chronic obstructive pulmonary disease, unspecified (principal); E06.3 Autoimmune thyroiditis; E53.8 Deficiency of other specified B group vitamins; E55.9 Vitamin D deficiency, unspecified
CPT/HCPCS: 36415; 80053; 82306; 82607; 82746; 84439; 84443; 84481; 86376; 87015; 87070; 87102; 87106; 87107; 87116; 87205; 87206

== ENCOUNTER 2022-07-10 13:18 | Outpatient (CLI) | payer OTHER, SELFPAY ==
--- NOTE | ~2022-07-10 | CT_ITS ---
EXAMINATION: CT diagnostic chest wo con DATE: 07/10/2022 13:30 INDICATION: Pulmonary nodule. COPD. Smoker. TECHNIQUE: Computed tomography (CT) of the chest was performed without intravenous contrast. Automate d exposure control and iterative reconstruction technique were employed. Exam dose: 61.00 mGy-cm tot al exam DLP. COMPARISON: 05/31/2022 portable AP chest 01/06/2022 CT lung screening FINDINGS: Normal heart size. There is thoracic aortic calcification but no thoracic aortic aneurysm. No hilar or mediastinal mass lesion or lymphadenopathy is detected. There is calcified right hilar no jaqueline and calcified right lower lobe pulmonary granuloma and calcified bilateral upper lobe pulmonary g ranulomas (previously reported 4 mm right upper lobe nodule and 4 mm left upper lobe nodule on 022 CT thorax) consistent with old granulomatous disease. Moderately prominent emphysematous changes of the lungs. Chronic small discoid scarring in the posterior left upper lobe. Discoid atelectasis or scarring in the anterior basilar right lower lobe and posterior right lung bas e. There is a new spiculated 7.9 mm mass in the medial superior segment, right lower lobe (series 4 imag e 52), not present on 01/06/2022. Differential diagnosis includes new pulmonary granuloma versus bronc hogenic carcinoma or less likely metastasis.. Approximately 3 mm nonobstructing left renal calculus. The adrenal glands are unremarkable. Degenerative disc disease in the lower cervical spine and degenerative spurring of the thoracic spine . No suspicious osteolytic or osteoblastic lesions are noted. IMPRESSION: New spiculated 7.9 mm mass in the medial right lower lobe, superior segment. Differentia l diagnosis includes new pulmonary granuloma versus bronchogenic carcinoma or pulmonary metastasis. C onsider CT thorax follow-up in 3-6 months. Moderately prominent emphysema Old pulmonary granulomatous disease with stable 4 mm calcified probable granulomas in both upper lobe s in addition to right lower lobe calcified pulmonary granuloma Dr. Roberto reported the 7.9 mm mass in the superior segment of the right lower lobe. Loco Harris on 1056 hours. Reviewed, dictated and finalized at [facility]. Reviewed, dictated and finalized at [facility]. F ATTORNEY IMPRESSION: New spiculated 7.9 mm mass in the medial right lower lobe, superio r segment. Differential diagnosis includes new pulmonary granuloma versus bronc hogenic carcinoma or pulmonary metastasis. Consider CT thorax follow-up in 3-6 months. Moderately prominent emphysema Old pulmonary granulomatous disease with stable 4 mm calcified probable granulo mas in both upper lobes in addition to right lower lobe calcified pulmonary gra nuloma Dr. Roberto reported the 7.9 mm mass in the superior segment of the right lower lo be. Loco Harris on 07/11/2022 1056 hours.
== END 2022-07-10 13:19 | disposition home or self-care (01) ==
LOC: ANHIMG 13:19
PROVIDERS: PCP Family Medicine; Visit Provider Nurse Practitioner Family
DX: R91.1 Solitary pulmonary nodule (principal); R91.8 Other nonspecific abnormal finding of lung field; J43.9 Emphysema, unspecified
CPT/HCPCS: 71250

== ENCOUNTER 2022-09-10 14:33 | Outpatient (CLI) | payer OTHER, SELFPAY ==
--- NOTE | ~2022-09-10 | XR_ITS ---
EXAM: XR shoulder RT min 2V DATE: 09/10/2022 14:54 HISTORY: PRIMARY OA, R SHOULDER;PAIN IN R SHOULDER, no inj . COMPARISON: 04/20/2022. FINDINGS: Decreased mineralization. No fracture or dislocation. No lytic or blastic lesion. Mild AC joint hypertrophy and glenohumeral osteoarthritis. No erosion or periosteal change. Calcified pulmona ry granuloma and right hilar lymph nodes. IMPRESSION: Polyarticular osteoarthritis. Reviewed, dictated and finalized at location [facility]. 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
== END 2022-09-10 14:34 | disposition home or self-care (01) ==
PROVIDERS: PCP Family Medicine; Visit Provider Nurse Practitioner Adult Health
DX: M19.011 Primary osteoarthritis, right shoulder (principal)
CPT/HCPCS: 73030

== ENCOUNTER 2022-09-22 10:38 | Outpatient (CLI) | payer OTHER, SELFPAY ==
--- NOTE | ~2022-09-22 | MR_ITS ---
MRI of the right shoulder Technique: Axial proton-density fat-sat images, coronal proton density fat-sat and T2 fat-sat images, and sagittal T1-weighted and T2 fat-sat images were acquired. Clinical History: Osteoarthritis Findings: There is mild AC joint degenerative change, probable small subacromial spur. Coracoclavicul ar, coracoacromial, and coracohumeral ligaments are intact. Supraspinatus and infraspinatus tendons are intact, without partial or full-thickness tear. There is mild to moderate tendinosis. Subscapularis tendon is intact with mild to moderate tendinosis. Tendon of long head of the biceps is intact. Glenoid labrum is intact, without evidence of tear. Inferior glenohumeral ligament is intact. No significant degenerative change of the glenohumeral join t identified. No joint effusion. Minimal fluid present in the subacromial/subdeltoid bursa. No muscle atrophy or edema identified. Impression: Zrms-tf-qitagnif rotator cuff tendinosis without partial or full-thickness tear. Minimal subacromial/subdeltoid bursitis. Mild AC joint degenerative change. Reviewed, dictated and finalized at [facility]. RESPIRATORY Impression: Vrsh-[id number]-tiblchgd rotator cuff tendinosis without partial or full-thickness tear . Minimal subacromial/subdeltoid bursitis. Mild AC joint degenerative change.
--- NOTE | ~2022-09-22 | CT_ITS ---
EXAMINATION:CT diagnostic chest wo con DATE: 09/22/2022 11:52 INDICATION: Lung nodule. TECHNIQUE: Computed tomography (CT) of the chest was performed without intravenous contrast. Automate d exposure control and iterative reconstruction technique were employed. The dose-length product (DLP ) was 61.12 mGy-cm. COMPARISON: Chest CT 07/10/2022, 01/06/2022, 12/20/20 FINDINGS: There is severe emphysema. There is mild atelectasis in right lower lobe. Calcified right l zurdo nodules and calcified right hilar lymph nodes are consistent with old granulomatous disease. In t he right upper lobe, there is a 4 mm nodule, stable from 12/20/20. In the right lower lobe, there is a 7 mm nodule, stable from 07/10/22 and new from 01/06/22. In the left upper lobe, there is a 5 mm nodu le, stable from 01/06/22. In the left upper lobe, there is a 3 mm nodule, improved from 01/06/22. No pl eural effusion. The heart size is normal. No pericardial effusion. There is a 3 mm stone in left kidn ey. There is mild thoracic spondylosis. IMPRESSION: 1. Lung-RADS category 3: Probably benign. Further evaluation is recommended with noncontrast low-dose chest CT in 6 months. Reviewed, dictated and finalized at location [facility]. 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 Lung-RADS category 3: Probably benign. Further evaluation is recommended wit h noncontrast low-dose chest CT in 6 months.
== END 2022-09-22 10:39 | disposition home or self-care (01) ==
PROVIDERS: PCP Family Medicine; Visit Provider Nurse Practitioner Family
DX: R91.1 Solitary pulmonary nodule (principal); M25.511 Pain in right shoulder; M19.011 Primary osteoarthritis, right shoulder; M75.51 Bursitis of right shoulder
CPT/HCPCS: 71250; 73221

== ENCOUNTER 2022-11-05 12:37 | Outpatient (NON) | payer OTHER, SELFPAY | END 2022-11-05 12:38 | disposition home or self-care (01) | LOC: ANHLAB 12:37 | PROVIDERS: PCP Family Medicine; Visit Provider Nurse Practitioner Family | DX: R09.3 Abnormal sputum (principal) | CPT/HCPCS: 87015; 87070; 87102; 87106; 87116; 87205; 87206 ==

== ENCOUNTER 2022-11-12 11:25 | Outpatient (CLI) | payer OTHER, SELFPAY ==
--- NOTE | ~2022-11-12 | XR_ITS ---
EXAMINATION: XR chest 2V DATE: 11/12/2022 11:39 INDICATION: Cough. COPD/emphysema. TECHNIQUE: PA and lateral views of the chest were obtained. COMPARISON: Chest CT dated 09/22/2022 FINDINGS: Mild hyperexpansion of lungs consistent with emphysema better appreciated on prior CT. Calcified righ t lower lobe nodule and calcified right hilar lymph nodes consistent with old granulomatous disease. Unchanged mild linear atelectasis/scarring at the costophrenic angle of the lateral right lung base. No other airspace opacities, pulmonary edema, pleural effusion or pneumothorax. The cardiomediastinal silhouette is normal. Mild thoracic spondylosis. IMPRESSION: 1. Emphysema with unchanged mild right basilar atelectasis/scarring. No other acute cardiopulmonary d isease. Reviewed, dictated and finalized at location A. IMPRESSION: 1. Emphysema with unchanged mild right basilar atelectasis/scarring. No other a cute cardiopulmonary disease.
== END 2022-11-12 11:26 | disposition home or self-care (01) ==
LOC: ANHIMG 11:26
PROVIDERS: PCP Family Medicine; Visit Provider Nurse Practitioner Family
DX: R05.9 Cough, unspecified (principal); J43.9 Emphysema, unspecified
CPT/HCPCS: 71046

== ENCOUNTER 2022-11-29 15:04 | Outpatient (CLI) | payer OTHER, SELFPAY ==
--- NOTE | ~2022-11-29 | MM_ITS ---
EXAMINATION: MM screening [facility] BI w samantha HISTORY: Screening mammogram TECHNIQUE: Craniocaudal and mediolateral oblique 3-D tomosynthesis images were obtained and synthetic 2-D images were generated. CAD analysis was submitted and interpreted. COMPARISON: 11/07/2021, 08/17/2019, 01/13/2018 BREAST PARENCHYMAL COMPOSITION: There are scattered areas of fibroglandular density. FINDINGS: No suspicious mass, calcification, or architectural distortion are identified in either grecia ast to suggest malignancy. There has been no suspicious interval change. IMPRESSION: 1. No mammographic evidence of malignancy. 2. Recommend routine screening mammography in one year. BI-RADS Category 1: Negative Reviewed, dictated and finalized at location A.
== END 2022-11-29 15:05 | disposition home or self-care (01) ==
PROVIDERS: PCP Family Medicine; Visit Provider Family Medicine
DX: Z12.31 Encounter for screening mammogram for malignant neoplasm of breast (principal)
CPT/HCPCS: 77063; 77067

== ENCOUNTER 2023-04-03 13:58 | Outpatient (CLI) | payer OTHER, SELFPAY ==
--- NOTE | ~2023-04-03 | CT_ITS ---
EXAMINATION:CT diagnostic chest wo con DATE: 04/03/2023 14:15 INDICATION: Pulmonary nodules. TECHNIQUE: Computed tomography (CT) of the chest was performed without intravenous contrast. Automate d exposure control and iterative reconstruction technique were employed. The dose-length product (DLP ) was 58.87 mGy-cm. COMPARISON: Chest CT 09/22/2022 FINDINGS: There is severe emphysema. There is a stable 7 mm nodule in right lower lobe. A calcified r ight lung nodule and calcified right hilar lymph nodes are consistent with old granulomatous disease. In the right upper lobe, there is a stable 4 mm nodule. There is a stable 4 mm nodule in left upper lobe. No pleural effusion. The heart size is normal. No pericardial effusion. There is a 3 mm stone i n left kidney. There is mild thoracic spondylosis. IMPRESSION: 1. Lung-RADS category 2: Benign appearance or behavior. Continue annual screening with noncontrast lo w-dose chest CT in 12 months. Reviewed, dictated and finalized at location A. IMPRESSION: 1. Lung-RADS category 2: Benign appearance or behavior. Continue annual screeni ng with noncontrast low-dose chest CT in 12 months.
== END 2023-04-03 13:59 | disposition home or self-care (01) ==
PROVIDERS: PCP Family Medicine; Visit Provider Internal Medicine Critical Care Medicine
DX: R91.8 Other nonspecific abnormal finding of lung field (principal)
CPT/HCPCS: 71250

== ENCOUNTER 2023-04-06 10:51 | Outpatient (CLI) | payer OTHER, SELFPAY ==
[2023-04-06 11:26] LABS: Anion Gap 6 mmol/L (8-16); Aspartate Amino Transferase 23 U/L (14-36); Bilirubin,Total 0.4 mg/dL (0.2-1.3); Blood Urea Nitrogen 14 mg/dL (7-17); Carbon Dioxide 29 mmol/L (22-30); Chloride 104 mmol/L (98-107); Estimated Glomerular Filt Rate > 60; Glucose 98 mg/dL (65-110); Potassium 4.2 mmol/L (3.4-5.0); Sodium 139 mmol/L (137-145)
[2023-04-06 11:27] LABS: Alanine Aminotransferase 20 U/L (6-35); Albumin Level 4.5 g/dL (3.5-5.1); Alkaline Phosphatase 60 U/L (38-126)
[2023-04-06 11:44] LABS: Free T4 Free Thyroxine 1.25 ng/mL (0.78-2.19); Vitamin D 25 Hydroxy 67.7 ng/mL
[2023-04-06 11:57] LABS: Thyroid Stimulating Hormone 0.617 uIU/mL (0.465-4.680)
[2023-04-06 12:33] LABS: Folic Acid 4.9 ng/mL (2.76->20)
[2023-04-10 04:39] LABS: Triiodothyronine T3 Free 2.9 pg/mL (2.3-4.2)
[2023-04-10 05:16] LABS: Thyroid Peroxidase Antibodies 8 IU/mL (<9)
== END 2023-04-06 10:52 | disposition home or self-care (01) ==
PROVIDERS: PCP Family Medicine; Visit Provider Internal Medicine Endocrinology, Diabetes & Metabolism
DX: E06.3 Autoimmune thyroiditis (principal); M85.80 Other specified disorders of bone density and structure, unspecified site
CPT/HCPCS: 36415; 80053; 82306; 82607; 82746; 84439; 84443; 84481; 86376

== ENCOUNTER 2023-09-16 12:37 | Outpatient (CLI) | payer MEDICARE, MEDICAID, SELFPAY ==
--- NOTE | ~2023-09-16 | CT_ITS ---
EXAMINATION: CT lung screening DATE: 09/16/2023 13:07 INDICATION: Personal history of nicotine dependence, current smoker with 40 pack year history TECHNIQUE: Computed tomography (CT) of the chest was performed without intravenous contrast. The dose -length product (DLP) was 59.29 mGy-cm. Automated exposure control and iterative reconstruction techn [employer] were employed. COMPARISON: 04/03/2023 FINDINGS: There is severe emphysema. Again noted is a stable 7 mm nodule of the right lower lobe. The re are also stable 4 mm nodules of the upper lobes. No new pulmonary nodule is identified. The lungs are free of acute opacities. No pleural effusion or pneumothorax. Calcified pulmonary nodules and steve cified right hilar lymph nodes are consistent with old granulomatous disease. No pathologically enlar ged thoracic lymph nodes are identified. The heart size is normal. There is mild thoracic spondylosis . IMPRESSION: 1. Lung-RADS category 2: Benign appearance or behavior. Continue annual screening with noncontrast lo w-dose chest CT in 12 months. Reviewed, dictated and finalized at location L. R TELEVISION CONSOLE MONITOR IMPRESSION: 1. Lung-RADS category 2: Benign appearance or behavior. Continue annual screeni ng with noncontrast low-dose chest CT in 12 months.
== END 2023-09-16 12:38 | disposition home or self-care (01) ==
PROVIDERS: PCP Family Medicine; Visit Provider Internal Medicine Critical Care Medicine
DX: Z12.2 Encounter for screening for malignant neoplasm of respiratory organs (principal); Z87.891 Personal history of nicotine dependence
CPT/HCPCS: 71271

== ENCOUNTER 2023-09-21 11:14 | Outpatient (CLI) | payer MEDICARE, MEDICAID, SELFPAY ==
[2023-09-21 12:00] LABS: Basophils Percent Auto 0.4 % (0.2-1.2); Eosinophils Absolute Auto 0.1 K/mm3 (0-0.3); Eosinophils Percent Auto 1.3 % (0-4.4); Hematocrit 42.5 % (37.0-47.0); Immature Granulocyte Absolute 0.02 K/mm3 (0.00-0.031); Immature Granulocyte Percent A 0.4 % (0-0.5); Lymphocytes Absolute Auto 2.26 K/mm3 (0.9-3.2); Lymphocytes Percent Auto 41.4 % (18.3-44.2); Mean Corpuscular HGB Conc 32.9 g/dl (32-36); Mean Corpuscular Hemoglobin 32.3 pg (26-34); Mean Corpuscular Volume 97.9 fl (80-100); Mean Platelet Volume 9.4 fl (7.4-10.4); Monocytes Absolute Auto 0.5 K/mm3 (0.1-0.6); Monocytes Percent Auto 8.8 % (2.6-8.5); Neutrophils Absolute Auto 2.6 K/mm3 (1.3-6.7); Neutrophils Percent Auto 47.7 % (45.5-73.1); Platelet Count Result 153 k/mm3 (150-375); Red Blood Count 4.34 M/mm3 (4.2-5.4); White Blood Count 5.5 K/mm3 (4.5-10.0)
[2023-09-21 12:12] LABS: Alanine Aminotransferase 13 U/L (6-35); Albumin Level 4.3 g/dL (3.5-5.1); Alkaline Phosphatase 50 U/L (38-126); Anion Gap 5 mmol/L (8-16); Aspartate Amino Transferase 21 U/L (14-36); Bilirubin,Total 0.7 mg/dL (0.2-1.3); Blood Urea Nitrogen 13 mg/dL (7-17); Calcium 9.1 mg/dL (8.4-10.2); Carbon Dioxide 30 mmol/L (22-30); Chloride 104 mmol/L (98-107); Cholesterol 188 mg/dL (0-200); Estimated Glomerular Filt Rate > 60; Glucose 90 mg/dL (65-110); HDL Direct 70 mg/dL; Potassium 3.9 mmol/L (3.4-5.0); Sodium 139 mmol/L (137-145); Triglycerides 77 mg/dL (<150)
[2023-09-21 12:23] LABS: LDL Cholesterol Direct 87 mg/dL
== END 2023-09-21 11:15 | disposition home or self-care (01) ==
PROVIDERS: PCP Family Medicine; Visit Provider Family Medicine
DX: E78.5 Hyperlipidemia, unspecified (principal); I10 Essential (primary) hypertension
CPT/HCPCS: 36415; 80053; 80061; 85025

== ENCOUNTER 2023-10-14 10:13 | Outpatient (CLI) | payer MEDICARE, MEDICAID, SELFPAY ==
--- NOTE | 2023-10-14 17:10 | WPDSIXMINUTE ---
Six Minute Walk Procedure Procedure Performed Pulmonary Stress Test (6 min walk) Six Minute Walk Six Minute Walk: This is a 6 minute walk test. The test was performed and interpreted in accordance with the 2014 ERS/ATS task force guidelines. Findings: The patient's resting room air oxygen saturation measured by pulse oximetry was 97% and heart rate was 77 bpm. Patient ambulated for 152 meters and oxygen saturation remained 95 to 98%. Heart rate at the end of the study was 81 bpm. The patient did not qualify for supplemental oxygen at rest or with ambulation. There are no prior studies for comparison.
--- NOTE | 2023-10-14 17:11 | WPDPFTINT ---
PFT Procedure Performed PFT Procedure Performed Spirometry with Pre/Post Bronchodilator Plethysmography (Lung Vol) Diffusing Cap (DLCO) Flow Vol Loop PFT Interpretation This is a pulmonary function test with pre and post-bronchodilator spirometry, plethysmography and diffusing capacity. The test was performed and results interpreted in accordance with the 2019 and 2005 ATS/ERS Task Force guidelines respectively using the Global Lung Function Initiative-2012 reference equations. Patient demonstrated good effort and cooperation. Reproducibility criteria were met. The quality of the pre bronchodilator spirometry maneuver was Grade A and post bronchodilator spirometry maneuver was Grade A. Findings: Spirometry:There is decreased maximal expiratory airflow at all lung volumes with concave expiratory flow tracing. The contour the inspiratory flow tracing is normal. The pre bronchodilator FVC is 1.70 L, 77% predicted. The pre bronchodilator FEV1 is 0.48 L, 27% predicted. The pre bronchodilator FEV1: FVC ratio is 28%. The post bronchodilator FVC is 1.81 L, representing a 7% increase. The post bronchodilator FEV1 is 0.53 L, representing a 10% increase. The post bronchodilator FEV1: FVC ratio is 29%. Plethysmography: The total lung capacity of 5.58 L, 143% predicted. The functional residual capacity is 4.55 L, 198% predicted. The residual volume is 3.88 L, 222% predicted. The residual volume: Total lung capacity ratio is 70%. Diffusing capacity: The diffusing capacity unadjusted for hemoglobin and carboxyhemoglobin is 4.8, 25% predicted. The diffusing capacity adjusted for alveolar volume is 1.78, 39% predicted. Impression: There is a very severe obstructive abnormality. There is no significant improvement after inhaling a single dose of albuterol. The increase in residual volume to total lung volume ratio is consistent with hyperinflation from an obstructive abnormality. The diffusing capacity unadjusted for hemoglobin and carboxyhemoglobin is Severely decreased and remains severely decreased when adjusted for alveolar volume. There are no prior studies for comparison
== END 2023-10-14 10:14 | disposition home or self-care (01) ==
LOC: ANHPFT 10:15
PROVIDERS: PCP Family Medicine; Visit Provider Nurse Practitioner Family
DX: R06.09 Other forms of dyspnea (principal); J44.9 Chronic obstructive pulmonary disease, unspecified; R94.2 Abnormal results of pulmonary function studies
CPT/HCPCS: 94060; 94618; 94726; 94729

== ENCOUNTER 2024-03-19 11:13 | Outpatient (CLI) | payer MEDICARE, MEDICAID, SELFPAY ==
[2024-03-19 12:16] LABS: Alanine Aminotransferase 13 U/L (6-35); Albumin Level 4.5 g/dL (3.5-5.1); Alkaline Phosphatase 49 U/L (38-126); Anion Gap 7 mmol/L (4-12); Aspartate Amino Transferase 20 U/L (14-36); Bilirubin,Total 0.7 mg/dL (0.2-1.3); Blood Urea Nitrogen 12 mg/dL (7-17); Carbon Dioxide 31 mmol/L (22-30); Chloride 101 mmol/L (98-107); Estimated Glomerular Filt Rate > 60; Glucose 92 mg/dL (65-110); Potassium 3.7 mmol/L (3.4-5.0); Sodium 139 mmol/L (137-145)
[2024-03-19 12:56] LABS: Thyroid Stimulating Hormone 0.421 uIU/mL (0.465-4.680); Total Triiodothyronine (T3) 1.15 NG/ML (0.97-1.69)
[2024-03-19 13:32] LABS: Folic Acid 5.6 ng/mL (2.76->20)
[2024-03-19 14:44] LABS: Basophils Percent Auto 0.4 % (0.2-1.2); Eosinophils Absolute Auto 0.1 K/mm3 (0-0.3); Hematocrit 42.4 % (37.0-47.0); Immature Granulocyte Absolute 0.03 K/mm3 (0.00-0.031); Immature Granulocyte Percent A 0.4 % (0-0.5); Lymphocytes Percent Auto 20.5 % (18.3-44.2); Mean Platelet Volume 9.4 fl (7.4-10.4); Monocytes Absolute Auto 0.7 K/mm3 (0.1-0.6); Monocytes Percent Auto 7.8 % (2.6-8.5); Neutrophils Absolute Auto 5.8 K/mm3 (1.3-6.7); Neutrophils Percent Auto 69.9 % (45.5-73.1); Platelet Count Result 160 k/mm3 (150-375); Red Blood Count 4.24 M/mm3 (4.2-5.4); Red Cell Distribution Width 12.6 % (11.5-14.5); White Blood Count 8.3 K/mm3 (4.5-10.0)
[2024-03-19 15:38] LABS: Free T4 Free Thyroxine 1.46 ng/mL (0.78-2.19); Vitamin D 25 Hydroxy 36.9 ng/mL
[2024-03-23 10:34] LABS: Vitamin B1 9 nmol/L (8-30)
[2024-03-23 12:03] LABS: Vitamin B6 5.8 ng/mL (2.1-21.7)
[2024-03-24 19:59] LABS: Alpha-Tocopherol 9.3 mg/L (5.7-19.9); Beta-Gamma Tocopherol 1.9 mg/L (<4.4)
[2024-03-26 16:44] LABS: Vitamin B2 <5.0 nmol/L (6.2-39.0)
== END 2024-03-19 11:14 | disposition home or self-care (01) ==
PROVIDERS: PCP Family Medicine; Visit Provider Family Medicine
DX: F41.1 Generalized anxiety disorder (principal); E78.5 Hyperlipidemia, unspecified; K21.9 Gastro-esophageal reflux disease without esophagitis; D64.9 Anemia, unspecified; E55.9 Vitamin D deficiency, unspecified; R53.83 Other fatigue
CPT/HCPCS: 36415; 80053; 82306; 82607; 82746; 84207; 84252; 84425; 84439; 84443; 84446; 84480; 85025

== ENCOUNTER 2024-06-17 11:05 | Outpatient (CLI) | payer MEDICARE, SELFPAY ==
[2024-06-17 11:39] LABS: Basophils Percent Auto 0.5 % (0.2-1.2); Eosinophils Absolute Auto 0.1 K/mm3 (0-0.3); Eosinophils Percent Auto 1.1 % (0-4.4); Hematocrit 42.8 % (37.0-47.0); Hemoglobin 14.1 g/dL (12.0-15.0); Immature Granulocyte Absolute 0.01 K/mm3 (0.00-0.031); Immature Granulocyte Percent A 0.2 % (0-0.5); Lymphocytes Absolute Auto 1.72 K/mm3 (0.9-3.2); Mean Corpuscular HGB Conc 32.9 g/dl (32-36); Mean Corpuscular Hemoglobin 32.6 pg (26-34); Mean Corpuscular Volume 98.8 fl (80-100); Mean Platelet Volume 9.3 fl (7.4-10.4); Monocytes Absolute Auto 0.6 K/mm3 (0.1-0.6); Monocytes Percent Auto 9.1 % (2.6-8.5); Neutrophils Absolute Auto 3.8 K/mm3 (1.3-6.7); Neutrophils Percent Auto 61.1 % (45.5-73.1); Platelet Count Result 163 k/mm3 (150-375); Red Blood Count 4.33 M/mm3 (4.2-5.4); Red Cell Distribution Width 12.4 % (11.5-14.5); White Blood Count 6.1 K/mm3 (4.5-10.0)
[2024-06-17 11:50] LABS: Anion Gap 11 mmol/L (4-12); Blood Urea Nitrogen 14 mg/dL (7-17); Calcium 9.9 mg/dL (8.4-10.2); Carbon Dioxide 30 mmol/L (22-30); Chloride 101 mmol/L (98-107); Estimated Glomerular Filt Rate > 60; Glucose 93 mg/dL (65-110); Potassium 3.6 mmol/L (3.4-5.0); Sodium 142 mmol/L (137-145)
[2024-06-17 12:36] LABS: Vitamin D 25 Hydroxy 33.8 ng/mL
[2024-06-17 13:04] LABS: Folic Acid > 20.0 ng/mL (2.76->20)
[2024-06-19 22:18] LABS: Vitamin B6 27.8 ng/mL (2.1-21.7)
[2024-06-20 14:48] LABS: Vitamin B2 20.7 nmol/L (6.2-39.0)
[2024-06-20 15:08] LABS: Alpha-Tocopherol 9.7 mg/L (5.7-19.9); Beta-Gamma Tocopherol 2.5 mg/L (<4.4)
[2024-06-21 12:08] LABS: Vitamin B1 50 nmol/L (8-30)
== END 2024-06-17 11:06 | disposition home or self-care (01) ==
LOC: ANHLAB 11:07
PROVIDERS: PCP Family Medicine; Visit Provider Family Medicine
DX: D64.9 Anemia, unspecified (principal); E53.9 Vitamin B deficiency, unspecified; E55.9 Vitamin D deficiency, unspecified; J44.9 Chronic obstructive pulmonary disease, unspecified
CPT/HCPCS: 36415; 80048; 82306; 82607; 82746; 84207; 84252; 84425; 84446; 85025

== ENCOUNTER 2024-07-01 12:11 | Outpatient (CLI) | payer MEDICARE, SELFPAY ==
[2024-07-01 13:29] LABS: Free T4 Free Thyroxine 1.26 ng/mL (0.78-2.19)
[2024-07-01 13:44] LABS: Thyroid Stimulating Hormone 0.574 uIU/mL (0.465-4.680); Total Triiodothyronine (T3) 1.24 NG/ML (0.97-1.69)
== END 2024-07-01 12:12 | disposition home or self-care (01) ==
LOC: ANHLAB 12:13
PROVIDERS: PCP Family Medicine; Visit Provider Family Medicine
DX: E03.9 Hypothyroidism, unspecified (principal)
CPT/HCPCS: 36415; 84439; 84443; 84480

== ENCOUNTER 2024-09-18 11:02 | Outpatient (CLI) | payer MEDICARE, SELFPAY ==
--- NOTE | ~2024-09-18 | CT_ITS ---
EXAMINATION:CT lung screening DATE: 09/18/2024 11:26 INDICATION: Tobacco use. Current smoker with 40 pack year history. TECHNIQUE: Computed tomography (CT) of the chest was performed without intravenous contrast. Automate d exposure control and iterative reconstruction technique were employed. The dose-length product (DLP ) was 61.00 mGy-cm. COMPARISON: Chest CT 09/16/2023 FINDINGS: There is severe emphysema. There is mild atelectasis bilaterally. Calcified bilateral lung nodules and calcified right hilar lymph nodes are consistent with old granulomatous disease. There is mild scarring at right lung apex. No pleural effusion. The heart size is normal. No pericardial effu elijah. There is severe cervical spondylosis and moderate thoracic spondylosis. IMPRESSION: 1. Lung-RADS category 2: Benign appearance or behavior. Continue annual screening with noncontrast lo w-dose chest CT in 12 months. Reviewed, dictated and finalized at location A. CTOR OF COLLECTIONS AND ARCHIVES IMPRESSION: 1. Lung-RADS category 2: Benign appearance or behavior. Continue annual screeni ng with noncontrast low-dose chest CT in 12 months.
--- OUTSIDE RECORDS SUMMARY | 2024-09-18 11:46 | XMS_ITS | Data Portability ---
Author Organization [facility] Address [address] [place] [address] Assessment No assessment recorded. Plan of Treatment Reminders Order Date Submit Date Provider Last Modified By Organization Details Last Modified Time Details Appointments None recorded. Lab pap, IG + HPV, cervical 2015 016 [facility], [address], [address], [place], [address], 6 14:32:22 pap, IG + HPV, cervical 2016 017 [facility], [address], [address], [place], [address], 7 11:36:11 bacterial vaginosis + vaginitis panel, vaginal 2016 017 [facility], [address], [address], [place], [address], 7 06:05:00 HSV (1+2) DNA, qual, PCR, unspecifi ed specimen 2016 017 [facility], [address], [address], [place], [address], 7 06:05:01 culture, vaginal/r ectal, streptoco ccus group B 2016 017 [facility], [address], [address], [place], [address], 7 06:05:01 RPR (rapid plasma reagin), serum 2016 017 [facility], [address], [address], [place], [address], 7 08:31:37 hsv-2 (herpes simplex virus type 2) igg Ab, serum 2016 017 [facility], [address], [address], [place], [address], 7 08:31:38 hepatitis panel (A+B+C), acute, serum 2016 017 [facility], [address], [address], [place], [address], 7 08:31:36 hepatitis B surface Ab, qualitati ve, serum 2016 017 [facility], [address], [address], [place], [address], 7 08:31:36 HIV 1+2 AB + HIV 1 p24 Ag, qualitati ve immunoass ay, serum 2016 017 [facility], [address], [address], [place], [address], 7 08:31:37 urinalysi s, dipstick 2020 mao In-Office Order, Internal Use Only DO Not Attach Compendium DO Not Attach Compendium, Do Not Delete/merge, [id number] 17:13:31 pap, IG + HPV, cervical - please use Z11.51 in addition to code above for HPV testing. 2020 [facility], [address], [place], [address], 1 08:19:09 noninvasi ve colorecta l cancer DNA + occult blood screening , stool 2020 021 [facility] (Cologuard Orders Only), [address], [address], [place], [address], 1 17:21:45 Referral None recorded. Procedures None recorded. Surgeries None recorded. Imaging mammogram , screening 2015 016 [facility] [address] [place], [address], 6 09:43:20 bone density, hip and spine 2015 016 [facility] ([facility]), [address] [place], [address], 6 09:43:20 MAMMO, screening , bilateral 2016 017 [facility], [address], [address], [place], [address], 7 09:27:21 MAMMO, screening , bilateral 2017 018 [facility], [address], [address], [place], [address], 8 18:37:18 MAMMO, screening , bilateral 2018 019 [facility], [address], [address], [place], [address], 0 20:21:56 MAMMO, screening , bilateral 2020 021 [facility], [address], [address], [place], [address], 16:26:02 Medication Orders calcium 600 mg (as carbonate )-vitamin D3 20 mcg (800 unit) tablet 2015 016 [email or web address] Not available 9 12:54:43 multivita min tablet 2015 016 [email or web address] Not available 9 12:57:43 Viibryd 20 mg tablet 2015 016 [email or web address] Not available 9 12:55:42 Viibryd 20 mg tablet 2015 016 [email or web address] Not available 9 12:55:42 Premarin 0.625 mg/gram vaginal cream 2016 017 [email or web address] Not available 9 12:55:36 calcium 600 mg (as carbonate )-vitamin D3 20 mcg (800 unit) tablet 2016 017 [email or web address] Not available 9 12:54:43 multivita min tablet 2016 017 [email or web address] Not available 9 12:57:43 bupropion HCl SR 150 mg tablet,12 hr sustained -release 2016 017 [facility] Not available 7 18:06:48 vitamin E (dl, acetate) 180 mg (400 unit) capsule 2017 018 [email or web address] Not available 9 12:55:49 evening primrose oil 500 mg capsule 2017 018 [email or web address] Not available 9 12:57:48 multivita min tablet 2020 [facility] Not available 17:13:36 Calcium with Vitamin D 600 mg-10 mcg (400 unit) tablet 2020 [facility] Not available 17:13:34 Patient TargetsNo targets recorded. Patient Instructions Encounter Date Encounter Id Patient Instructions Last Modified By Organization Details Last Modified Time 09/14/2015 [id number] learning about breast cancer screening mwasserman Not available 09/14/2015 17:33:47 learning about mood disorders [email or web address] Not available 09/15/2015 09:27:09 10/09/2016 [id number] influenza (flu) vaccine: care instructions Not available 10/09/2016 16:36:17 mammogram: about this test mwasserman Not available 10/09/2016 17:33:40 atrophic vaginitis: care instructions Not available 10/09/2016 16:36:17 learning about mood disorders Not available 10/09/2016 16:36:17 01/09/2018 [id number] mammogram: about this test mwasserman Not available 01/09/2018 12:12:02 fibrocystic breast changes: care instructions mwasserman Not available 01/09/2018 10:41:54 06/11/2019 [id number] mammogram: about this test mwasserman Not available 06/11/2019 14:17:25 fibrocystic breast changes: care instructions mwasserman Not available 06/11/2019 14:25:46 learning about mood disorders mwasserman Not available 06/11/2019 14:25:46 06/05/2021 [id number] mammogram: about this test mwasserman Not available 06/05/2021 17:13:31 fibrocystic breast changes: care instructions mwasserman Not available 06/05/2021 17:13:31 learning about mood disorders mwasserman Not available 06/05/2021 17:13:31 Reason for Referral None Reported. Results Created Date Observation Date Name Description Value Unit Range Abnormal Flag Note LastModifiedBy Organization Detail LastModifiedTime 06/05/20 21 06/05/2021 urina lysis , dipst ick Leukocytes Negati ve Not Available In-Office Order Internal Use Only DO Not Attach Compendium DO Not Attach Compendium, Do Not Delete/merge, [id number] 06/05/2021 16:37:17 06/05/2006/05/2021 urina lysis , dipst ick Nitrite negati ve Not Available In-Office Order Internal Use Only DO Not Attach Compendium DO Not Attach Compendium, Do Not Delete/merge, [id number] 06/05/2021 16:37:17 06/05/2006/05/2021 urina lysis , dipst ick Urobilinogen 2 Not Available In-Of fice Order Internal Use Only DO Not Attach Compendium DO Not Attach Compendium, Do Not Delete/merge, [id number] 06/05/2021 16:37:17 06/05/20 21 06/05/2021 urina lysis , dipst ick Protein Negati ve Not Available In-Office Order Internal Use Only DO Not Attach Compendium DO Not Attach Compendium, Do Not Delete/merge, [id number] 06/05/2021 16:37:17 06/05/20 21 06/05/2021 urina lysis , dipst ick pH 6.5 Not Available In-Office Order Internal Use Only DO Not Attach Compendium DO Not Attach Compendium, Do Not Delete/merge, [id number] 06/05/2021 16:37:17 06/05/20 21 06/05/2021 urina lysis , dipst ick Blood Non-He molyze d: Trace Not Available In-Office Order Internal Use Only DO Not Attach Compendium DO Not Attach Compendium, Do Not Delete/merge, [id number] 06/05/2021 16:37:17 06/05/20 21 06/05/2021 urina lysis , dipst ick Specific Corea 1.025 Not Available In-Off ice Order Internal Use Only DO Not Attach Compendium DO Not Attach Compendium, Do Not Delete/merge, [id number] 06/05/2021 16:37:17 06/05/20 21 06/05/2021 urina lysis , dipst ick Ketone Negati ve Not Available In-Office Order Internal Use Only DO Not Attach Compendium DO Not Attach Compendium, Do Not Delete/merge, [id number] 06/05/2021 16:37:17 06/05/20 21 06/05/2021 urina lysis , dipst ick Bilirubin Negati ve Not Available In-Office Order Internal Use Only DO Not Attach Compendium DO Not Attach Compendium, Do Not Delete/merge, [id number] 06/05/2021 16:37:17 06/05/20 21 06/05/2021 urina lysis , dipst ick Glucose Negati ve Not Available In-Office Order Internal Use Only DO Not Attach Compendium DO Not Attach Compendium, Do Not Delete/merge, [id number] 06/05/2021 16:37:17 09/14/19 16 09/16/2015 pap, IG + HPV, cervi tara diagnosis: RONI FOURNIER FOR INTRA EPITH ELIAL LESIO N AND AXEL QUINN . Not Available [facility] [address] [facility], [place], [address], 09/19/2015 14:32:22 09/14/19 16 09/16/2015 pap, IG + HPV, cervi tara specimen adequacy: RONI Gillis SATIS FACTO RY FOR EVALU ATION . Not Available [facility] [address] [facility], [place], [address], 09/19/2015 14:32:22 09/14/19 16 09/16/2015 pap, IG + HPV, cervi tara clinician provided ICD10: RONI Gillis Z01.4 19 Not Available [facility] [address] [facility], [place], [address], 09/19/2015 14:32:22 09/14/19 16 09/16/2015 pap, IG + HPV, cervi tara performed by: MAYRA BLUM (ASCP ) Not Available [facility] [address] [facility], [place], [address], 09/19/2015 14:32:22 09/14/19 16 09/16/2015 pap, IG + HPV, cervi tara . . Not Available [facility] [address] [facility], [place], [address], 09/19/2015 14:32:22 09/14/19 16 09/16/2015 pap, IG + HPV, cervi tara note: RONI Gillis THE PAP SMEAR IS A SCREE MANASA TEST DESFIGUEROA SHERINE TO AID IN THE DETEC TION OF BIJU LIGNA NT AND MALFIGUEROA MARTINEZT CONDI TIONS OF THE UTERI NE CERVI X. IT IS NOT A DIAGN OSTIC PROCE DURE AND SHOUL D NOT BE USED THE SOLE MEANS OF DETEC TING CERVI TARA CANCE R. BOTH FALSE -POSI TIVE AND FALSE -NEGA TIVE REPOR TS DO OCCUR . Not Available [facility] [address] [place], [address], 09/19/2015 14:32:22 09/14/19 16 09/16/2015 pap, IG + HPV, cervi tara test methodology: COMMEN T THIS LIQUI D BASED THINP REP(R ) PAP TEST WAS SCREE SHERINE WITH THE USE OF AN IMAGE GUIDE Malaika Lindsay. Not Available [facility] [address] [place], [address], 09/19/2015 14:32:22 09/14/19 16 09/19/2015 pap, IG + HPV, cervi tara HPV aptima NEGATI VE negati ve THIS TEST DETEC TS FOURT EEN HIGH- RISK HPV TYPES (16/1 8/31/ 33/35 /39/4 5/ 51/52 /56/5 8/59/ 66/68 ) WITHO UT DIFFE RENTI ATION . Not Available [facility] [address] [place], [address], 09/19/2015 14:32:22 10/09/19 17 10/11/2016 pap, IG + HPV, cervi tara diagnosis: COMMEN T NEGAT SHANTANU FOR INTRA EPITH ELIAL CLAYTON Rosario AND AXEL QUINN . Not Available [facility] [address] [place], [address], 10/11/2016 11:36:11 10/09/19 17 10/11/2016 pap, IG + HPV, cervi tara specimen adequacy: COMMEN T SATIS FACTO RY FOR EVALU ATION . ENDOC ERVIC AL AND/O R SQUAM OUS METAP LASTI C CELLS (ENDO CERVI TARA COMPO NENT) ARE PRESE NT. Not Available [facility] [address] [facility], [place], [address], 10/11/2016 11:36:11 10/09/19 17 10/11/2016 pap, IG + HPV, cervi tara clinician provided ICD10: RONI Gillis Z01.4 19 Not Available [facility] [address] [place], [address], 10/11/2016 11:36:11 10/09/19 17 10/11/2016 pap, IG + HPV, cervi tara performed by: RONI MANUEL, CYTOT NICOLAS Gillis (ASCP ) Not Available [facility] [address] [place], [address], 10/11/2016 11:36:11 10/09/19 17 10/11/2016 pap, IG + HPV, cervi tara . . Not Available [facility] [address] [place], [address], 10/11/2016 11:36:11 10/09/19 17 10/11/2016 pap, IG + HPV, cervi tara note: RONI Gillis THE PAP SMEAR IS A SCREE MANASA TEST DESIG SHERINE TO AID IN THE DETEC TION OF BIJU LIGNA NT AND MALIG NANT CONDI TIONS OF THE UTERI NE CERVI X. IT IS NOT A DIAGN OSTIC PROCE DURE AND SHOUL D NOT BE USED THE SOLE MEANS OF DETEC TING CERVI TARA CANCE R. BOTH FALSE -POSI TIVE AND FALSE -NEGA TIVE REPOR TS DO OCCUR . Not Available [facility] [address] [facility], [place], [address], 10/11/2016 11:36:11 10/09/19 17 10/11/2016 pap, IG + HPV, cervi tara test methodology: RONI Gillis THIS LIQUI D BASED THINP REP(R ) PAP TEST WAS SCREE SHERINE WITH THE USE OF AN IMAGE GUIDE Malaika SYSTMena M. Not Available [facility] [address] [place], [address], 10/11/2016 11:36:11 10/09/19 17 10/11/2016 pap, IG + HPV, cervi tara HPV aptima NEGATI VE negati ve THIS TEST DETEC TS FOURT EEN HIGH- RISK HPV TYPES (16/1 8/31/ 33/35 /39/4 5/ 51/52 /56/5 8/59/ 66/68 ) WITHO UT WOJCIECHE RUFINA JIMENEZ . Not Available [facility] [address] [facility], [place], [address], 10/11/2016 11:36:11 10/09/19 17 10/12/2016 bacte rial vagin osis + vagin itis panel , vagin al juana albicans, ALBER NEGATI VE negati ve Not Available [facility] [address] [place], [address], 10/14/2016 06:05:00 10/09/19 17 10/12/2016 bacte rial vagin osis + vagin itis panel , vagin al juana glabrata, ALBER NEGATI VE negati ve THIS TEST WAS DEVEL OPED AND ITS PERFO RMANC E ERLINDA CTERI STICS DETER MINED BY [facility]. IT HAS NOT BEEN CLEAR ED OR APPRO DANIS BY THE FOOD AND DRUG ADMIN ISTRA TION. THE FDA HAS DETER MINED THAT SUCH CLEAR ANCE OR APPRO BENJAMIN IS NOT NECES DANIEL. Not Available [facility] [address] [facility], [place], [address], 10/14/2016 06:05:00 10/09/19 17 10/12/2016 bacte rial vagin osis + vagin itis panel , vagin al trich vag by ALBER NEGATI VE negati ve Not Available [facility] [address] [place], [address], 10/14/2016 06:05:00 10/09/19 17 10/12/2016 bacte rial vagin osis + vagin itis panel , vagin al chlamydia trachomatis, ALBER NEGATI VE negati ve Not Available [facility] [address] [place], [address], 10/14/2016 06:05:00 10/09/19 17 10/12/2016 bacte rial vagin osis + vagin itis panel , vagin al neisseria gonorrhoeae, ALBER NEGATI VE negati ve Not Available [facility] [address] [place], [address], 10/14/2016 06:05:00 10/09/19 17 10/13/2016 bacte rial vagin osis + vagin itis panel , vagin al atopobium vaginae HIGH - 2 score abnormal Not Available [facility] [address] [place], [address], 10/14/2016 06:05:00 10/09/19 17 10/13/2016 bacte rial vagin osis + vagin itis panel , vagin al bvab 2 HIGH - 2 score abnormal Not Available [facility] [address] [place] [address], [address], 10/14/2016 06:05:00 10/09/19 17 10/13/2016 bacte rial vagin osis + vagin itis panel , vagin al megasphaera 1 HIGH - 2 score abnormal CALCU LATE TOTAL SCORE BY CIRAIN G THE 3 INDIV IDUAL BACTE RIAL VAGIN OSIS (BV) MARKE R SCORE S TOGET HER. TOTAL SCORE IS INTER PRETE D FOLLO WS: TOTAL SCORE 0-1: INDIC ATES THE ABSEN CE OF BV. TOTAL SCORE 2: INDET ERMIN ATE FOR BV. ADDIT IONAL CLINI TARA DATA SHOUL D BE EVALU ATED TO ESTAB ANA A DIAGN OSIS. TOTAL SCORE 3-6: INDIC ATES THE PRESE NCE OF BV. THIS TEST WAS DEVEL OPED AND ITS PERFO RMANC E ERLINDA CTERI STICS DETER MINED BY [facility]. IT HAS NOT BEEN CLEAR ED OR APPRO DANIS BY THE FOOD AND DRUG ADMIN ISTRA TION. THE FDA HAS DETER MINED THAT SUCH CLEAR ANCE OR APPRO BENJAMIN IS NOT MATT SANCHEZ. Not Available [facility] [address] [facility], [place], [address], 10/14/2016 06:05:00 10/09/19 17 10/13/2016 HSV (1+2) DNA, qual, PCR, unspe cifie d speci men hsv 1 ALBER NEGATI VE negati ve Not Available [facility] [address] [place], [address], 10/14/2016 06:05:01 10/09/19 17 10/13/2016 HSV (1+2) DNA, qual, PCR, unspe cifie d speci men hsv 2 ALBER NEGATI VE negati ve Not Available [facility] [address] [facility], [place], [address], 10/14/2016 06:05:01 10/09/19 17 10/11/2016 cultu re, vagin al/re ctal, strep tococ cus group B strep gp B ALBER NEGATI VE negati ve [facility] FOR DISEA SE CONTR OL AND PREVE NTION (CDC) AND AMERI CAN CONGR ESS OF OBSTE TRICI ANS AND GYNEC OLOGI STS (ACOG ) GUIDE LINES FOR PREVE NTION OF PERIN ATAL GROUP B STREP TOCOC TARA (GBS) DISEA SE SPECI FY CO-CO LLECT ION OF A VAGIN AL AND RECTA L SWAB SPECI MEN TO MAXIM IZE SENSI TIVIT Y OF GBS DETEC TION. PER THE CDC AND ACOG, SWABB ING BOTH THE LOWER VAGIN A AND RECTU M SUBST ANTIA LLY INCRE ASES THE YIELD OF DETEC TION NASEEM RED WITH SAMPL ING THE VAGIN A ALONE . PENIC ILLIN G, AMPIC ILLIN , OR CEFAZ LATONYA ARE INDIC ATED FOR INTRA PARTU M PROPH YLAXI S OF PERIN ATAL GBS COLON IZATI ON. REFLE X SUSCE PTIBI LITY TESTI PATRICIA SHOUL D BE PERFO RMED PRIOR TO USE OF CLIND AMYCI N ONLY ON GBS ISOLA JEANIE FROM PENIC ILLIN -VAISHNAVI RGIC WOMEN WHO ARE CONSI DERED A HIGH RISK FOR ANAPH YLAXI S. TREAT MENT WITH VANCO MYCIN WITHO UT ADDIT IONAL TESTI PATRICIA IS WARRA NTED IF RESIS TANCE TO CLIND AMYCI N IS NOTED . Not Available [facility] [address] [place], [address], 10/14/2016 06:05:01 10/17/19 17 10/17/2016 hepat itis panel (A+B+ C), acute , serum hep A Ab, IgM NEGATI VE negati ve Not Available [facility] [address] [place], [address], 10/17/2016 08:31:36 10/17/19 17 10/17/2016 hepat itis panel (A+B+ C), acute , serum HBsAg screen NEGATI VE negati ve Not Available [facility] [address] [place], [address], 10/17/2016 08:31:36 10/17/19 17 10/17/2016 hepat itis panel (A+B+ C), acute , serum hep B core Ab, IgM NEGATI VE negati ve Not Available [facility] [address] [place], [address], 10/17/2016 08:31:36 10/17/1910/17/2016 hepat itis panel (A+B+ C), acute , serum hep C virus Ab <0.1 S/co_ ratio 0.0-0. 9 NEGAT SHANTANU: < 0.8 INDET ERMIN ATE: 0.8 - 0.9 POSIT SHANTANU: > 0.9 THE CDC RECOM MENDS THAT A POSIT SHANTANU HCV ANTIB ELÍAS RESUL T BE FOLLO WED UP WITH A HCV NUCLE IC ACID AMPLI FICAT ION TEST (5507 [id number]). Not Available [facility] [address] [facility], [place], [address], 10/17/2016 08:31:36 10/17/19 17 10/17/2016 hepat itis B surfa ce Ab, quali tativ e, serum hep B surface Ab, qual REACTI VE NON REACT SHANTANU: INCON SISTE NT WITH IMMUN ITY, LESS THAN 10 MIU/M L REACT SHANTANU: CONSI STENT WITH IMMUN ITY, GREAT ER THAN 9.9 MIU/M L Not Available [facility] [address] [place], [address], 10/17/2016 08:31:36 10/17/1910/17/2016 RPR (rapi d plasm a reagi n), serum RPR NON REACTI VE non reacti ve Not Available [facility] [address] [place], [address], 10/17/2016 08:31:37 10/17/1910/17/2016 HIV 1+2 AB + HIV 1 p24 Ag, quali tativ e immun oassa y, serum HIV screen 4TH generation wrfx NON REACTI VE non reacti ve Not Available [facility] [address] [place], [address], 10/17/2016 08:31:37 10/17/1910/17/2016 hsv-2 (herp es simpl ex virus type 2) igg Ab, serum hsv 2 IgG, type spec 12.50 index 0.00-0 .90 above high normal NEGAT SHANTANU <0.91 EQUIV OCAL 0.91 - 1.09 POSIT SHANTANU >1.09 NOTE: NEGAT SHANTANU INDIC ATES NO ANTIB ODIES DETEC EMMETT TO HSV-2 . EQUIV OCAL MAY SUGGE ST EARLY INFEC TION. IF CLINI NICOLA APPRO PRIAT E, RETES T AT LATER DATE. POSIT SHANTANU INDIC ATES ANTIB ODIES DETEC EMMETT TO HSV-2 . Not Available [facility] [address] [facility], [place], [address], 10/17/2016 08:31:38 06/06/20 21 06/09/2021 IGP, APTIM A HPV diagnosis: Commflory t NEGAT SHANTANU FOR INTRA EPITH ELIAL LESIO N OR AXEL QUINN . CELLU JENNY RICKETTS ES ASSOC IATED WITH ATROP HY ARE PRESE NT. Not Available [facility] [address] [facility], [place], [address], 06/09/2021 08:19:09 06/06/20 21 06/09/2021 IGP, APTIM A HPV specimen adequacy: Commen t Satis facto ry for evalu ation . Endoc ervic al compo nent may not be disti nguis hed in cases of atrop hy. Not Available [facility] [address] [place], [address], 06/09/2021 08:19:09 06/06/20 21 06/09/2021 IGP, APTIM A HPV clinician provided ICD10: Roni gillis Z01.4 19 Not Available [facility] [address] [place], [address], 06/09/2021 08:19:09 06/06/20 21 06/09/2021 IGP, APTIM A HPV performed by: Roni t Joseph caro Cytocarlin gillis (ASCP ) Not Available [facility] [address] [place], [address], 06/09/2021 08:19:09 06/06/20 21 06/09/2021 IGP, APTIM A HPV . . Not Available [facility] [address] [place], [address], 06/09/2021 08:19:09 06/06/20 21 06/09/2021 IGP, APTIM A HPV note: Roni t The Pap smear is a scree manasa test desig sherine to aid in the detec tion of biju ligna nt and malig nant condi tions of the uteri ne cervi x. It is not a diagn ostic proce dure and shoul d not be used as the sole means of detec ting cervi tara cance r. Both false -posi tive and false -nega tive repor ts do occur . Not Available [facility] [address] [facility], [place], [address], 06/09/2021 08:19:09 06/06/20 21 06/09/2021 IGP, APTIM A HPV test methodology: Commen t This liqui d based ThinP rep(R ) pap test was scree sherine with the use of an image guide d syste m. Not Available [facility] [address] [facility], [place], [address], 06/09/2021 08:19:09 06/06/20 21 06/09/2021 IGP, APTIM A HPV HPV aptima Negati ve negati ve This nucle ic acid ampli ficat ion test detec ts fourt een high- risk HPV types (16,1 8,31, 33,35 ,39,4 5,51, 52,56 ,58,5 9,66, 68) witho ut diffe renti ation . Not Available [facility] [address] [facility], [place], [address], 06/09/2021 08:19:09 06/30/2006/30/2021 COLOG UARD cologuard result reportable Negati ve negati ve NEGAT SHANTANU TEST RESUL T. A negat shantanu Colog uard resul t indic ates a low likel ihood that a color ectal cance r (CRC) or advan dhiraj adeno ma (irina omato us polyp s with more advan dhiraj pre-m align ant featu res) is prese nt. The chanc e that a perso n with a negat shantanu Colog uard test has a color ectal cance r is less than 1 in 1500 (nega tive predi ctive value >99.9 %) or has an advan dhiraj adeno ma is less than 5.3% (nega tive predi ctive value 94.7% ). These data are based on a prosp ectiv e cross -sect ional study of 10,00 0 indiv idual s at [facility] risk for color ectal cance r who were scree sherine with both Colog uard and colon oscop y. (Luis E Wright et al, N Engl J Med 2014; 370(1 4):12 86-12 97) The johan l value (refe rence range ) for this assay is negat shantanu. COLOG UARD RE-SC REEMELE POOL RECOM MENDA TION: Perio dic color ectal cance r scree manasa is an impor tant part of preve ntive healt hcare for asymp tomat ic indiv idual s at [place] [facility] risk for color ectal cance r. Follo wing a negat shantanu Colog uard resul t, the Ameri can Cance r Socie ty and U.S. Multi -Soci ety Task Force scree manasa guide lines recom mend a Colog uard re-sc carol pool inter benjamin of 3 years . Refer ences : Ameri can Cance r Socie ty Guide line for Color ectal Cance r Scree manasa: https ://ww w.can cer.o rg/ca ncer/ colon -rect al-ca ncer/ detec tion- diagn osis- stagi ng/ac s-rec ommen datio ns.ht ml.; Jose Guadalupe DK, Grayson almanza CR, Sharmaine JoeK, Color ectal Cance r Scree manasa: Recom menda tions for Physi cians and Patie nts from the U.S. Multi -Soci ety Task Force on Color ectal Cance r Scree manasa , Alcon delgado rolog y 2017; 112:1 016-1 030. TEST DESCR IPTIO N: [place] [facility] algor ithmi c lety sis of stool DNA-b iomar kers with hemog lobin immun oassa y. Quant itati ve value s of indiv idual bioma rkers are not repor table and are not assoc iated with indiv idual bioma rker resul t refer ence range s. Colog uard is inten ded for color ectal cance r scree manasa of adult s of eithe r sex, 45 years or older , who are at [facility] for color ectal cance r (CRC) . Colog uard has been appro danis for use by the U.[place]. FDA. The perfo rmanc e of Colog uard was estab lishe d in a cross secti onal study of [facility] adult s aged 50-84 . Colog uard perfo rmanc e in patie nts ages 45 to 49 years was estim ated by kiya-g emerson lety sis of near- age group s. Colon oscop ies perfo rmed for a posit hsantanu resul t may find as the most clini nicola signi fican t lesio n: color ectal cance r [4.0% ], advan dhiraj adeno ma (incl uding sessi le pavithra emmett polyp s great er than or equal to 1cm diame ter) [20%] or non- advan dhiraj adeno ma [31%] ; or no color ectal neopl [place] [45%] . These estim ates are deriv ed from a prosp ectiv e cross -sect ional scree manasa study of 10,00 0 indiv idual s at [facility] risk for color ectal cance r who were scree sherine with both Colog uard and colon oscop y. (Luis E Wright et al, N Engl J Med 2014; 370(1 4):12 86-12 97.) Colog uard may produ ce a false negat shantanu or false posit shantanu resul t (no color ectal cance r or preca ncero us polyp prese nt at colon oscop y follo w up). A negat shantanu Colog uard test resul t does not guara ntee the absen ce of CRC or advan dhiraj adeno ma (pre- cance r). The curre nt Colog uard scree manasa inter benjamin is every 3 years . (Amer ican Cance r Socie ty and U.S. Multi -Soci ety Task Force ). Colog uard perfo rmanc e data in a 10,00 0 patie nt pivot al study using colon oscop y as the refer ence metho d can be acces sed at the follo wing locat ion: www.e xactl abs.c om/re crystal . Addit ional descr iptio n of the Colog uard test proce ss, warni ngs and preca ution s can be found at www.c lesviau ketan.c om. Not Available [employer] (Cologuard Orders Only) [address], [place], [address], 07/12/2021 17:21:43 09/20/19 16 09/19/2015 dexa PT NAME: SOUMYA MILLER : 1960 PT SEX/AG E: F/55 PT ACCT NUMBER : [id number] PT MR#: [id number] ROOM/B ED: PT STATUS : REG CLI DATE OF EXAMIN ATION: ORDERI PHYSIC JESSICA: MARLEE SANCHEZ MKendrick ATTEND ING PHYSIC JESSICA: MARLEE SANCHEZ , MEduD. DICTAT ING PHYSIC JESSICA: Carlin ECHEVARRIA M.D. 034 ====== ====== ====== ====== ====== ====== ====== ====== ====== ====== ===== Bone Densit y Report ====== ====== ====== ====== ====== ====== ====== ====== ====== ====== ===== Name: LISET MILLER t ID: [id number] Age: 55 Sex: Female Ethnic ity: White Date of : 1960 ------ ------ ------ ------ ------ ------ ------ ------ ------ ------ ----- Indica tion: josé caputo; height loss; Referr ing Provid er: QUETA TRUJILLO MARLEE [facility] Exam Date: 2015 Access ion number : [id number] [place] Bone Densit y: ------ ------ ------ ------ ------ ------ ------ ------ ------ ------ ----- Region BMD T-scor e Z-scor e Classi ficati on ------ ------ ------ ------ ------ ------ ------ ------ ------ ------ ----- AP Spine (L1-L4 ) 1.011 -0.3 0.9 Normal Femora l Neck (Left) 0.662 -1.7 -0.5 Osteop enia Total Hip (Left) 0.816 -1.0 -0.2 Normal Total Hip Bilate ral Avg 0.800 -1.2 -0.4 Osteop enia Femora l Neck (Right ) 0.652 -1.8 -0.6 Osteop enia Total Hip (Right ) 0.783 -1.3 -0.5 Osteop enia ------ ------ ------ ------ ------ ------ ------ ------ ------ ------ ----- World [facility] Organi zation criter ia for BMD impres elijah classi fy patien ts as: Normal (T-sco re at or above -1.0), Osteop enia (T-sco re betwee n -1.0 and -2.5), or Osteop orosis (T-sco re at or below -2.5). 10-yea r Fractu re Risk(1 ): ------ ------ ------ ------ ------ ------ ------ ------ ------ ------ ----- Major Osteop orotic Fractu re 7.0% Hip Fractu re 0.7% ------ ------ ------ ------ ------ ------ ------ ------ ------ ------ ----- Report ed Risk Factor s: US (Shantell slaughter), Neck BMD=0. 652, BMI=21 .0 (1) FRAX(R ) Gary n 3.08. Fractu re probab ility calcul ated for an untrea emmett patien t. Fractu re probab ility may be lower if the patien t has receiv ed treatm ent. Clinic al Inform ation Provid ed by Ninoska t: ------ ------ ------ ------ ------ ------ ------ ------ ------ ------ ----- Ninoska lindsay height was 62 Menopa use Age: 38 No regula r weight bearin g exerci se Onset of menses at age 11 Number of childr en 2 ------ ------ ------ ------ ------ ------ ------ ------ ------ ------ ----- Impres elijah: The ninoska gillis has low bone mass, based on the Right Femora l Neck T-scor e. The emen carlin has an estima emmett ten-ye ar risk of hip fractu re of 0.7% and an estima emmett ten-ye ar risk of major fractu re of 7%, based on the WHO FRAX algori thm. Discus elijah: BONE DENSIT Y IS LOW AT ONE OR MORE SKELET AL SITES. This ninoska gillis's lowest T-scor e is low at one or more skelet al sites. It meets the World Health Organi zation 's (WHO) criter ia for low bone mass (T-sco re betwee n -1.0 and -2.5). The patiflory t's 10-yea r risk of fractu re as calcul ated by FRAX is less than the thresh old where pharma cologi tara therap y is recomm ended by the Nation al Osteop orosis Founda tion (NOF). Malia r, all treatm ent decisi ons requir e clinic al judgme nt and consid eratio n of indivi dual patien t factor s, includ ing patien t prefer ences, comorb iditie s, previo us drug use, risk factor s not captur ed in the FRAX model (e.g., frailt y, falls, vitami n D defici ency, increa sed bone turnov er, interv al signif icant declin e in bone densit y) and possib le under or overes timati on of fractu re risk by FRAX. The patien t should follow a health ful lifest yle (good nutrit ion with adequa te calciu m and vitami n D, and approp riate weight -beari ng exerci se). Follow -Up: Consid er repeat ing this study in 2 to 3 years to reasse ss this patien t's status , or sooner if there is some new clinic al indica tion. Review ed, dictat ed and finali zed at Locati on A. SOM ECHEVARRIA M.D.__ ___ < > [facility] [address] [place], [place] [address] [phone] [facility] (Im[facility]) [address], [place], [address], 10/09/2016 14:51:54 09/20/19 16 09/20/2015 dexa PT NAME: PEDRO SanSOUMYA Verma Jacek : 1960 PT SEX/AG E: F/55 PT ACCT NUMBER : [id number] PT MR#: [id number] ROOM/B ED: PT STATUS : REG CLI DATE OF EXAMIN ATION: ORDERMathew POOL PHYSIC JESSICA: MARLEE BIRCH MAN MKendrick ATTEND ING PHYSIC JESSICA: MARLEE SANCHEZ , MHyun. DICTAT ING PHYSIC JESSICA: Carlin ECHEVARRIA M.D. 033 [id number] 8.001A OR 14:50: 00 41.007 2MAM ([facility]) : DIGITA L MAMM SCREEN -RACHEAL INDICA TION: Screen ing. TECHNI QUE: Screen ing digita l mammog yasemin submit emmett. CAD analys is submit emmett and interp reted. COMPAR KHUSHBU: No prior studie s for compar khushbu. FINDIN GS: Breast compos ed of scatte red areas of fibrog landul ar densit y. There are no masses or abnorm al calcif icatio ns to sugges t malign yulia. Regula r clinic al breast examin ation and annual mammog shelly are recomm ended. IMPRES ELIJAH: 1) NO MAMMOG RAPHIC EVIDEN CE OF MALIGN YULIA IN EITHER BREAST . RECOMM ENDATI ON: Routin e yearly screen ing mammog yasemin and regula r clinic al breast examin ation are recomm ended. BI-RAD S CATEGO RY 1 - NEGATI VE __ Review ed, dictat ed and finali zed at Locati on A. __ Electr onical ly signed by: SOM ECHEVARRIA Date: Time: 10:07 SOM ECHEVARRIA M.D.__ ___ [facility] [address] [place] [address] [facility] ([facility]) [address], [place], [address], 10/09/2016 14:51:54 09/26/19 16 09/19/2015 dexa PT NAME: SOUMYA MILLER : 1960 PT SEX/AG E: F/55 PT ACCT NUMBER : [id number] PT MR#: [id number] ROOM/B ED: PT STATUS : REG CLI DATE OF EXAMIN ATION: ORDERI PHYSIC JESSICA: MARLEE SANCHEZ Mary ATTEND ING PHYSIC JESSICA: MARLEE SANCHEZ , Mary DICTAT ING PHYSIC JESSICA: Carlin ECHEVARRIA M.D. 034 ====== ====== ====== ====== ====== ====== ====== ====== ====== ====== ===== Bone Densit y Report ====== ====== ====== ====== ====== ====== ====== ====== ====== ====== ===== Name: LISET MILLER carlin ID: [id number] Age: 55 Sex: Female Ethnic ity: White Date of : 1960 ------ ------ ------ ------ ------ ------ ------ ------ ------ ------ ----- Indica tion: josé caputo; height loss; Referr ethan Carr er: QUETA TRUJILLO MARLEE Study: Bone densit ometry was [facility] med. Exam Date: 2015 Access ion number : [id number] OR Bone Densit y: ------ ------ ------ ------ ------ ------ ------ ------ ------ ------ ----- Region BMD T-scor e Z-scor e Classi ficati on ------ ------ ------ ------ ------ ------ ------ ------ ------ ------ ----- AP Spine (L1-L4 ) 1.011 -0.3 0.9 Normal Femora l Neck (Left) 0.662 -1.7 -0.5 Osteop enia Total Hip (Left) 0.816 -1.0 -0.2 Normal Total Hip Bilate ral Avg 0.800 -1.2 -0.4 Osteop enia Femora l Neck (Right ) 0.652 -1.8 -0.6 Osteop enia Total Hip (Right ) 0.783 -1.3 -0.5 Osteop enia ------ ------ ------ ------ ------ ------ ------ ------ ------ ------ ----- World Health Organi zation criter ia for BMD impres elijah classi fy patien ts as: Normal (T-sco re at or above -1.0), Osteop enia (T-sco re betwee n -1.0 and -2.5), or Osteop orosis (T-sco re at or below -2.5). 10-yea r Fractu re Risk(1 ): ------ ------ ------ ------ ------ ------ ------ ------ ------ ------ ----- Major Osteop orotic Fractu re 7.0% Hip Fractu re 0.7% ------ ------ ------ ------ ------ ------ ------ ------ ------ ------ ----- Report ed Risk Factor s: US (Shantell slaughter), Neck BMD=0. 652, BMI=21 .0 (1) FRAX(R ) Gary n 3.08. Fractu re probab ility calcul ated for an untrea emmett gillis. Fractu re probab ility may be lower if the ninoska gillis has receiv ed treatm ent. Clinic al Inform ation Provid ed by Ninoska gillis: ------ ------ ------ ------ ------ ------ ------ ------ ------ ------ ----- Ninoska gillis maximu m height was 62 Menopa use Age: 38 No regula r weight bearin g exerci se Onset of menses at age 11 Number of childr en 2 ------ ------ ------ ------ ------ ------ ------ ------ ------ ------ ----- Impres elijah: The ninoska gillis has low bone mass, based on the Right Femora l Neck T-scor e. The ninoska gillis has an estima emmett ten-ye ar risk of hip fractu re of 0.7% and an estima emmett ten-ye ar risk of major fractu re of 7%, based on the WHO FRAX algori thm. Discus elijah: BONE DENSIT Y IS LOW AT ONE OR MORE SKELET AL SITES. This patien t's lowest T-scor e is low at one or more skelet al sites. It meets the World Health Organi zation 's (WHO) criter ia for low bone mass (T-sco re betwee n -1.0 and -2.5). The patien t's 10-yea r risk of fractu re as calcul ated by FRAX is less than the thresh old where pharma cologi tara therap y is recomm ended by the Nation al Osteop orosis Founda tion (NOF). Ramyaeve r, all treatm ent decisi ons requir e clinic al judgme nt and consid eratio n of indivi dual patien t factor s, includ ing patien t prefer ences, comorb iditie s, previo us drug use, risk factor s not captur ed in the FRAX model (e.g., frailt y, falls, vitami n D defici ency, increa sed bone turnov er, interv al signif icant declin e in bone densit y) and possib le under or overes timati on of fractu re risk by FRAX. The patien t should follow a health ful lifest yle (good nutrit ion with adequa te calciu m and vitami n D, and approp riate weight -beari ng exerci se). Follow -Up: Consid er repeat ing this study in 2 to 3 years to reasse ss this patien t's status , or sooner if there is some new clinic al indica tion. Review ed, dictat ed and finali zed at Locati on SOM DAVIS M.D.__ ___ < > [facility] [address] [place] [address] [phone] [facility] ([facility]) [address], [place], [address], 10/09/2016 14:51:54 09/26/19 16 09/20/2015 dexa PT NAME: SOUMYA MILLER : 1960 PT SEX/AG E: F/55 PT ACCT NUMBER : [id number] PT MR#: [id number] ROOM/B ED: PT STATUS : REG CLI DATE OF EXAMIN ATION: ORDERI PHYSIC JESSICA: MARLEE SANCHEZ MKendrick ATTEND ING PHYSIC JESSICA: MARLEE SANCHEZ , MKendrick DICTAT ING PHYSIC JESSICA: Carlin ECHEVARRIA M.D. 033 [id number] 8.001A OR 14:50: 00 41.007 2MAM ([facility]) : DIGITA L MAMM SCREEN -RACHEAL INDICA TION: Screen ing. TECHNI QUE: Screen ing digita l mammog yasemin submit emmett. CAD analys is submit emmett and interp reted. COMPAR KHUSHBU: No prior studie s for compar khushbu. FINDIN GS: Breast compos ed of scatte red areas of fibrog landul ar densit y. There are no masses or abnorm al calcif icatio ns to sugges t malign yulia. Regula r clinic al breast examin ation and annual mammog shelly are recomm ended. IMPRES ELIJAH: 1) NO MAMMOG RAPHIC EVIDEN CE OF MALIGN YULIA IN EITHER BREAST . RECOMM ENDATI ON: Routin e yearly screen ing mammog yasemin and regula r clinic al breast examin ation are recomm ended. BI-RAD S CATEGO RY 1 - NEGATI VE __ Review ed, dictat ed and finali zed at Locati on A. __ Electr onical ly signed by: SOM ECHEVARRIA Date: Time: 10:07 SOM ECHEVARRIA M.D.__ ___ [facility] [address] [place] [address] [facility] ([facility]) [address], [place], [address], 10/09/2016 14:51:54 10/12/19 17 10/11/2016 DEXA PT NAME: SOUMYA MILLER : 1960 PT SEX/AG E: F/56 PT ACCT NUMBER : [id number] PT MR#: [id number] ROOM/B ED: PT STATUS : REG CLI DATE OF EXAMIN ATION: ORDERI NG PHYSIC JESSICA: MARLEE SANCHEZ Mary ATTEND ING PHYSIC JESSICA: MARLEE SANCHEZ , Mary DICTAT ING PHYSIC JESSICA: Carlin ECHEVARRIA M.D. 021 [id number] 2.001A OR 12:14: 00 41.010 8MAM ([facility]) : DIGITA L DANIEL SCREEN - RACHEAL INDICA TION: Screen ing. TECHNI QUE: Screen ing digita l mammog yasemin submit emmett. CAD analys is submit emmett and interp reted. COMPAR KHUSHBU: Compar khushbu to multip le prior studie s. The oldest study review ed is 014. FINDIN GS: There has been no signif icant change when compar khushbu was made to prior films. Breast compos ed of scatte red areas of fibrog landul ar densit y. No mammog raphic eviden ce for malign yulia in either breast . Regula r clinic al breast examin ation in annual mammog shelly are recomm ended. IMPRES ELIJAH: 1: NO MAMMOG RAPHIC EVIDEN CE OF MALIGN YULIA IN EITHER BREAST AND NO CHANGE . RECOMM ENDATI ON: Routin e yearly screen ing mammog yasemin and regula r clinic al breast examin ation are recomm ended. BI-RAD S CATEGO RY 1 - NEGATI VE __ Review ed, dictat ed and finali zed at Locati on A. __ Electr onical ly signed by: SOM ECHEVARRIA Date: Time: 13:09 SOM ECHEVARRIA M.D.__ ___ [facility] [address] [facility] [address] [place] [address] [facility] ([facility]) [address] [place] [address] [address], [place], [address], 01/09/2018 13:47:04 10/12/19 17 10/11/2016 MAMMO , scree manasa, bilat eral No observ ation record ed. [facility] ([facility]) [address] [place] [address] [address], [place], [address], 01/09/2018 13:47:04 10/16/19 17 MAMMO , scree manasa, bilat eral No observ ation record ed. [facility] [address], [place], [address], 01/09/2018 13:47:03 01/14/20 18 01/13/2018 MAMMO , scree manasa, bilat eral No observ ation record ed. [facility] ([facility]) [address] [place] [address] [address], [place], [address], 01/15/2018 07:13:20 08/17/19 20 08/17/2019 MAMMO , scree manasa, bilat eral No observ ation record ed. [address], [place], [address], 06/05/2021 17:32:44 08/18/19 20 08/17/2019 MAMMO , scree manasa, bilat eral No observ ation record ed. [address], [place], [address], 06/05/2021 17:32:44 Result Notes None recorded. Problems Name Problem SNOMED Code Status Onset Date Resolution Date Notes Provider Name and Address Organization Details Recorded Time Smoker 50073854 Active 2017 TADEO Alejandre - [facility] 8 10:41:27 Fibrocystic disease of breast 62869494 Active 2017 arely's ligament pain Marlee frankel, [place] - [facility] 8 10:42:07 Chronic obstructive pulmonary disease 54585974 Active Marlee frankel, [place] - [facility] 6 15:47:29 Irritable bowel syndrome 12702205 Active Marlee frankel, [place] - [facility] 6 15:47:29 Obstructive sleep apnea syndrome 78354719 Active Marele frankel, [place] - [facility] 6 15:47:29 Depressive disorder 03085888 Active Marlee [place], [place] - [facility] 6 17:33:45 Osteopenia 899069778 Active Mar[place], [place] - [facility] 6 09:35:26 Problem Notes None recorded. Procedures Surgical History Date Name Laterality Status Provider Name and Address Organization Details Recorded Time 1 Date of Last Pap Smear completed ARTEMIO Moran [facility] [place] 06/05/2021 16:51:46 0 Most Recent Mammogram completed ARTEMIO Moran [facility] 06/05/2021 16:51:51 4 Other completed ARTEMIO Sheldon [facility] 09/14/2015 15:33:32 0 Caesarean Section completed [facility] [place] [facility] 09/14/2015 15:31:30 8 Caesarean Section completed ARTEMIO Sheldon [facility] 09/14/2015 15:33:32 Tubal Ligation completed ARTEMIO Sheldon [facility] 10/09/2016 11:45:10 Other completed ARTEMIO Sheldon [facility] 09/14/2015 15:33:32 Orthopedic Surgery completed ARTEMIO Sheldon [facility] 09/14/2015 15:33:32 Imaging Results Imaging Date Name Status LastModified by Organiz ation Details LastModified Time 09/19/2015 dexa completed [facility] ([facility]) [address], [place], [address], 10/09/2016 14:51:54 09/20/2015 dexa completed [facility]) [address] [facility] [address], [place], [address], 10/09/2016 14:51:54 09/19/2015 dexa completed [facility]) [address] [facility] [address] [place] [address], [phone], 10/09/2016 14:51:54 09/20/2015 dexa completed [facility]) [address] [facility] [address] [place] [address], [phone], 10/09/2016 14:51:54 10/11/2016 [facility] [address] [facility] [address], [address], 01/09/2018 13:47:04 10/11/2016 MAMMO, screening, bilateral active [facility] ([facility]) [address] [place] [address] [place] [address], [address], 01/09/2018 13:47:04 10/15/2016 MAMMO, screening, bilateral completed [facility] [address], [place], [address], 01/09/2018 13:47:03 01/13/2018 MAMMO, screening, bilateral completed [facility] ([facility]) [address] [place] [address] [place] [address], [phone], 01/15/2018 07:13:20 08/17/2019 MAMMO, screening, bilateral completed [place] [address] [facility] [address] [place] [address], [address], 06/05/2021 17:32:44 08/17/2019 MAMMO, screening, bilateral completed [place] [address] [facility] [address] [place] [address], [address], 06/05/2021 17:32:44 Procedure Notes None recorded. Medical Equipment None Reported. Allergies No known drug allergies Medications Name Sig Start Date Stop Date Status Note LastModified by Organization Details LastModified Time multivitami n tablet Take 1 tablet every day by oral route. 2020 active Not Available Not Available Not Avai lable fluconazole 100 mg tablet 10/09 completed Not Available Not Available Not Available bupropion HCl SR 150 mg tablet,12 hr sustained-r elease TAKE ONE TABLET BY MOUTH TWICE DAILY active Not Available Not Available No t Available neomycin-po lymyxin-hyd rocort 3.5 mg/mL-10,00 0 unit/mL-1 % ear solution INSTILL 4 DROPS IN THE LEFT EAR EVERY 8 HOURS FOR 7 DAYS active Not Available Not Available No t Available nystatin 100,000 unit/mL oral suspension 10/09 completed Not Available Not Available Not Available prednisone 10 mg tablet active Not Available Not Available Not Available nicotine 14 mg/24 hr daily transdermal patch 06/11 completed Not Available Not Available Not Available albuterol sulfate 2.5 mg/3 mL (0.083 %) solution for nebulizatio n USE 3 ML VIA NEBULIZER FOUR TIMES DAILY active Not Available Not Available No t Available evening primrose oil 500 mg capsule Take 1 capsule every day by oral route. 06/11 completed Not Available Not Available Not Available atorvastati n 10 mg tablet 06/11 completed Not Available Not Available Not Available Tab-A-Baldemar tablet active Not Available Not Available Not Available azithromyci n 250 mg tablet active Not Available Not Available Not Available hydrocodone 5 mg-acetamin ophen 325 mg tablet TAKE 1 TABLET BY MOUTH EVERY 8 HOURS NEEDED FOR PAIN active Not Available Not Available No t Available meloxicam 15 mg tablet active Not Available Not Available Not Available prednisone 20 mg tablet 06/11 completed Not Available Not Available Not Available alendronate 70 mg tablet Take 1 tablet every week by oral route. 06/11 completed Not Available Not Available Not Available metronidazo le 500 mg tablet Take 1 tablet twice a day by oral route for 10 days. 06/11 completed Not Available Not Available Not Available tramadol 50 mg tablet active Not Available Not Available No t Available bupropion HCl SR 100 mg tablet,12 hr sustained-r elease 06/11 completed Not Available Not Available Not Available acyclovir 800 mg tablet Take 1 tablet every day by oral route. 06/11 completed Not Available Not Available Not Available meloxicam 7.5 mg tablet 06/11 completed Not Available Not Available Not Available oxycodone-a cetaminophe n 5 mg-325 mg tablet TAKE 1 TABLET BY MOUTH EVERY 8 HOURS NEEDED FOR PAIN active Not Available Not Available No t Available prednisolon e acetate 1 % eye drops,suspe nsion 06/11 completed Not Available Not Available Not Available ropinirole 0.25 mg tablet 06/11 completed Not Available Not Available Not Available diclofenac 0.1 % eye drops 10/09 completed Not Available Not Available Not Available neomycin-po lymyxin-dex ameth 3.5 mg/mL-10,00 0 unit/mL-0.1 % eye drops active Not Available Not Available Not Available tobramycin 0.3 % eye drops 10/09 completed Not Available Not Available Not Available ropinirole 0.5 mg tablet 06/11 completed Not Available Not Available Not Available ranitidine 150 mg tablet 06/11 completed Not Available Not Available Not Available nicotine 21 mg/24 hr daily transdermal patch 06/11 completed Not Available Not Available Not Available nitroglycer in 0.4 mg sublingual tablet active Not Available Not Available Not Available omeprazole 20 mg capsule,del ayed release 06/11 completed Not Available Not Available Not Available diclofenac sodium 75 mg tablet,gunnar yed release TAKE 1 TABLET BY MOUTH TWICE DAILY active Not Available Not Available No t Available zolpidem 5 mg tablet active Not Available Not Available No t Available cefuroxime axetil 500 mg tablet active Not Available Not Available No t Available methylpredn isolone 4 mg tablets in a dose pack 06/11 completed Not Available Not Available Not Available albuterol sulfate HFA 90 mcg/actuati on aerosol inhaler INHALE 2 PUFFS BY MOUTH EVERY 4 TO 6 HOURS NEEDED active Not Available Not Available No t Available diltiazem 30 mg tablet 06/11 completed Not Available Not Available Not Available sertraline 50 mg tablet 06/11 completed Not Available Not Available Not Available loratadine 10 mg tablet active Not Available Not Available Not Available gentamicin 0.1 % topical ointment 10/09 completed Not Available Not Available Not Available naproxen 500 mg tablet 06/11 completed Not Available Not Available Not Available diazepam 5 mg tablet active Not Available Not Available No t Available amoxicillin 875 mg-potassiu m clavulanate 125 mg tablet 06/11 completed Not Available Not Available Not Available amoxicillin 500 mg-potassiu m clavulanate 125 mg tablet TAKE 1 TABLET BY MOUTH EVERY 12 HOURS FOR 10 DAYS DIRECTED 06/05 completed Not Available Not Available Not Available Premarin 0.625 mg/gram vaginal cream Insert 1 g twice a week by vaginal route. 06/11 completed Not Available Not Available Not Available Spiriva with HandiHaler 18 mcg and inhalation capsules 06/11 completed Not Available Not Available Not Available Atrovent HFA 17 mcg/actuati on aerosol inhaler 06/11 completed Not Available Not Available Not Available calcium 600 mg (as carbonate)- vitamin D3 10 mcg (400 unit) tablet Take 1 tablet twice a day by oral route. active Not Available Not Available No t Available omeprazole 20 mg tablet,gunnar yed release 06/11 completed Not Available Not Available Not Available vitamin E (dl, acetate) 180 mg (400 unit) capsule Take 1 capsule twice a day by oral route. 06/11 completed Not Available Not Available Not Available Dulera 100 mcg-5 mcg/actuati on HFA aerosol inhaler INHALE 2 PUFFS BY MOUTH EVERY 12 HOURS active Not Available Not Available No t Available Viibryd 20 mg tablet Take 1 tablet every day by oral route in the morning. 06/11 completed Not Available Not Available Not Available calcium 600 mg (as carbonate)- vitamin D3 20 mcg (800 unit) tablet Take 1 tablet twice a day by oral route for 30 days. 06/11 completed Not Available Not Available Not Available Incruse Ellipta 62.5 mcg/actuati on powder for inhalation active Not Available Not Available N ot Available Daily-Baldemar (with folic acid) 400 mcg tablet active Not Available Not Available N ot Available Vitals Date Recorded Body height Body mass index (BMI) Body weight Systolic blood pressure Diastolic blood pressure Provider Name and Address Organization Details Last Updated DateTime 01/09/2018 154.94 cm 22.1 kg/m2 96420.31 g 114 mm[Hg] 64 mm[Hg] Sarah Felix MA [facility] 8 10:24:10 Date Recorded Body weight Body mass index (BMI) Body height Systolic blood pressure Diastolic blood pressure Provider Name and Address Organization Details Last Updated DateTime 06/11/2019 77756.01 g 20.1 kg/m2 152.4 cm 104 mm[Hg] 66 mm[Hg] Sarah Felix MA [facility] 9 13:05:49 Date Recorded Body height Body mass index (BMI) Body weight Systolic blood pressure Diastolic blood pressure Provider Name and Address Organization Details Last Updated DateTime 06/05/2021 152.4 cm 22.5 kg/m2 89729.12 g 110 mm[Hg] 70 mm[Hg] Polly Lynn MA [facility] 1 16:55:21 Date Recorded Body mass index (BMI) Body height Body weight Systolic blood pressure Diastolic blood pressure Provider Name and Address Organization Details Last Updated DateTime 09/14/2015 21 kg/m2 154.94 cm 38866.75 307 g 102 mm[Hg] 72 mm[Hg] Afua Adamson MA [facility] 6 15:43:18 Date Recorded Body height Body weight Body mass index (BMI) Systolic blood pressure Diastolic blood pressure Provider Name and Address Organization Details Last Updated DateTime 10/09/2016 154.94 cm 51330.71 g 21.9 kg/m2 102 mm[Hg] 62 mm[Hg] Afua Adamson MA [facility] 7 11:51:30 Social History Question Answer Notes LastModified by Organizat ion Details LastModified Time Tobacco Smoking Status Current Every Day Smoker [facility] Adamson [facility] 09/14/2015 15:39:37 Do You Have An Advance Directive? [email or web address] Information not available 09/14/2015 What Is Your Level Of Alcohol Consumption? None Information not available 09/14/2015 Is Blood Transfusion Acceptable In An Emergency? Yes Information not available 09/14/2015 What Is Your Level Of Caffeine Consumption? None Information not available 09/14/2015 How Much Tobacco Do You Chew? None Information not available 09/14/2015 Are You Currently Employed? No Information not available 09/14/2015 What Type Of Diet Are You Following? REGULAR Information not available 09/14/2015 Which Illicit Or Recreational Drugs Have You Used? None Information not available 09/14/2015 Education 12 Information no t available 09/14/2015 What Is Your Occupation? Unemployed Information not available 09/14/2015 Live Alone Or With Others? With Others Information not available 09/14/2015 What Was The Date Of Your Most Recent Tobacco Screening? 06/05/2021 Information not available 06/05/2021 How Many Children Do You Have? 2 Information not available 09/14/2015 Performs Monthly Self-breast Exam? Yes Information not available 09/14/2015 What Is Your Relationship Status? Information not available 09/14/2015 Seat Belts Used Routinely Yes Information not available 09/14/2015 Are You Sexually Active? No Information not available 09/14/2015 Do You Have Smoke And Carbon Monoxide Detectors In Your Home? Yes Information not available 06/05/2021 At What Age Did You Start Smoking Tobacco? 13 Information not available 09/14/2015 Are You Passively Exposed To Smoke? Yes Information not available 06/05/2021 How Much Tobacco Do You Smoke? 0.5 PPD Information not available 09/14/2015 General Stress Level Medium Information not available 09/14/2015 Do You Use Any Illicit Or Recreational Drugs? Yes Marijuana Information not available 06/05/2021 Do You Use Sunscreen Routinely? No Information not available 09/14/2015 Has Tobacco Cessation Counseling Been Provided? Yes Information not available 06/05/2021 On What Date Was Tobacco Cessation Counseling Provided? 06/05/2021 Information not available 06/05/2021 How Many Years Have You Smoked Tobacco? 25 Information not available 09/14/2015 Have You Used IV Drugs? No Information not available 06/05/2021 Do You Or Have You Ever Used Any Other Forms Of Tobacco Or Nicotine? No Information not available 06/05/2021 Sex: Unknown Functional Status Question Answer Note LastModified by Organizat ion Details LastModified Time What is your exercise level? Occasional Information not available 09/14/2015 Mental Status None recorded. Family History Relationship Description Onset Age of this Age Resolved Age Notes LastModified by Organization Details LastModified Time Mother Hypertensive disorder [email or web address] Not available 09/14 15:48:08 Mother Asthma mwasserman Not available 09/14/2015 15:48:08 Mother Chronic obstructive pulmonary disease mwasserman Not available 09/14 15:48:08 Father Malignant tumor of lung mwasserman Not available 09/14 15:48:08 Brother Malignant tumor of lung x1 Heart diseas e, x1Copd mwasserman Not available 09/14/2015 15:48:08 Sister Mental disorder x1 Copd mwasserman Not available 09/14/2015 15:48:08 Medical History Condition Response Other Y High Blood Pressure N Breast Cancer N Kidney or Bladder Problems N Thyroid Problems N Lung Disease N Blood Clots N Depression N GI Problems N Acne N Breast Problem N Eating Disorder N Anemia N Anesthesia Complications N Headaches/Migraines N Anxiety Disorder Y Diabetes N Ovarian Cancer N Muscle, Joint, or Bone Problems N Blood Transfusions N Seizures/Epilepsy N Polyps N Infertility N Acid Reflux (GERD) Y Cancer N Abuse/Domestic Violence N Asthma N Endometriosis N High Cholesterol N Hepatitis N Liver Disease N Heart Disease N Pre-Eclampsia N Osteoporosis N Gynecological History Statement/Question Response Abnormal Pap Y On BCP's at Conception? N STIs/STDs N HPV Vaccine N Most Recent Mammogram 08/17/2019 Age at Menarche 11 Current Control Method Tubal Ligat ion Age at First Child 17 If Post Menopausal, Age at Menopause 37 Sexually Active? N Menses Monthly N Date of Last Pap Smear 06/05/2021 Sexual Problems? Y Desired Control Method None Obstetrics History GPAL:G 2 P 2 0 0 2 Type Value Multiple Births 0 Full Term 2 Induced 0 Spontaneous 0 Premature 0 Living 2 Ectopics 0 Total 2 Immunizations Vaccine Type Date Status Note Provider Nam e and Address Organization Details Recorded Time Influenza, split virus, quadrivalent, preservative 7 completed Not Available [facility] 08/29/2019 02:44:55 Past Encounters Encounter ID Performer Location Encounter Start Date Encounter Closed Date Diagnosis/Indication Diagnosis SNOMED-CT Code Diagnosis ICD10 Code Diagnosis Note [id number] Marlee Khan (INTERNET SALES REPRESENTATIVE) [address] [place] [address] [id number] 09/14/2015 14:39:16 09/15/2015 14:26:08 Gynecologic examination 66660567 Z01.419 Screening for malignant neoplasm of breast 618504415 Z12.39 Screening for osteoporosis 730132850 Z13.820 Depressive disorder 3548 9007 F32.9 [id number] ARTEMIO Billingsley (INTERNET SALES REPRESENTATIVE) [address] [place] [address] [id number] 0 10/09/2016 11:05:25 10/10/2016 15:41:36 Gynecologic examination 36501013 Z01.419 Screening mammography 24 347475 Z12.31 Venereal d isease screening 110162104 Z11.3 Exposure t o sexually transmissible disorder 911739052 Z20.2 Atrophic vaginitis 99661 000 N95.2 Administra tion of influenza vaccine 52211413 Z23 Depressive disorder 3548 9007 F32.9 Patient de clines smoking cessation information 4298014800 104 Z53.20 [id number] Marlee Khan (INTERNET SALES REPRESENTATIVE) [address] [place] [address] [id number] 0 01/09/2018 09:41:00 01/09/2018 10:40:51 Screening mammography 17515839 Z12.31 Fibrocysti c disease of breast 01086241 N60.19 arely's ligament pain [id number] Marlee Khan (INTERNET SALES REPRESENTATIVE) [address] [place] [address] [id number] 0 06/11/2019 11:59:16 06/11/2019 14:41:40 Screening mammography 55169096 Z12.31 Osteopenia 649165559 M85 .80 Fibrocysti c disease of breast 42114530 N60.19 arely's ligament pain Depressive disorder 3548 9007 F32.9 [id number] Marlee Khan (INTERNET SALES REPRESENTATIVE) [address] [place] [address] [id number] 0 06/05/2021 16:18:29 06/07/2021 13:58:40 Screening mammography 47549394 Z12.31 Osteopenia 421144877 M85 .80 Fibrocysti c disease of breast 14568787 N60.19 arely's ligament pain Depressive disorder 3548 9007 F32.9 Gynecologi c examination 66866587 Z01.419 Screening for malignant neoplasm of colon 419242686 Z12.11 Health Concerns Section Related Observation LastModified by Organization Detai ls LastModified Time None Recorded Concern Status LastModified by Organization Details LastModified Time None Recorded Advance Directives Directive N: Payers Encounter Date Sequence Insurance Name Policy Number Policy Felipe Covered Member ID Felipe Member ID Guarantor Name 09/14/2015 1 [facility] PRIOR TO 02/09/2021 (MEDICAID REPLACEMENT - HMO) Liset Kunz [id number] Liset Kunz 10/09/2016 1 [facility] PRIOR TO 02/09/2021 (MEDICAID REPLACEMENT - HMO) Liset Kunz [id number] Liset Kunz 01/09/2018 1 [facility] PRIOR TO 02/09/2021 (MEDICAID REPLACEMENT - HMO) Liset Kunz [id number] Liset Kunz 06/11/2019 1 [facility] PRIOR TO 02/09/2021 (MEDICAID REPLACEMENT - HMO) Liset Kunz [id number] Liset Kunz 06/05/2021 1 [facility] ON OR AFTER 02/09/21 (MEDICAID REPLACEMENT - HMO) Liset Kunz [id number] Liset Kunz Notes Date Note Type Note Provider Name and Address Organization Details Recorded Time 09/14/2015 text/html Annual GYNReport ed bypatient.History:no gynecologic complaints; no change in interval history Menstrual cycle:POST-MENOPAUSAL Urinary symptoms:No hematuria; No incontinence Vulva:No genital lesion; DRY Vagina:Normal vaginal discharge; DRY Breast:No breast pain; No breast lump; No nipple discharge Sexual complaints:No sexual complaints; No pain during intercourse; Normal libido Menopausal Symptoms:No menopausal symptoms; Normal vaginal lubrication Psychological symptoms:No depression; No anxiety; No PMDD Preventive measures:Encourage self breast examination; Encourage regular exercise; Encourage no tobacco use; Followed with Q3 year pap smear and high risk HPV typing; Mammogram performed within the past year; Needs to schedule mammogram; Needs to schedule colonoscopy Marlee Janette marlys [facility] 09/14/2015 17:34:06 10/09/2016 text/html Annual Bowling Ball Finisher Post-MenopausalReporte d bypatient.Menopausal Symptoms:no menopausal symptoms; normal vaginal lubrication Vaginal Bleeding:history of menopause having occurred; no history of post menopausal bleeding Urinary Symptoms:no hematuria; no incontinence; no nocturia; no urinary frequency Vulva:no genital lesion; no vulvar atrophy Vagina:normal vaginal discharge; no vaginal atrophy Breast:no breast lump; no nipple discharge; no breast pain Sexual Complaints:no sexual complaints Psychological Symptoms:no depression; no anxiety 56 yo WF here for an annual exam ARTEMIO Billingsley [facility] 10/11/2016 14:09:35 01/09/2018 text/html Breast ProblemsReported bypatient.Quality:asym ptomatic; no bloody discharge; no brown discharge; no milky discharge; no yellow-clear discharge; no yellow-green discharge; non-tender; improving; no mass Context:prior mammogram normal; performs breast self-examination; no breast implants; no family history of breast cancer; no history of breast cancer; no radiation treatment; no chemotherapy; no cancer; no previous biopsies; no miscarriages; recent MRI normal; lymph node status negative Modifying Factors:no recent change in exercise habits; no recent changes in weight; no recent changes in diet; no recent changes in medication dosage of hormone replacement therapy Aggravating Factors:none Associated Symptoms:no fever; no chills; no breast reddening; no nipple discharge; no sore nipples; no nipple inversion; breasts feel normal; no breast swelling; no arm pain; no arm swelling; no chest pain; no malaise; no breast lump; no change in breast skin 57 yo here for CBE Marlee Savage marlys [place] [facility] 01/09/2018 14:11:52 06/11/2019 text/html Breast ProblemsReported bypatient.Quality:asym ptomatic; no bloody discharge; no brown discharge; no milky discharge; no yellow-clear discharge; no yellow-green discharge; non-tender; improving; no mass Context:prior mammogram normal; performs breast self-examination; no breast implants; no family history of breast cancer; no history of breast cancer; no radiation treatment; no chemotherapy; no cancer; no previous biopsies; no miscarriages; recent MRI normal; lymph node status negative Modifying Factors:no recent change in exercise habits; no recent changes in weight; no recent changes in diet; no recent changes in medication dosage of hormone replacement therapy Aggravating Factors:none Associated Symptoms:no fever; no chills; no breast reddening; no nipple discharge; no sore nipples; no nipple inversion; breasts feel normal; no breast swelling; no arm pain; no arm swelling; no chest pain; no malaise; no breast lump; no change in breast skin 57 yo here for CBE Marlee TADEO [place] 06/11/2019 14:26:42 06/05/2021 text/html 57 yo female wit h history of fibrocystic breast disease, osteopenia and depression here for CBE. Last pap with HPV 2017 negative. TADEO Alejandre 06/05/2021 17:37:20 06/05/2021 text/html Annual Bowling Ball Finisher Post-MenopausalReporte d bypatient.Menopausal Symptoms:no menopausal symptoms; normal vaginal lubrication Vaginal Bleeding:history of menopause having occurred; no history of post menopausal bleeding Urinary Symptoms:no hematuria; no incontinence; no nocturia; no urinary frequency Vulva:no genital lesion;atrophic vulva Vagina:normal vaginal discharge;atrophic vagina Breast:no breast lump; no nipple discharge; no breast pain Sexual Complaints:no sexual complaints Psychological Symptoms:no depression; no anxiety Preventive Measures:encourage regular mammograms starting age 40; encourage self breast examination; encourage regular exercise; encourage no tobacco use; mammogram performed within the past year; needs to schedule colonoscopy; needs to schedule bone density Marlee RuthJanetteTADEO echavarria 06/05/2021 17:37:20 OBGyn Episode Ob Episode Information Episode Created Date Number of Fetuses Patient Bloodtype Patient rh Status Prepregnancy Weight lbs Domestic Partner Domestic Partner Phone Father Name Technical Service Rep Status 09/14/19 16 1 CLOSED Fetus Data First Name Last Name Admitted to NICU Weight (g) Sex Living Outcome Pediatric Complications Fetus ID Race Codes Race Delivery Type 3543.68 75 M Prematur e [id number] Pedro Calculation Initial Pedro Date Initial Exam Date Initial Exam Provider Initial Ultrasound Date Last Menstrual Period Date Ultra Sound Weeks Gestation 0 Eighteen To Twenty Week Pedro Update Ultra Sound Date Fundal Height At Umbil Quickening Date Ultra Sound Latest Weeks Gestation Final Pedro Confirmed By Final Pedro Confirmed Date Final Pedro Date Ultra Sound Latest Days Gestation 0 0 Menstrual History Last Menstrual Date Menses Monthly On Bcp Conception Prior Menses Frequency Hcg Plus Date Menarche Onset Age Delivery Information Delivery Date Delivery Type Labor Anesthesia Weeks Gestation Incision Type Labor Labor Length Hrs Delivered By Post Complications Tubal Sterilization Discharge Date Comments 0 General 37 false Kapil Discharge Information Feeding Method Contraceptive Method Maternal HG B and HCT Levels Ob Episode Information Episode Created Date Number of Fetuses Patient Bloodtype Patient rh Status Prepregnancy Weight lbs Domestic Partner Domestic Partner Phone Father Name Technical Service Rep Status 09/14/19 16 1 CLOSED Fetus Data First Name Last Name Admitted to NICU Weight (g) Sex Living Outcome Pediatric Complications Fetus ID Race Codes Race Delivery Type 3146.79 43 F Full Term [id number] Pedro Calculation Initial Pedro Date Initial Exam Date Initial Exam Provider Initial Ultrasound Date Last Menstrual Period Date Ultra Sound Weeks Gestation 0 Eighteen To Twenty Week Pedro Update Ultra Sound Date Fundal Height At Umbil Quickening Date Ultra Sound Latest Weeks Gestation Final Pedro Confirmed By Final Pedro Confirmed Date Final Pedro Date Ultra Sound Latest Days Gestation 0 0 Menstrual History Last Menstrual Date Menses Monthly On Bcp Conception Prior Menses Frequency Hcg Plus Date Menarche Onset Age Delivery Information Delivery Date Delivery Type Labor Anesthesia Weeks Gestation Incision Type Labor Labor Length Hrs Delivered By Post Complications Tubal Sterilization Discharge Date Comments 8 General 40 false Meliss a Discharge Information Feeding Method Contraceptive Method Maternal HG B and HCT Levels
--- OUTSIDE RECORDS SUMMARY | 2024-09-18 11:46 | XMS_ITS | Data Portability ---
Author Organization [place] [facility] [employer], Main Office Address [address] [place] [address] Assessment No assessment recorded. Plan of Treatment Reminders Order Date Submit Date Provider Last Modified By Organization Details Last Modified Time Details Appointments None recorded. Lab None recorded. Referral None recorded. Procedures None recorded. Surgeries None recorded. Imaging None recorded. Medication Orders cyanocobala min (vit B-12) 1,000 mcg/mL injection solution 2022 023 [id number], [address], [place], [phone], 3 21:23:52 ergocalcife rol (vitamin D2) 1,250 mcg (50,000 unit) capsule 2022 023 [place] [id number], [address], [place], [phone], 3 21:23:50 Patient TargetsNo targets recorded. Patient InstructionsNo instructions recorded. Reason for Referral None Reported. Results Created Date Observation Date Name Description Value Unit Range Abnormal Flag Note LastModifiedBy Organization Detail LastModifiedTime Result Notes None recorded. Problems Name Problem SNOMED Code Status Onset Date Resolution Date Notes Provider Name and Address Organization Details Recorded Time Acquired hallux limitus of right great toe 0723848759921 100 Active 2020 Not Available [facility] 3 03:02:46 Postoperat yefri visit 708416375 Active 2020 Not Available [facility] 3 03:02:46 Disorder of lung 87854141 Active 2020 Not Available [facility] 3 03:02:46 Shane thyroiditi s 44622391 Active 2021 Not Available [facility] 3 03:02:46 Low back pain 141300085 Active Not Available [facility] 3 03:02:47 Osteopenia 842100062 Active 2021 Not Available [facility] 3 03:02:47 Vitamin D deficiency 59241876 Active 2021 Not Available [facility] 3 03:02:47 Arthritis 6650879 Active 2020 Not Available [facility] 3 03:02:47 Disorder of bursa of shoulder region 84092170 Active Not Available [facility] 3 03:02:47 Carpal tunnel syndrome 56043522 Active Not Available [facility] 3 03:02:47 Vitamin B12 deficiency (non anemic) 97843497 Active 2021 Not Available [facility] 3 03:02:47 Cellulitis of toe 60045845 Active 2020 Not Available [facility] 3 03:02:47 Notes:PULMONARY DISEASE Problem Notes None recorded. Procedures Surgical History Date Name Laterality Status Provider Name and Address Organization Details Recorded Time Foot Surgery completed Not Available [facility] 023 02:55:59 Cataract Surgery completed Not Available [facility] 10/10/2022 02:55:59 Carpal tunnel surgery completed Not Available [facility] 10/10/2022 02:55:59 Cyst Removal completed Not Available [facility] 10/10/2022 02:55:59 section completed Not Available [facility] 10/10/2022 02:55:59 Imaging Results None recorded. Procedure Notes None recorded. Medical Equipment None Reported. Medications Name Sig Start Date Stop Date Status Note LastModified by Organization Details LastModified Time cyclobenzap rine 10 mg tablet TAKE 1 TABLET BY MOUTH THREE TIMES DAILY 04/11 completed Not Available Not Available Not Available Mapap Extra Strength 500 mg tablet 1000 mg by oral route. 03/03 completed Not Available Not Available Not Available neomycin-po lymyxin-hyd rocort 3.5 mg/mL-10,00 0 unit/mL-1 % ear solution INSTILL 4 DROPS IN THE LEFT EAR EVERY 8 HOURS FOR 7 DAYS 02/07 completed Not Available Not Available Not Available nystatin 100,000 unit/mL oral suspension SWISH AND SWALLOW 4 ML BY MOUTH FOUR TIMES DAILY FOR 14 DAYS 04/11 completed Not Available Not Available Not Available prednisone 10 mg tablet TAKE 4 TABLETS BY MOUTH DAILY FOR 5 DAYS 04/11 completed Not Available Not Available Not Available doxycycline hyclate 100 mg capsule TAKE 1 CAPSULE BY MOUTH TWICE DAILY FOR 7 DAYS 04/11 completed Not Available Not Available Not Available ipratropium 0.5 mg-albutero l 3 mg (2.5 mg base)/3 mL nebulizatio n soln 3 mL by inhalatio n route. 03/03 completed Not Available Not Available Not Available albuterol sulfate 2.5 mg/3 mL (0.083 %) solution for nebulizatio n USE 1 VIAL VIA NEBULIZER FOUR TIMES DAILY active Not Available Not Available No t Available azithromyci n 250 mg tablet TK 2 TS PO ON DAY 1, THEN TK 1 T PO D FOR 4 DAYS 04/11 completed Not Available Not Available Not Available hydrocodone 5 mg-acetamin ophen 325 mg tablet active Not Available Not Available No t Available naloxone 0.4 mg/mL injection solution 0.2 mg by injection route. 03/03 completed Not Available Not Available Not Available prednisone 20 mg tablet TAKE 1 TABLET BY MOUTH TWICE DAILY FOR 5 DAYS 04/11 completed Not Available Not Available Not Available lactated Ringers intravenous solution 1000 mL by intraven. route. 03/03 completed Not Available Not Available Not Available tramadol 50 mg tablet 11/25 completed Not Available Not Available Not Available cefazolin 10 gram solution for injection 2000 mg by injection route. 03/03 completed Not Available Not Available Not Available acyclovir 800 mg tablet 11/25 completed Not Available Not Available Not Available diphenhydra mine 50 mg/mL injection solution 12.5 mg by injection route. 03/03 completed Not Available Not Available Not Available Xylocaine 10 mg/mL (1 %) injection solution 20 mL by injection route. 03/03 completed Not Available Not Available Not Available ciprofloxac in 0.3 % eye drops INSTIL 5 DROPS INTO THE LEFT EAR TWICE DAILY 04/11 completed Not Available Not Available Not Available pantoprazol e 40 mg tablet,gunnar yed release TAKE 1 TABLET BY MOUTH EVERY MORNING active Not Available Not Available No t Available cyanocobala min (vit B-12) 1,000 mcg/mL injection solution active Not Available Not Available Not Available ranitidine 150 mg tablet 11/25 completed Not Available Not Available Not Available prednisone 50 mg tablet 04/11 completed Not Available Not Available Not Available nicotine 21 mg/24 hr daily transdermal patch APPLY 1 PATCH TOPICALLY TO THE SKIN EVERY MORNING 04/11 completed Not Available Not Available Not Available fentanyl (PF) 50 mcg/mL injection solution 25 microgram s by injection route. 03/03 completed Not Available Not Available Not Available buspirone 7.5 mg tablet 11/25 completed Not Available Not Available Not Available omeprazole 20 mg capsule,del ayed release 11/25 completed Not Available Not Available Not Available diclofenac sodium 75 mg tablet,gunnar yed release TAKE 1 TABLET BY MOUTH TWICE DAILY 04/11 completed Not Available Not Available Not Available amoxicillin 250 mg capsule TAKE 1 CAPSULE BY MOUTH EVERY 8 HOURS 04/11 completed Not Available Not Available Not Available insulin syringe U-100 with needle 1 mL 31 gauge x 5/16 DIRECTED TO INJECT B12 ONCE A WEEK 2022 active Not Available Not Available Not Avai lable zolpidem 5 mg tablet 11/25 completed Not Available Not Available Not Available sodium chloride 0.9 % intravenous solution 100 mL by intraven. route. 03/03 completed Not Available Not Available Not Available ergocalcife rol (vitamin D2) 1,250 mcg (50,000 unit) capsule TAKE 1 CAPSULE BY MOUTH EVERY WEEK active Not Available Not Available No t Available dexamethaso ne sodium phosphate 4 mg/mL injection solution 4 mg by injection route. 03/03 completed Not Available Not Available Not Available albuterol sulfate HFA 90 mcg/actuati on aerosol inhaler INHALE 2 PUFFS BY MOUTH EVERY 4 TO 6 HOURS NEEDED active Not Available Not Available No t Available Percocet 5 mg-325 mg tablet 1 tablet by oral route. 2020 active Not Available Not Available Not Avai lable cefdinir 300 mg capsule TAKE 1 CAPSULE BY MOUTH EVERY 12 HOURS 07/23 completed Not Available Not Available Not Available Augmentin 500 mg-125 mg tablet Take 1 tablet every 12 hours by oral route as directed for 10 days. 04/24 completed Not Available Not Available Not Available naproxen 500 mg tablet TAKE 1 TABLET BY MOUTH TWICE DAILY 04/11 completed Not Available Not Available Not Available diazepam 5 mg tablet TAKE 1/2 TABLET TWICE DAILY NEEDED FOR ANXIETY active Not Available Not Available No t Available amoxicillin 875 mg-potassiu m clavulanate 125 mg tablet 11/25 completed Not Available Not Available Not Available rosuvastati n 5 mg tablet TAKE 1 TABLET BY MOUTH EVERY DAY 04/11 completed Not Available Not Available Not Available Marcaine (PF) 0.25 % (2.5 mg/mL) injection solution 10 mL by injection route. 03/03 completed Not Available Not Available Not Available Spiriva with HandiHaler 18 mcg and inhalation capsules USE 1 INHALATIO N BY MOUTH EVERY DAY active Not Available Not Available No t Available nitrofurant oin monohydrate /macrocryst als 100 mg capsule TAKE 1 CAPSULE BY MOUTH TWICE DAILY IN THE MORNING AND IN THE EVENING 04/11 completed Not Available Not Available Not Available Atrovent HFA 17 mcg/actuati on aerosol inhaler 11/25 completed Not Available Not Available Not Available calcium 600 mg (as carbonate)- vitamin D3 10 mcg (400 unit) tablet active Not Available Not Available Not Available ondansetron HCl (PF) 4 mg/2 mL injection solution 4 mg by injection route. 03/03 completed Not Available Not Available Not Available famotidine (PF) 20 mg/2 mL intravenous solution 20 mg by intraven. route. 03/03 completed Not Available Not Available Not Available Dulera 100 mcg-5 mcg/actuati on HFA aerosol inhaler INHALE 2 PUFFS BY MOUTH EVERY 12 HOURS active Not Available Not Available No t Available Vitamin D3 50 mcg (2,000 unit) capsule Take 2 capsules every day by oral route in the morning for 30 days. 11/10 completed Not Available Not Available Not Available Multi Vitamin 01/12 completed Not Available Not Available Not Available hydromorpho ne 0.5 mg/0.5 mL injection syringe 0.5 mg by injection route. 03/03 completed Not Available Not Available Not Available Incruse Ellipta 62.5 mcg/actuati on powder for inhalation 11/25 completed Not Available Not Available Not Available Trelegy Ellipta 100 mcg-62.5 mcg-25 mcg powder for inhalation Inhale 1 puff every day by inhalatio n route. 02/07 completed Not Available Not Available Not Available Daily-Baldemar (with folic acid) 400 mcg tablet 04/11 completed Not Available Not Available Not Available Vitals Date Recorded Body height Body mass index (BMI) Body weight Heart rate Systolic blood pressure Diastolic blood pressure Provider Name and Address Organization Details Last Updated DateTime 3 154.94 cm 18.6 kg/m2 88768.7 7 g 85 /min 104 mm[Hg] 68 mm[Hg] Belinda [place] [facility] [place] [facility] 3 16:27:26 Date Recorded Body mass index (BMI) Body mass index (BMI) Body mass index (BMI) Body height Body height Body height Body height Oxygen saturation Oxygen saturation in Arterial blood by Pulse oximetry Oxygen saturation Oxygen saturation in Arterial blood by Pulse oximetry Heart rate Heart rate Heart rate Body temperature Body temperature Body weight Body weight Body weight Systolic blood pressure Diastolic blood pressure Systolic blood pressure Diastolic blood pressure Systolic blood pressure Diastolic blood pressure Provider Name and Address Organization Details Last Updated DateTime 3 20.2 kg/m2 20.8 kg/m2 19.7 kg/m2 154.94 cm 154.94 cm 154.94 cm 154.94 cm 96 % 96 % 96 % 96 % 86 /min 66 /min 78 /min 97.8 [degF] 97.7 [degF] 05205.3 8 g 26100.1 6 g 96265.6 1 g 132 mm[Hg] 85 mm[Hg] 105 mm[Hg] 65 mm[Hg] 110 mm[Hg] 65 mm[Hg] Not Available [facility] 02:58:25 Social History Question Answer Notes LastModified by Organizat ion Details LastModified Time Tobacco Smoking Status Current Every Day Smoker Not Available [facility] 10/10/2022 02:44:33 What Is Your Level Of Alcohol Consumption? None [id number] Information not available 10/10/2022 What Is Your Level Of Caffeine Consumption? Occasional [id number] Information not available 10/10/2022 In The 14 Days Before Symptom Onset, Have You Had Close Contact With A Laboratory-confir med COVID-19 While That Case Was Ill? No [id number] Information not available 10/10/2022 In The 14 Days Before Symptom Onset, Have You Had Close Contact With A Person Who Is Under Investigation For COVID-19 While That Person Was Ill? No [id number] Information not available 10/10/2022 Which Illicit Or Recreational Drugs Have You Used? Marijuana [id number] Information not available 10/10/2022 How Much Tobacco Do You Smoke? 1 PPD [id number] Information not available 10/10/2022 Sex: Female Functional Status None recorded. Mental Status None recorded. Family History Relationship Description Onset Age of this Age Resolved Age Notes LastModified by Organization Details LastModified Time Mother Arthritis [id number] Not available 10/10/2022 02:56:01 Mother Hypertensive disorder [id number] Not available 10/10/2022 02:56:01 Brother Hypertensive disorder [id number] Not available 10/10/2022 02:56:02 Brother Heart disease [id number] Not available 10/10/2022 02:56:02 Notes:CANCER-FATHER/BROTHER Medical History Condition Response HYPERTHYROIDISM Y ARTHRITIS Y LUNG DISEASE/DISORDER Y Gynecological HistoryNo gynecological history recorded. Obstetrics History GPAL:G 0 P 0 0 0 0 Past Encounters Encounter ID Performer Location Encounter Start Date Encounter Closed Date Diagnosis/Indication Diagnosis SNOMED-CT Code Diagnosis ICD10 Code Diagnosis Note [id number] _SHELLEY_M IGRATION_ DEFAULT_1 _1 , 11/10/2020 00:00:00 11/10/2020 11:56:30 [id number] [facility] [address], [address] [place] [address] 02/07/2021 00:00:00 02/07/2021 14:17:33 [id number] _SHELLEY_M IGRATION_ DEFAULT_1 _1 , 03/06/2021 00:00:00 03/10/2021 18:33:02 [id number] _SHELLEY_M IGRATION_ DEFAULT_1 _1 , 03/13/2021 00:00:00 03/13/2021 19:43:44 [id number] _SHELLEY_M IGRATION_ DEFAULT_1 _1 , 03/20/2021 00:00:00 03/21/2021 10:08:42 [id number] _SHELLEY_M IGRATION_ DEFAULT_1 _1 , 03/27/2021 00:00:00 03/27/2021 14:45:03 [id number] _SHELLEY_M IGRATION_ DEFAULT_1 _1 , 04/10/2021 00:00:00 04/10/2021 14:21:51 [id number] _SHELLEY_M IGRATION_ DEFAULT_1 _1 , 10/26/2021 00:00:00 10/26/2021 17:57:19 [id number] [facility] [address] [place] [address] 02/02/2022 00:00:00 02/02/2022 16:13:22 [id number] [facility] [address] [place] [address] 07/23/2022 00:00:00 07/23/2022 14:23:28 [id number] Leann Meléndez MD [facility] [address] [place] [address] 04/11/2023 16:07:02 04/11/2023 16:45:26 Osteopenia 532466803 M85.80 Recommende d 1200 mg of calcium daily to maintain bone health along with immune health. Reassess bone density next year. Educated on importance of maintainin g adequate calcium and vitamin D for bone health to prevent fracture. Due for bone density scan this winter. She is aware to follow up with her PCP this winter to repeat due to my resignatio n. Vitamin B1 2 deficiency (non anemic) 30334288 E53.8 Continue on B12 injections as patient has more energy and focus on injections . Vitamin D deficiency 347 51597 E55.9 Continue on vitamin D once weekly for bone and immune health. Spent up to 25 minutes preparing to see the patient (eg, review of tests), obtaining and/or reviewing separately obtained history, performing a medically appropriat e examinatio n and evaluation , counseling and educating the patient, ordering medication s, tests, along with documentin g clinical informatio n in the electronic health record, independen tly interpreti ng results and communicat ing results to the patient. Patient can be followed by PCP - she/he is aware of my resignatio n and last day of May 24. If needed his/her PCP can refer patient to another endocrinol ogist in the area. All questions /concerns answered and refills necessary at visit today. Health Concerns Section Related Observation LastModified by Organization Detai ls LastModified Time None Recorded Concern Status LastModified by Organization Details LastModified Time None Recorded Advance Directives Directive None Recorded Payers Encounter Date Sequence Insurance Name Policy Number Policy Felipe Covered Member ID Felipe Member ID Guarantor Name 04/11/2023 1 [facility] ON OR AFTER 02/09/21 (MEDICAID REPLACEMENT - HMO) Liset Kunz [id number] Liset Kuzn Notes Date Note Type Note Provider Name and Address Organization Details Recorded Time 04/11/2023 text/html 62 yo female comes in for follow up in management of hashimotos thyroiditis, osteopenia, vit D/B12 def. last seen in Jul at that time we continued thyroid support along with vitamin B12 injections weekly and vit D 50 weekly due for repeat density scan this year/early next year She is doing well overall. 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 She does use oxygen on hot /humid days but otherwise doing well. She has no recent falls or fractures. labs from 04/06/23:TPO 8 IU/mlFT4 of 2.9 pg/MLglucose 98 mg/dLCr normalLFT normalTSH of 0.617 uIU/mlvit D 67.7 ng/mLFT4 of 1.25 ng/dL Leann Meléndez MD [address] [address], [place], [address], [facility] 04/11/2023 21:24:51 OBGyn Episode No OBEpisode recorded.
--- OUTSIDE RECORDS SUMMARY | 2024-09-18 11:47 | XMS_ITS | Referral Summary ---
Author Organization [facility] Address [address] [address] Care Team Providers Care Balance Truer Name Role Phone Dc Alamo MD Primary Care Provider [phone] Allergies Active Allergy Reactions Criticality Noted Date Comments Albuterol Medications No known medications Active Problems Problem Noted Date Diagnosed Date Hematochezia 03/18/2013 Difficulty in swallowing 12/18/2011 Smokes tobacco daily 11/21/2011 Current smoker 01/24/2011 Overview (11/21/2017): Description: 01/24/2011 Social History Tobacco Use Types Packs/Day Years Used Date Smoking Tobacco: Every Day Comments Unknown Sex and Gender Information Value Date Recorded Sex Assigned at Not on file Legal Sex Female 8:43 PM DRAWER UPFITTER Gender Identity Not on file Sexual Orientation Not on file Last Filed Vital Signs Vital Sign Reading Time Taken Comments Blood Pressure 111/59 08/30/2014 10:06 AM DRAWER UPFITTER Pulse 66 09/08/2015 10:15 AM DRAWER UPFITTER Temperature 36.4 C (97.6 F) 08/30/2014 10:06 AM DRAWER UPFITTER Respiratory Rate - - Oxygen Saturation 95% 08/30/2014 10:06 AM DRAWER UPFITTER Inhaled Oxygen Concentration - - Weight 61.7 kg (136 lb) 08/30/2014 10:06 AM DRAWER UPFITTER Height 152.4 cm (5') 08/30/2014 10:06 AM DRAWER UPFITTER Body Mass Index 26.56 08/30/2014 10:06 AM DRAWER UPFITTER Plan of Treatment Not on file Procedures Procedure Name Priority Date/Time Associated Diagnosis Comments COLONOSCOPY REPORT 05/20/2013 from Last 3 Months or Most Recently Relevant to Health Maintenance Results * COLONOSCOPY REPORT (05/20/2013) Anatomical Region Laterality Modality Other Narrative 05/20/2013 Ordered by an unspecified provider. us Historical Provider GI PROCEDURE ORDERABLES F inal Result from Last 3 Months or Most Recently Relevant to Health Maintenance Insurance [facility] Care Teams Balance Truer Relationship Specialty Start Date End Date Dc Alamo MD PCP - General 12/11/16
--- OUTSIDE RECORDS SUMMARY | 2024-09-18 11:47 | XMS_ITS | Clinical Summary ---
Author Organization [facility] Address [address] [address] Care Team Providers Care Dragline Oiler Name Role Phone Dc Alamo MD Primary Care Provider [phone] Allergies Active Allergy Reactions Criticality Noted Date Comments Albuterol Medications No known medications Active Problems Problem Noted Date Diagnosed Date Hematochezia 03/18/2013 Difficulty in swallowing 12/18/2011 Smokes tobacco daily 11/21/2011 Current smoker 01/24/2011 Overview (11/21/2017): Description: 01/24/2011 Surgical History Surgery Date Site/Laterality Comments HAND SURGERY Hand Surgery - (Added by TW Conv) [place] DELIVERY ONLY Section - 1977 and 1979. (Added by TW Conv) Medical History Medical History Date Comments Chronic obstructive pulmonar y disease (HCC) Chronic obstructive pulmonar y disease - (Added by TW Conv) Personal history of other en docrine, nutritional and metabolic disease History of hyperchol esterolemia - (Added by TW Conv) Tobacco abuse counseling Encount er for smoking cessation counseling - 01/24/2011 (Added by TW Conv) Family History Medical History Relation Name Comments Coronary artery disease Brother Heaven nary Artery Disease - (Added by TW Conv) Lung cancer Brother Malignant Neopl asm Bronchus and Lung - (Added by TW Conv) Lung cancer Father Malignant Neopl asm Bronchus and Lung - (Added by TW Conv) Relation Name Status Comments Brother Father Social History Tobacco Use Types Packs/Day Years Used Date Smoking Tobacco: Every Day Comments Unknown Sex and Gender Information Value Date Recorded Sex Assigned at Not on file Legal Sex Female 8:43 PM KEY RINGER Gender Identity Not on file Sexual Orientation Not on file Obstetrics History Last Filed Vital Signs Vital Sign Reading Time Taken Comments Blood Pressure 111/59 08/30/2014 10:06 AM KEY RINGER Pulse 66 09/08/2015 10:15 AM KEY RINGER Temperature 36.4 C (97.6 F) 08/30/2014 10:06 AM KEY RINGER Respiratory Rate - - Oxygen Saturation 95% 08/30/2014 10:06 AM KEY RINGER Inhaled Oxygen Concentration - - Weight 61.7 kg (136 lb) 08/30/2014 10:06 AM KEY RINGER Height 152.4 cm (5') 08/30/2014 10:06 AM KEY RINGER Body Mass Index 26.56 08/30/2014 10:06 AM KEY RINGER Plan of Treatment Health Maintenance Due Date Last Done Comments Breast Cancer Screening-Mammogram 1958 Depression Screening 1958 Fall Risk Assessment 1960 Hepatitis C Screening 1958 Osteoporosis Screening-Bone Density Scan 1960 Pneumococcal vaccine 65+ (1 of 2 - PCV) 1964 DTaP/Tdap/Td Vaccine (1 - Tdap) 1969 Hepatitis B Screening 1976 Zoster Vaccine (1 of 2) 2008 Colon Cancer Screening-Colonoscopy 05/20/20232012 Well Visit 65+ 2023 Covid-19 Vaccine ( season) 2024 09/11/2021, 03/11/2021, 02/18/2021 Influenza Vaccine (#1) 2024 06/15/2015 Procedures Procedure Name Priority Date/Time Associated Diagnosis Comments COLONOSCOPY REPORT 05/20/2013 from Last 3 Months or Most Recently Relevant to Health Maintenance Results * COLONOSCOPY REPORT (05/20/2013) Anatomical Region Laterality Modality Other Narrative 05/20/2013 Ordered by an unspecified provider. us Historical Provider GI PROCEDURE ORDERABLES F inal Result from Last 3 Months or Most Recently Relevant to Health Maintenance Insurance [facility] Care Teams Dragline Oiler Relationship Specialty Start Date End Date Dc Alamo MD PCP - General 12/11/16
--- OUTSIDE RECORDS SUMMARY | 2024-09-18 11:47 | XMS_ITS | Clinical Summary ---
Author Organization [facility] Address [address] [place] [address] Phone Care Team Providers Care Division Plant Engineer Name Role Phone Zaki Andrade MD Primary Care Provider Social History Tobacco Use Types Packs/Day Years Used Date Smoking Tobacco: Never Assessed Comments Unknown Sex and Gender Information Value Date Recorded Sex Assigned at Not on file Legal Sex Female 2:50 PM CDT Gender Identity Not on file Sexual Orientation Not on file Plan of Treatment Not on file Insurance MEDICAID [facility] Care Teams Division Plant Engineer Relationship Specialty Start Date End Date Zaki Andrade MD [address] [address] PCP - General Family Medicine 05/20/19
--- OUTSIDE RECORDS SUMMARY | 2024-09-18 11:47 | XMS_ITS | Encounter Summary ---
Author Organization [facility] Address [address] [place] [address] Phone Care Team Providers Care Cloth Tester Name Role Phone Dc Alamo MD Primary Care Provider [phone] Encounter Details Date Type Department Care Team (Late st Contact Info) Description 06/30/2021 Orders Only [facility] Scanning, Provider Social History Tobacco Use Types Packs/Day Years Used Date Smoking Tobacco: Every Day Comments Unknown Sex and Gender Information Value Date Recorded Sex Assigned at Not on file Legal Sex Female 8:43 PM CHEMICAL DEPENDENCY COUNSELOR Gender Identity Not on file Sexual Orientation Not on file documented as of this encounter Plan of Treatment Not on file documented as of this encounter Procedures Procedure Name Priority Date/Time Associated Diagnosis Comments SCAN - LABS 06/30/2021 documented in this encounter Results * SCAN - LABS (06/30/2021) us Provider Scanning Final Result documented in this encounter Visit Diagnoses Not on filedocumented in this encounter Care Teams Cloth Tester Relationship Specialty Start Date End Date Dc Alamo MD PCP - General 12/11/16 documented as of this encounter
--- OUTSIDE RECORDS SUMMARY | 2024-09-18 11:47 | XMS_ITS | Data Portability ---
Author Organization [place] - [facility] OFFICE Address [address] [place] [id number] Assessment Encounter Date Assessment Date Assessment LastModified by Organization Details LastModified Time 03/27/2022 03/27/2022 This document was scribed by ISAEL Green Not available 03/27/2022 17:00:59 09/28/2022 09/28/2022 This document was scribed by ISAEL Green Not available 09/27/2022 17:44:01 03/26/2023 03/26/2023 This document was scribed by ISAEL Green [email or web address] Not available 03/24/2023 18:56:56 Plan of Treatment Reminders Order Date Submit Date Provider Last Modified By Organization Details Last Modified Time Details Appointments None recorded. Lab None recorded. Referral None recorded. Procedures None recorded. Surgeries None recorded. Imaging electrocard iogram 2020 021 SHELLEY Not available 17:54:09 electrocard iogram 2021 022 SHELLEY Not available 16:31:50 Medication Orders Crestor 5 mg tablet 2021 022 M[id number], [address], [place], [place], [id number], 17:06:07 Patient TargetsNo targets recorded. Patient Instructions Encounter Date Encounter Id Patient Instructions Last Modified By Organization Details Last Modified Time 02/27/2021 [id number] Exercise advised Low cholesterol diet advised Low sodium diet advised [email or web address] Not available 02/27/2021 14:51:26 Patient was seen and evaluated by Clair Bermudez [facility]. Plan of care was discussed with collaborating physician and note cosigned by Dr. Arturo Ribeiro. [email or web address] Not available 02/27/2021 14:51:44 03/27/2022 [id number] Weight loss, pounds Advised against smoking Exercise advised Low cholesterol diet advised Low sodium diet advised. [email or web address] Not available 03/27/2022 17:02:29 03/26/2023 [id number] Exercise advised Low cholesterol diet advised Low sodium diet advised. [email or web address] Not available 03/26/2023 13:09:05 Reason for Referral None Reported. Results Created Date Observation Date Name Description Value Unit Range Abnormal Flag Note LastModifiedBy Organization Detail LastModifiedTime 02/25/20 21 02/24/2021 elect rocar diogr am No observ ation record ed. tim Osei MD [address], [place], [address], 04/16/2021 17:54:09 08/19/19 22 08/19/2021 elect rocar diogr am No observ ation record ed. tim Osei MD [address], [place], [address], 10/06/2021 16:31:50 10/06/19 22 10/03/2021 elect rocar diogr am No observ ation record ed. [email or web address] Not Available 2021 09:28:18 10/20/19 22 10/16/2021 , [facility] ardio gram No observ ation record ed. [email or web address] Not Available 2021 12:18:24 11/23/19 22 02/27/2021 elect rocar diogr am No observ ation record ed. [email or web address] Not Available 2021 14:02:52 03/28/20 22 03/27/2022 elect rocar diogr am No observ ation record ed. [email or web address] Not Available 2021 11:51:15 10/04/19 23 09/28/2022 elect rocar diogr am No observ ation record ed. [email or web address] Not Available 2022 12:57:28 04/02/20 23 03/26/2023 elect rocar diogr am No observ ation record ed. [email or web address] Not Available 2022 14:24:04 Result Notes None recorded. Problems Name Problem SNOMED Code Status Onset Date Resolution Date Notes Provider Name and Address Organization Details Recorded Time Chronic obstructiv e pulmonary disease 75748455 Active 2015 Asthma oxygen at night Grace frank[place], [place] - [facility] 2 14:27:59 Gastroesop hageal reflux disease 381953890 Active 2015 Bar frankel, [place] - [facility] 6 11:43:29 Carpal tunnel syndrome 80666540 Active 2015 Bar frankel, [place] - [facility] 6 11:43:39 Degenerati ve joint disease involving multiple joints 956268443 Active 2015 Bar frankel, [place] - [facility] 6 11:43:56 Anxiety 77722880 Active 2015 Bar [place] - [facility] 6 11:44:03 Esophageal anastomoti c stricture 957672996 Active [facility] [place] [facility] 6 11:45:00 Irritable bowel syndrome 23153313 Active 2015 Bar [place] - [facility] 6 11:45:13 History of depression 083646530 Active 2015 Bar [place] - [facility] 6 11:45:23 Benign essential hypertensi on 2574796 Active 2016 Grace frankel [place] - [facility] 2 14:27:53 Dyslipidem ia 343529210 Active 201603/15/16: LDL 83 Grace frankel [place] - [facility] 2 14:28:04 Smokes tobacco daily 794485101 Active 2016 Edwards Mesto null, [place] - [facility] 7 14:15:04 Peripheral arterial occlusive disease 722309396 Active 2016 Grace King [facility] 7 14:25:47 Problem Notes None recorded. Procedures Surgical History Date Name Laterality Status Provider Name and Address Organization Details Recorded Time Caesarean Section completed Grace Fernando [facility] 02/01/2016 16:47:28 Imaging Results Imaging Date Name Status LastModified by Organization Details LastModified Time 02/24/2021 electrocardiogram completed tim Grossman [address], [place], [address], 04/16/2021 17:54:09 08/19/2021 electrocardiogram completed tim Grossman [address], [place], [address], 10/06/2021 16:31:50 10/03/2021 electrocardiogram completed Informa tion not available 10/06/2021 09:28:18 10/16/2021 US, echocardiogram completed Inform ation not available 10/19/2021 12:18:24 02/27/2021 electrocardiogram completed Informa tion not available 11/22/2021 14:02:52 03/27/2022 electrocardiogram completed Informa tion not available 03/28/2022 11:51:15 09/28/2022 electrocardiogram completed Informa tion not available 10/05/2022 12:57:28 03/26/2023 electrocardiogram completed Informa tion not available 04/02/2023 14:24:04 Procedure Notes None recorded. Medical Equipment None Reported. Allergies No known drug allergies Medications Name Sig Start Date Stop Date Status Note LastModified by Organization Details LastModified Time cyclobenza gilmar 10 mg tablet TAKE 1 TABLET BY MOUTH THREE TIMES DAILY active Not Available Not Available No t Available fluconazol e 100 mg tablet 07/31 completed Not Available Not Available Not Available bupropion HCl SR 150 mg tablet,12 hr sustained- release 10/18 completed Not Available Not Available Not Available neomycin-p olymyxin-h ydrocort 3.5 mg/mL-10,0 00 unit/mL-1 % ear solution INSTILL 4 DROPS IN THE LEFT EAR EVERY 8 HOURS FOR 7 DAYS 02/27 completed pt not taking 021 TL Not Available Not Available Not Available nystatin 100,000 unit/mL oral suspension SWISH AND SWALLOW 4 ML BY MOUTH FOUR TIMES DAILY FOR 14 DAYS active Not Available Not Available No t Available prednisone 10 mg tablet TAKE 4 TABLETS BY MOUTH DAILY FOR 5 DAYS active Not Available Not Available No t Available doxycyclin e hyclate 100 mg capsule TAKE 1 CAPSULE BY MOUTH TWICE DAILY FOR 7 DAYS active Not Available Not Available No t Available cefuroxime axetil 250 mg tablet 05/07 completed NO LONGER TAKING; AL 7 Not Available Not Available Not Available nicotine 14 mg/24 hr daily transderma l patch 10/18 completed Not Available Not Available Not Available albuterol sulfate 2.5 mg/3 mL (0.083 %) solution for nebulizati on USE 1 VIAL VIA NEBULIZE R FOUR TIMES DAILY active Not Available Not Available No t Available atorvastat in 10 mg tablet Take 1 tablet every day by oral route. 02/27 completed pt not taking 021 TL Not Available Not Available Not Available Tab-A-Baldemar tablet 07/31 completed Not Available Not Available Not Available azithromyc in 250 mg tablet TK 2 TS PO ON DAY 1, THEN TK 1 T PO D FOR 4 DAYS active pt is no longer taking 03/26/22 SA Not Available Not Available Not Available hydrocodon e 5 mg-acetami nophen 325 mg tablet TAKE 1 TABLET BY MOUTH EVERY 8 HOURS NEEDED FOR PAIN 09/28 completed pt is no longer taking 03/27/20 SA Not Available Not Available Not Available meloxicam 15 mg tablet 10/18 completed Not Available Not Available Not Available prednisone 20 mg tablet TAKE 1 TABLET BY MOUTH TWICE DAILY FOR 5 DAYS active Not Available Not Available No t Available alendronat e 70 mg tablet 07/31 completed Not Available Not Available Not Available Prilosec 20 mg capsule,de layed release Take 1 capsule as needed by oral route. 05/07 completed Not Available Not Available Not Available metronidaz ole 500 mg tablet 05/07 completed NO LONGER TAKING; AL 7 Not Available Not Available Not Available tramadol 50 mg tablet 10/18 completed Not Available Not Available Not Available bupropion HCl SR 100 mg tablet,12 hr sustained- release 05/07 completed NO LONGER TAKING; AL 7 Not Available Not Available Not Available acyclovir 800 mg tablet active Not Available Not Available Not Available meloxicam 7.5 mg tablet 01/22 completed NO LONGER TAKING; AL 7 Not Available Not Available Not Available oxycodone- acetaminop hen 5 mg-325 mg tablet TAKE 1 TABLET BY MOUTH EVERY 8 HOURS NEEDED FOR PAIN 09/28 completed pt is no longer taking 03/27/20 22 SA Not Available Not Available Not Available prednisolo ne acetate 1 % eye drops,susp ension bid 01/22 completed NO LONGER TAKING; AL 7 Not Available Not Available Not Available ropinirole 0.25 mg tablet 05/07 completed NO LONGER TAKING; AL 7 Not Available Not Available Not Available ciprofloxa josesito 0.3 % eye drops INSTIL 5 DROPS INTO THE LEFT EAR TWICE DAILY 09/28 completed Not Available Not Available Not Available pantoprazo le 40 mg tablet,del ayed release TAKE 1 TABLET BY MOUTH EVERY MORNING active Not Available Not Available No t Available cyanocobal moeller (vit B-12) 1,000 mcg/mL injection solution ADMINIST ER 1 ML UNDER THE SKIN EVERY WEEK active Not Available Not Available No t Available diclofenac 0.1 % eye drops qd 01/22 completed NO LONGER TAKING; AL 7 Not Available Not Available Not Available neomycin-p olymyxin-d exameth 3.5 mg/mL-10,0 00 unit/mL-0. 1% eye drops qd 01/22 completed NO LONGER TAKING; AL 7 Not Available Not Available Not Available tobramycin 0.3 % eye drops qd 05/07 completed NO LONGER TAKING; AL 7 Not Available Not Available Not Available ropinirole 0.5 mg tablet prn 05/07 completed NO LONGER TAKING; AL 7 Not Available Not Available Not Available prednisone 50 mg tablet active Not Available Not Available Not Available nicotine 21 mg/24 hr daily transderma l patch APPLY 1 PATCH TOPICALL Y TO THE SKIN EVERY MORNING active Not Available Not Available No t Available nitroglyce rin 0.[address] 1 tablet by sublingu al route. 02/27 completed pt not taking 021 TL Not Available Not Available Not Available diclofenac sodium 75 mg tablet,del ayed release TAKE 1 TABLET BY MOUTH TWICE DAILY active pt is no longer taking 03/26/23 SA Not Available Not Available Not Available amoxicilli n 250 mg capsule TAKE 1 CAPSULE BY MOUTH EVERY 8 HOURS 09/28 completed Not Available Not Available Not Available insulin syringe U-100 with needle 1 mL 31 gauge x /16 DIRECTED TO INJECT B12 ONCE A WEEK active Not Available Not Available No t Available ergocalcif liliya (vitamin D2) 1,250 mcg (50,000 unit) capsule TAKE 1 CAPSULE BY MOUTH EVERY WEEK active Not Available Not Available No t Available Aspir-81 mg tablet,del ayed release Take 1 tablet every day by oral route. 02/27 completed pt not taking 021 TL Not Available Not Available Not Available cefuroxime axetil 500 mg tablet 05/21 completed Not Available Not Available Not Available methylpred nisolone 4 mg tablets in a dose pack 05/25 completed Not Available Not Available Not Available albuterol sulfate HFA 90 mcg/actuat ion aerosol inhaler INHALE 2 PUFFS BY MOUTH EVERY 4 TO 6 HOURS NEEDED active Not Available Not Available No t Available diltiazem 30 mg tablet Take 1 tablet twice a day by oral route. 05/07 completed Not Available Not Available Not Available cefdinir 300 mg capsule TAKE 1 CAPSULE BY MOUTH EVERY 12 HOURS 09/28 completed Not Available Not Available Not Available sertraline 50 mg tablet 07/31 completed Not Available Not Available Not Available loratadine 10 mg tablet 10/18 completed Not Available Not Available Not Available gentamicin 0.1 % topical ointment 01/22 completed NO LONGER TAKING; AL 7 Not Available Not Available Not Available naproxen 500 mg tablet TAKE 1 TABLET BY MOUTH TWICE DAILY active Not Available Not Available No t Available diazepam 5 mg tablet TAKE 1/2 TABLET TWICE DAILY NEEDED FOR ANXIETY active Not Available Not Available No t Available amoxicilli n 875 mg-potassi um clavulanat e 125 mg tablet 05/21 completed NOT TAKING THIS MED;AL 8 Not Available Not Available Not Available amoxicilli n 500 mg-potassi um clavulanat e 125 mg tablet TAKE 1 TABLET BY MOUTH EVERY 12 HOURS FOR 10 DAYS DIRECTED 09/28 completed pt is no longer taking 03/27/20 22 SA Not Available Not Available Not Available Daily-Baldemar tablet 05/07 completed NO LONGER TAKING; AL 7 Not Available Not Available Not Available rosuvastat in 5 mg tablet TAKE 1 TABLET BY MOUTH EVERY DAY active Not Available Not Available No t Available Spiriva with HandiHaler 18 mcg and inhalation capsules USE 1 INHALATI ON BY MOUTH EVERY DAY active Not Available Not Available No t Available artificial tears (hypromell ose) 0.3 % eye gel Apply 1 drop every day by ophthalm ic route as directed . 11/05 completed Not Available Not Available Not Available nitrofuran toin monohydrat e/macrocry stals 100 mg capsule TAKE 1 CAPSULE BY MOUTH TWICE DAILY IN THE MORNING AND IN THE EVENING active Not Available Not Available No t Available Atrovent HFA 17 mcg/actuat ion aerosol inhaler 07/31 completed Not Available Not Available Not Available Ventolin HFA 2 puffs QID 11/05 completed Not Available Not Available Not Available Calcium 500 + D 02/02 completed Not Available Not Available Not Available Atrovent HFA 2 puffs prn 02/02 completed Not Available Not Available Not Available calcium 600 mg (as carbonate) -vitamin D3 10 mcg (400 unit) tablet active Not Available Not Available Not Available omeprazole 20 mg tablet,del ayed release 07/31 completed Not Available Not Available Not Available Dulera 100 mcg-5 mcg/actuat ion HFA aerosol inhaler INHALE 2 PUFFS BY MOUTH EVERY 12 HOURS active Not Available Not Available No t Available Breo Ellipta 1 puff qd 02/02 completed Not Available Not Available Not Available Incruse Ellipta 62.5 mcg/actuat ion powder for inhalation 02/27 completed pt not taking 021 TL Not Available Not Available Not Available Daily-Baldemar (with folic acid) 400 mcg tablet active Not Available Not Available N ot Available Vitals Date Recorded Body height Body mass index (BMI) Body weight Respiratory rate Oxygen saturation Oxygen saturation in Arterial blood by Pulse oximetry Heart rate Systolic blood pressure Diastolic blood pressure Provider Name and Address Organization Details Last Updated DateTime 1 154.94 cm 21.6 kg/m2 81964.3 3 g 18 /min 98 % 98 % 67 /min 114 mm[Hg] 60 mm[Hg] SHAHZAD CORNELIUS [facility] 1 11:37:54 Date Recorded Body height Body mass index (BMI) Body weight Heart rate Oxygen saturation Oxygen saturation in Arterial blood by Pulse oximetry Systolic blood pressure Diastolic blood pressure Provider Name and Address Organization Details Last Updated DateTime 2 154.94 cm 21 kg/m2 33096.4 7 g 78 /min 88 % 88 % 115 mm[Hg] 70 mm[Hg] ROMEO ARGUELLES [facility] 2 17:42:00 Date Recorded Body height Body mass index (BMI) Body weight Oxygen saturation Oxygen saturation in Arterial blood by Pulse oximetry Heart rate Systolic blood pressure Diastolic blood pressure Provider Name and Address Organization Details Last Updated DateTime 2 154.94 cm 19.8 kg/m2 65861.1 2 g 91 % 91 % 80 /min 92 mm[Hg] 58 mm[Hg] Galo Garcia i, MD [address] [place], [address], [facility] 2 16:30:02 Date Recorded Body height Body mass index (BMI) Body weight Heart rate Respiratory rate Oxygen saturation Oxygen saturation in Arterial blood by Pulse oximetry Systolic blood pressure Diastolic blood pressure Provider Name and Address Organization Details Last Updated DateTime 3 154.94 cm 19.3 kg/m2 16593.4 2 g 61 /min 18 /min 94 % 94 % 118 mm[Hg] 68 mm[Hg] Daryl Vinson [facility] 3 12:08:44 Date Recorded Body height Body mass index (BMI) Body weight Oxygen saturation Oxygen saturation in Arterial blood by Pulse oximetry Heart rate Systolic blood pressure Diastolic blood pressure Provider Name and Address Organization Details Last Updated DateTime 3 154.94 cm 18.7 kg/m2 33420.9 3 g 94 % 94 % 67 /min 100 mm[Hg] 64 mm[Hg] LEIA GENAO [facility] 3 12:55:15 Social History Question Answer Notes LastModified by Organizat Pre[employer] Details LastModified Time Tobacco Smoking Status Current Every Day Smoker Grace Parislilia frankel [facility] 02/01/2016 16:49:01 What Is Your Level Of Alcohol Consumption? None Information not available 05/04/2019 What Is Your Level Of Caffeine Consumption? Occasional [email or web address] Information not available 05/04/2019 How Much Tobacco Do You Chew? None [email or web address] Information not available 05/04/2019 What Type Of Diet Are You Following? REGULAR Information not available 05/04/2019 Which Illicit Or Recreational Drugs Have You Used? None [email or web address] Information not available 05/04/2019 Do You Or Have You Ever Used E-cigarettes Or Vape? Never Used Electronic Cigarettes [email or web address] Information not available 05/04/2019 Live Alone Or With Others? With Others [email or web address] Information not available 05/04/2019 Marital Status Unknown [email or web address] Informatio n not available 05/04/2019 What Was The Date Of Your Most Recent Tobacco Screening? 04/22/2018 Information not available 03/05/2019 Do You Or Have You Ever Used Smokeless Tobacco? Never Used Smokeless Tobacco [email or web address] Information not available 05/04/2019 General Stress Level Medium [email or web address] Information not available 05/04/2019 Sex: Unknown Functional Status Question Answer Note LastModified by Organizat [employer] Details LastModified Time What is your exercise level? Occasional [email or web address] Information not available 05/04/2019 Mental Status None recorded. Family History Relationship Description Onset Age of this Age Resolved Age Notes LastModified by Organization Details LastModified Time Mother Essential hypertension [email or web address] Not available 16:48:13 Brother Brother heart diseas e and a myocar dial infarc tion age 50's, lung Cancer . [email or web address] Not available 02/01/2016 16:49:00 Medical History Condition Response Thyroid Disease Y Depression Y COPD Y GERD/Reflux Y Gynecological HistoryNo gynecological history recorded. Obstetrics History GPAL:G 0 P 0 0 0 0 Past Encounters Encounter ID Performer Location Encounter Start Date Encounter Closed Date Diagnosis/Indication Diagnosis SNOMED-CT Code Diagnosis ICD10 Code Diagnosis Note [id number] Galo Osei MD [place] [facility] [place] [address] 02/03/2016 10:39:44 02/03/2016 11:36:32 Atypical chest pain 100855851 R07.89 Resolved Dyslipidemia 626778322 E 78.5 Needs to keep LDL less than 70, and HDL more than 40 [id number] Galo Osei MD [place] OFF[facility] [address] [place] [address] 07/31/2016 11:36:02 07/31/2016 15:33:12 Benign essential hypertension 2193044 I10 Dyslipidemia 464689636 E 78.5 Needs to keep LDL less than 70, and HDL more than 40 Atypical chest pain 1025 64097 R07.89 Treadmill Myoview Stress test, has high Patterson Risk score. Has Known CAD, or CAD risk equivalent . To look for any ischemia. Smokes tobacco daily 449 427940 Z72.0 Advised to quit, patient is trying [id number] Galo Osei MD [facility] [facility] [address] [place] [phone] 01/22/2017 10:41:37 01/22/2017 15:12:29 Benign essential hypertension 3549364 I10 Stable Atypical chest pain 1025 07382 R07.89 Treadmill Myoview Stress test was negative Dyslipidemia 765258502 E 78.5 Needs to keep LDL less than 70, and HDL more than 40 Smokes tobacco daily 449 296016 Z72.0 Advised to quit, patient is trying Palpitations 33759156 R0 0.2 Will try on Low dose Cardizem Peripheral arterial occlusive disease 526108193 I73.9 Duplex arterial doppler [id number] Galo Osei MD [facility] [address] [place] [address] 05/07/2017 10:32:37 05/07/2017 14:31:33 Benign essential hypertension 1734565 I10 Stable Atypical chest pain 1025 21945 R07.89 Treadmill Myoview Stress test ( )was negative Dyslipidemia 503174987 E 78.5 Needs to keep LDL less than 70, and HDL more than 40 03-15-2016 LDL:83 Smokes tobacco daily 449 783706 Z72.0 Advised to quit, patient is trying 1/2 PPD Palpitations 31982844 R0 0.2 on Low dose Cardizem Peripheral arterial occlusive disease 798644909 I73.9 Duplex arterial doppler with mild PVD [id number] Galo Osei MD [facility] [address] [place] [address] 11/05/2017 11:25:04 11/05/2017 16:41:05 Benign essential hypertension 1569372 I10 Stable Atypical chest pain 1025 83963 R07.89 Treadmill Myoview Stress test, has high Patterson Risk score. Has Known CAD, or CAD risk equivalent . To look for any ischemia. Dyslipidemia 088230415 E 78.5 Needs to keep LDL less than 70, and HDL more than 40 03-15-2016 LDL:83 Will get repeat lipids prior to next visit. Smokes tobacco daily 449 144995 Z72.0 Advised to quit, patient is trying 1/2 PPD Peripheral arterial occlusive disease 926164905 I73.9 Duplex arterial doppler with mild PVD [id number] Galo Osei MD [facility] Office [address] [place] [address] 12/02/2017 12:22:20 12/02/2017 15:04:18 Benign essential hypertension 9176903 I10 Well controlled Atypical chest pain 1025 03280 R07.89 Had positive stress test for ischemia 11/13/17.S he reports having a 2 C in 2008, and 2010. No stents were placed.Tma l arrange for cardiac CTA if insurance will approve. Otherwise will plan for LHC.On ASA Dyslipidemia 469687281 E 78.5 Needs to keep LDL less than 70, and HDL more than 40 LDL 105 11/11/17 Will start Atorvastat in 10. Smokes tobacco daily 449 128368 Z72.0 Advised to quit, patient is trying 1/2 PPD Peripheral arterial occlusive disease 387608970 I73.9 Duplex arterial doppler with mild PVD.Denies leg pain with walkingCon tinue maximal medical treatment and risk factor modificati onOn ASA and Statin [id number] Galo Osei MD [facility] [address] [place] [address] 04/22/2018 12:14:27 04/22/2018 14:02:54 Dyslipidemia 081967222 E78.5 Needs to keep LDL less than 70, and HDL more than 40 LDL 105 11/11/17 On Atorvastat in 10mg Chest pain 79101935 R07. 9 Had chest pain went to [place] ER, negative troponins, CXR and EKG showed no acute ST-T wave changes. Had positive stress test on 11/13/17. Had Cardiac CTA on 03/31/18 showing mild CAD with < 25 stenosis to LAD and LCX. Normal LV function.P RN NTG Benign ess ential hypertension 5439589 I10 Well controlled Peripheral arterial occlusive disease 145327695 I73.9 Duplex arterial doppler with mild PVD. Denies leg pain with walking Continue maximal medical treatment and risk factor modificati on On ASA and Statin Smokes tobacco daily 449 793412 Z72.0 Advised to quit, patient is trying 1/2 PPD [id number] [facility] [address] [place] [address] 05/04/2019 15:33:28 05/04/2019 15:55:59 Chest pain 02869110 R07.9 Had chest pain went to [place] ER, negative troponins, CXR and EKG showed no acute ST-T wave changes. Had positive stress test on 11/13/17. The patient will be scheduled for left heart catheteriz ation, with coronary angiogram, and possible PTCA/Stent . The procedure was discussed with the patient, and risks, benefits, and alternativ e options were explained. The patient was given informatio n about heart catheteriz ation and interventi onal procedures . The patient agrees to proceed. Benign ess ential hypertension 2368797 I10 Well controlled Dyslipidemia 643925842 E 78.5 Needs to keep LDL less than 70, and HDL more than 40 LDL 105 11/11/17 Peripheral arterial occlusive disease 809787896 I73.9 Duplex arterial doppler with mild PVD. Denies leg pain with walking Continue maximal medical treatment and risk factor modificati on On ASA and Statin Smokes tobacco daily 449 810064 Z72.0 Advised to quit, patient is trying 1/2 PPD [id number] Galo Osei MD [facility] Office [address] [place] [address] 05/25/2019 14:36:17 05/25/2019 15:59:40 Chest pain [id number] R07.9 Had chest pain went to [place] [facility], negative troponins, CXR and EKG showed no acute ST-T wave changes. Cath with no significan t Coronary Artery Disease Benign ess ential hypertension [id number] I10 Well controlled Dyslipidemia [id number] E 78.5 Needs to keep LDL less than 70, and HDL more than 40 LDL 105 11/11/17 Peripheral arterial occlusive disease [id number] I73.9 Duplex arterial doppler with mild PVD. Denies leg pain with walking Continue maximal medical treatment and risk factor modificati on On ASA and Statin Smokes tobacco daily [phone] [id number] Z72.0 Advised to quit, patient is trying 1/2 PPD [id number] Galo Osei MD [place] Office [facility] [place] [address] 10/19/2019 13:49:13 10/20/2019 13:24:49 Chest pain [id number] R07.9 Had chest pain went to [place] [facility], negative troponins, CXR and EKG showed no acute ST-T wave changes. Cath with no significan t Coronary Artery DiseasePRN NTG Benign ess ential hypertension [id number] I10 Well controlled Dyslipidemia 397421312 E 78.5 Needs to keep LDL less than 70, and HDL more than 40 LDL 105 11/11/17 Peripheral arterial occlusive disease [id number] I73.9 Duplex arterial doppler with mild PVD. Denies leg pain with walking Continue maximal medical treatment and risk factor modificati on On ASA and Statin Smokes tobacco daily [phone] Z72.0 Advised to quit, patient is trying 1/2 PPD [id number] Clair Bermudez [facility]- [place] Office [address] [place] [address] 02/27/2021 11:24:12 02/27/2021 12:39:40 Chest pain [id number] R07.9 ResolvedLH C 05/18/2019 : No significan t CAD Benign ess ential hypertension 9862007 I10 Well controlled without antihypert ensive therapy Dyslipidemia 279225447 E 78.5 Needs to keep LDL less than 100, and HDL more than 40. 019 LDL 50She self-stopp ed atorvastat in.Will get fasting lipids for follow-up Peripheral arterial occlusive disease [id number] I73.9 Now asymptomat icArterial duplex 01/29/2017 : No significan t lower extremity peripheral arterial disease detected. Smokes tobacco daily 449 [id number] Z72.0 Cessation highly advised Preoperati ve cardiovascular examination [id number] Z01.810 There is no cardiac contraindi cation for the procedure. The planned procedure would be within acceptable risk. 22188 Galo Osei MD [place] [facility] [address] [place] [address] 10/03/2021 17:31:17 10/03/2021 18:02:18 Chest pain [id number] R07.9 Obtain echo to evaluate for structural /functiona l disease. Benign ess ential hypertension 3419102 I10 Well controlled without antihypert ensive therapyObt ain echo to evaluate for structural /functiona l disease. Dyslipidemia 331245478 E 78.5 Needs to keep LDL less than 100, and HDL more than 40. 019 LDL 50She self-stopp ed atorvastat in.Will get fasting lipids for follow-up Peripheral arterial occlusive disease 293632711 I73.9 Now asymptomat icArterial duplex 01/29/2017 : No significan t lower extremity peripheral arterial disease detected. Smokes tobacco daily [phone] Z72.0 Cessation highly advised Preoperati ve cardiovascular examination [id number] Z01.810 There is no cardiac contraindi cation for the procedure. The planned procedure would be within acceptable risk. 52868 Galo Osei MD [facility] [address] [place] [address] 03/27/2022 16:02:16 03/27/2022 17:10:41 Chest pain 71169412 R07.9 (10/16/21) ECHOStudy quality: Technicall y difficult. Technical limitation s- poor acoustic window, COPD. LV chamber size is normal. LV wall thickness is normal. The estimated left ventricle ejection fraction is 55-60% (normal). Normal left atrial pressure and diastolic function. The mitral valve leaflet is mildly thickened. There is a dense posterior mitral annular calcificat ion. There is trace triscupid regurgitat ion. Benign ess ential hypertension 9237237 I10 Well controlled without antihypert ensive therapy (10/16/21) ECHOStudy quality: Technicall y difficult. Technical limitation s- poor acoustic window, COPD. LV chamber size is normal. LV wall thickness is normal. The estimated left ventricle ejection fraction is 55-60% (normal). Normal left atrial pressure and diastolic function. The mitral valve leaflet is mildly thickened. There is a dense posterior mitral annular calcificat ion. There is trace triscupid regurgitat ion. Dyslipidemia 448000465 E 78.5 Needs to keep LDL less than 100, and HDL more than 40.2021 LDL 101She self-stopp ed atorvastat in.start crestor 5 mg daily Will get fasting lipids for follow-up Peripheral arterial occlusive disease 629060445 I73.9 Now asymptomat icArterial duplex 01/29/2017 : No significan t lower extremity peripheral arterial disease detected. Smokes tobacco daily [phone] Z72.0 Cessation highly advised Preoperati ve cardiovascular examination 242185236 Z01.810 There is no cardiac contraindi cation for the procedure. The planned procedure would be within acceptable risk. 14583 Soledad Mcclain [facility] [address] [place] [address] 09/28/2022 11:52:14 09/28/2022 12:27:13 Chest pain 90799631 R07.9 (10/16/21) ECHOStudy quality: Technicall y difficult. Technical limitation s- poor acoustic window, COPD. LV chamber size is normal. LV wall thickness is normal. The estimated left ventricle ejection fraction is 55-60% (normal). Normal left atrial pressure and diastolic function. The mitral valve leaflet is mildly thickened. There is a dense posterior mitral annular calcificat ion. There is trace triscupid regurgitat ion. Benign ess ential hypertension 9020971 I10 Well controlled without antihypert ensive therapy (10/16/21) ECHOStudy quality: Technicall y difficult. Technical limitation s- poor acoustic window, COPD. LV chamber size is normal. LV wall thickness is normal. The estimated left ventricle ejection fraction is 55-60% (normal). Normal left atrial pressure and diastolic function. The mitral valve leaflet is mildly thickened. There is a dense posterior mitral annular calcificat ion. There is trace triscupid regurgitat ion. Dyslipidemia 746704512 E 78.5 Needs to keep LDL less than 100, and HDL more than 40.2021 LDL 101She self-stopp ed atorvastat in.start crestor 5 mg daily Will get fasting lipids for follow-up Peripheral arterial occlusive disease 413066593 I73.9 Now asymptomat icArterial duplex 01/29/2017 : No significan t lower extremity peripheral arterial disease detected. Smokes tobacco daily 449 [id number] Z72.0 Cessation highly advised Preoperati ve cardiovascular examination [id number] Z01.810 There is no cardiac contraindi cation for the procedure. The planned procedure would be within acceptable risk. 24005 Galo Osei MD [facility] [address] [place] [address] 03/26/2023 12:34:49 03/26/2023 13:09:56 Chest pain 01392878 R07.9 (10/16/21) ECHO Study quality: Technicall y difficult. Technical limitation s- poor acoustic window, COPD. LV chamber size is normal. LV wall thickness is normal. The estimated left ventricle ejection fraction is 55-60% (normal). Normal left atrial pressure and diastolic function. The mitral valve leaflet is mildly thickened. There is a dense posterior mitral annular calcificat ion. There is trace triscupid regurgitat ion. Benign ess ential hypertension 0215006 I10 Well controlled without antihypert ensive therapy (10/16/21) ECHO Study quality: Technicall y difficult. Technical limitation s- poor acoustic window, COPD. LV chamber size is normal. LV wall thickness is normal. The estimated left ventricle ejection fraction is 55-60% (normal). Normal left atrial pressure and diastolic function. The mitral valve leaflet is mildly thickened. There is a dense posterior mitral annular calcificat ion. There is trace triscupid regurgitat ion. Dyslipidemia 380065183 E 78.5 Needs to keep LDL less than 100, and HDL more than 40.2021 LDL 101She self-stopp ed atorvastat in and crestor Will get fasting lipids for follow-up Peripheral arterial occlusive disease 819854170 I73.9 Now asymptomat icArterial duplex 01/29/2017 : No significan t lower extremity peripheral arterial disease detected. Smokes tobacco daily [phone] Z72.0 Cessation highly advised Preoperati ve cardiovascular examination [id number] Z01.810 There is no cardiac contraindi cation for the procedure. The planned procedure would be within acceptable risk. Health Concerns Section Related Observation LastModified by Organization Detai ls LastModified Time None Recorded Concern Status LastModified by Organization Details LastModified Time None Recorded Advance Directives Directive None Recorded Payers Encounter Date Sequence Insurance Name Policy Number Policy Felipe Covered Member ID Felipe Member ID Guarantor Name 02/27/2021 1 [facility] PRIOR TO 02/09/2021 (MEDICAID REPLACEMENT - HMO) Liset M Ze [id number] 10/03/2021 1 [facility] ON OR AFTER 02/09/21 (MEDICAID REPLACEMENT - HMO) Liset Jacek Ze [id number] 10/03/2021 1 [facility] PRIOR TO 02/09/2021 (MEDICAID REPLACEMENT - HMO) Liset Kunz [id number] 03/27/2022 1 [facility] ON OR AFTER 02/09/21 (MEDICAID REPLACEMENT - HMO) Liset Jacek Kunz [id number] 09/28/2022 1 [facility] ON OR AFTER 02/09/21 (MEDICAID REPLACEMENT - HMO) Liset Kunz [id number] 03/26/2023 1 [facility] ON OR AFTER 02/09/21 (MEDICAID REPLACEMENT - HMO) Liset Jacek Ze [id number] Notes Date Note Type Note Provider Name and Address Organization Details Recorded Time 02/27/2021 text/html 02/27/2021 CC: Cardiac clearance 60-year-old white woman with h/o dyslipidemia, mild PVD, chronic obstructive pulmonary disease, tobacco dependence, GERD, anxiety, and depression is here for cardiac clearance. She was last seen in clinic on 05/25/2019. Since then she reports feeling well with no new complaints. She has stable dyspnea on exertion. She follows with Dr. Pizarro with pulmonary. She wears 2 L NC PRN and at night. She denies ER visits and hospitalizations since she was last seen. She continues to smoke 1/2 PPD. She is scheduled to have foot surgery on Saturday03/03/2021 for a bunyon removal. Has been active but not exercising. Denies chest pain. Denies shortness of breath at rest. No orthopnea. No PND. Denies heart palpitations. Denies dizziness. Denies syncope or near syncope. No ankle or leg edema. No major bleeding events. No reported side effects from medications. Taking medications as prescribed with no missed doses. Denies snoring, daytime somnolence and AM headache. Had LHC 05/14/2019 No significant CAD. Mid and distal LAD myocardial bridging, mild to moderate. Normal LVSF CMP 05/12/2019 NA 139 K 3.7 CH 105 CO2 24 GK 93 BUN 10 CR >60 CA 9.6 AST 37 ALT 49 ALK PH 90 LIPID 05/12/2019 CH 92 TR 75 LDL 50 HDL 33 CBC 05/12/2019 WBC 5.5 RBC 4.22 HGB 14.1 HCT 42.5 PLT 122 Results from this visit, or from the past: LIPID 05/12/2019 CH 92 TR 75 LDL 50 HDL 33 05/12/2019 NA 139 K 3.7 CH 105 CO2 24 GK 93 BUN 10 CR >60 CA 9.6 AST 37 ALT 49 ALK PH 90 05/12/2019 WBC 5.5 RBC 4.22 HGB 14.1 HCT 42.5 PLT 122 04/30/19: NA 138 ,K 3.7, CL 105 ,CO2 28, GLU 90, BUN 14, CR 0.80, 01/29/19: TC 162 ,TG 63 ,HDL 68 ,LDL 81,AST 17 ,ALT 20 11/11/17 CMP: SOD 146, K 4.4, CL 104, CO2 28, GL 94, BUN 16, CR 0.80, AST 17, ALT 23; s 11/11/17 Lipid: TR 77, TC 202, LDL 105, HDL 62; sm 05/17/2017: WBC 6.1, HGB 16.5, HCT 51.1, PLT 159 05/16/16: NA:144, K:4.3, CL:105, CO2:29, GLU:123, BUN:12, CR:0.80, AST:27, ALT:24 03/15/16: NA:144, K: 4.0, CL:104, CO2:31, GLU:88, BUN:12, CR:0.80, AST:19, ALT:20 03/15/16: TC:176, TR:73, LDL:83, HDL:75 01/10/16: Na 140 ,K 4.6 ,CL 101 ,CO2 19.1 ,GLU 63 ,BUN 16 ,CR 0.74 ,HB 16.1,HT 51 ,AST 14 ,ALT 14 08/24/15: Na 138 ,K 3.4 ,CL 106 ,CO2 26 ,GLU 111 ,BUN 12 ,CR 0.70 10/19/19 EKG- Prob AFIB. Low Volt., Poor R progression in chst lds. Anteroseptal myocardial infarction. EKG 05/04/19: RBBB. Otherwise normal limits EKG 11/05/17 : RBBB EKG 01/22/17: RBBB. Inverted T wave in aVL EKG 07/31/17: sinus rhythm slow. P: normal. QRS: vertical axis. consider EVH. R >0.15mV in V1. R/S > 1 in V1. incomplete RBBB. QRS= 128ms. RSR' in V1 V2. R'>R in V1. ST-T: normal. Conclusion: possibly abnormal ECG EK01/10/16 sinus rhythm (slow). vertical axis consider RVH. R > 0.5 ms in V1 R/S > in V1 Incomplete RBBB. QRS = 126 ms. RSR' in V1 R' > in V1. borderline ECG. EK04/26/15 Sinus rhythm , IRBBB, NSST changes Echo 04/16/2019 LV chamber dimension is normal. LVSF is normal, estimated at 60-65%. The LV diastolic function is grade I diastolic dysfunction. E/E 7 is not elevated. No pulmonary HTN, estimated pulmonary arterial systolic pressure is 32 mmHg 03/12/19 LDCT LUNG CANCER: Lung- RADS category 2, benign appearance or behavior(<1% chance of malignancy). Recommend continued LDCT screening in 1 year. US, Duplex, Arterial, Lower Extremity 01/29/17 : No significant lower extremity peripheral arterial disease detected. Treadmill Nuclear Stress Test 11/13/17 : Positive stress test. Normal LV systolic function. Reversible defect consistent with ischemia in apical area. Compared to last study in 08/28, ischemia is new. Exercise tolerance is poor. LVEF 66%. Treadmill Nuclear Stress Test 08/22/16 : Negative stress test for ischemia. Normal LV systolic function. No previous study to compare. Exercise tolerance is below average. Submaximal exercise stress test. The sensitivity of the test is reduced by the inability to achieve target heart rate. LVEF 61%. US, Duplex, Arterial, Lower Extremity 01/29/17 : No significant lower extremity peripheral arterial disease detected. Clairlavinia Bermudez [employer]IST-[facility], [place] - [facility] 02/27/2021 14:51:51 10/03/2021 text/html 08/22/21CC : Car diac follow up, chest [id number] white woman with h/o dyslipidemia, mild PVD, chronic obstructive pulmonary disease, tobacco dependence, GERD, anxiety, and depression is here for 6 month follow up. She was last seen in the clinic on 02/27/21, since then she get exetional chest painShe denies ER visits and hospitalizations since she was last seen. Denies shortness of breath at rest. Has mild dyspnea on exertion.No orthopnea. No PNDs.Denies heart palpitations.Denies dizziness. Denies syncope or near syncope.No ankle or leg edema.No major bleeding events.No reported side effects from medications. Taking medications as prescribed with no missed doses.Denies snoring, daytime somnolence and AM headache.*Last LDL was 50 done on 05/11/19 .Pt dose not takes any statins. Previously :She has stable dyspnea on exertion. She follows with Dr. Pizarro with pulmonary. She wears 2 L NC PRN and at night. She continues to smoke 1/2 PPD. She is scheduled to have foot surgery on Saturday03/03/2021 for a bunyon removal. *Had LHC 05/14/2019 No significant CAD. Mid and distal LAD myocardial bridging, mild to moderate. Normal LVSF CMP 05/12/2019 NA 139 K 3.7 CH 105 CO2 24 GK 93 BUN 10 CR >60 CA 9.6 AST 37 ALT 49 ALK PH 90 LIPID 05/12/2019 CH 92 TR 75 LDL 50 HDL 33 CBC 05/12/2019 WBC 5.5 RBC 4.22 HGB 14.1 HCT 42.5 PLT 122 Results from this visit, or from the past:LIPID 05/12/2019 CH 92 TR 75 LDL 50 HDL 331 NA 139 K 3.7 CH 105 CO2 24 GK 93 BUN 10 CR >60 CA 9.6 AST 37 ALT 49 ALK PH 9005/12/2019 WBC 5.5 RBC 4.22 HGB 14.1 HCT 42.5 PLT 5033304/30/19: NA 138 ,K 3.7, CL 105 ,CO2 28, GLU 90, BUN 14, CR 0.80,01/29/19: TC 162 ,TG 63 ,HDL 68 ,LDL 81,AST 17 ,ALT 204 CMP: SOD 146, K 4.4, CL 104, CO2 28, GL 94, BUN 16, CR 0.80, AST 17, ALT 23; 11/11/17 Lipid: TR 77, TC 202, LDL 105, HDL 62; sm 05/17/2017: WBC 6.1, HGB 16.5, HCT 51.1, PLT 159 05/16/16: NA:144, K:4.3, CL:105, CO2:29, GLU:123, BUN:12, CR:0.80, AST:27, ALT:24 03/15/16: NA:144, K: 4.0, CL:104, CO2:31, GLU:88, BUN:12, CR:0.80, AST:19, ALT:208: TC:176, TR:73, LDL:83, HDL:75 01/10/16: Na 140 ,K 4.6 ,CL 101 ,CO2 19.1 ,GLU 63 ,BUN 16 ,CR 0.74 ,HB 16.1,HT 51 ,AST 14 ,ALT 14 08/24/15: Na 138 ,K 3.4 ,CL 106 ,CO2 26 ,GLU 111 ,BUN 12 ,CR 0.70 10/19/19 EKG- Prob AFIB. Low Volt., Poor R progression in chst lds. Anteroseptal myocardial infarction. EKG 05/04/19: RBBB. Otherwise normal limits EKG 11/05/17 : RBBB EKG 01/22/17: RBBB. Inverted T wave in aVLEKG 07/31/17: sinus rhythm slow. P: normal. QRS: vertical axis. consider EVH. R >0.15mV in V1. R/S > 1 in V1. incomplete RBBB. QRS= 128ms. RSR' in V1 V2. R'>R in V1. ST-T: normal. Conclusion: possibly abnormal ECG EK01/10/16 sinus rhythm (slow). vertical axis consider RVH. R > 0.5 ms in V1 R/S > in V1 Incomplete RBBB. QRS = 126 ms. RSR' in V1 R' > in V1. borderline ECG. EK04/26/15 Sinus rhythm , IRBBB, NSST changes Echo 04/16/2019 LV chamber dimension is normal. LVSF is normal, estimated at 60-65%. The LV diastolic function is grade I diastolic dysfunction. E/E 7 is not elevated. No pulmonary HTN, estimated pulmonary arterial systolic pressure is 32 mmHg 03/12/19 LDCT LUNG CANCER: Lung- RADS category 2, benign appearance or behavior(<1% chance of malignancy). Recommend continued LDCT screening in 1 year. US,Duplex, Arterial, Lower Extremity 01/29/17 : No significant lower extremity peripheral arterial disease detected. Treadmill Nuclear Stress Test 11/13/17 : Positive stress test. Normal LV systolic function. Reversible defect consistent with ischemia in apical area. Compared to last study in 08/28, ischemia is new. Exercise tolerance is poor. LVEF 66%. Treadmill Nuclear Stress Test 08/22/16 : Negative stress test for ischemia. Normal LV systolic function. No previous study to compare. Exercise tolerance is below average. Submaximal exercise stress test. The sensitivity of the test is reduced by the inability to achieve target heart rate. LVEF 61%. US, Duplex, Arterial, Lower Extremity 01/29/17 : No significant lower extremity peripheral arterial disease detected. Galo Osei MD [address] [place], [address], [facility] - [facility] 10/03/2021 17:54:18 03/27/2022 text/html 03/27/22CC : Car dia follow up hypertension and chest [id number] white woman with h/o dyslipidemia, CAD mild ( CTA 2018)mild PVD, chronic obstructive pulmonary disease, tobacco dependence, GERD, anxiety, and depression is here for 6 month follow up with ECHO and labs results. She was last seen in the clinic on 10/03/21, since then she is doing well. She still have chest pain and dyspnea on exertion. Her chest pain is the same over the years. She still smoke about half a pack a day for the last 30 years. She had a flair up for her COPD recently and finished antibiotics and steriod course. Her last ECho showed EF of 55% The mitral valve leaflet is mildly thickened. There is a dense posterior mitral annular calcification. There is trace triscupid regurgitation. She sleep with 2 L of oxygen. *Last LDL was 101 done on 10/10/21 .Pt dose not takes any statins. She denies ER visits and hospitalizations since she was last seen. Today reports:Denies chest pain.Yes shortness of breath at rest. Has mild to moderate dyspnea on exertion.No orthopnea. No PNDs.Denies heart palpitations.Denies dizziness. Denies syncope or near syncope.No ankle or leg edema.No major bleeding events.No reported side effects from medications. Taking medications as prescribed with no missed doses.Denies snoring, daytime somnolence and AM headache.*Last LDL was 101 done on 10/10/21 .Pt dose not takes any statins. *Had ECHO done on 10/16/21 showed LV chamber size is normal. LV wall thickness is normal. The estimated left ventricle ejection fraction is 55-60% (normal). Normal left atrial pressure and diastolic function. The mitral valve leaflet is mildly thickened. There is a dense posterior mitral annular calcification. There is trace triscupid regurgitation. (10/10/21) CMP- NA 139 K 4.3 CL 106 CR 0.80 GL 90 CA 9.0 AST 23 ALT 15 CK 80 ALK PHOS 60,TSH-0.597LIPID( 09/02)- TRIG 75 CHOL 210 LDL 101 HDL 72 Previously:She get exertional chest pain She has stable dyspnea on exertion. She follows with Dr. Pizarro with pulmonary. She wears 2 L NC PRN and at night. She continues to smoke 1/2 PPD. She is scheduled to have foot surgery on Saturday03/03/2021 for a bunyon removal. *Had LHC 05/14/2019 No significant CAD. Mid and distal LAD myocardial bridging, mild to moderate. Normal LVSF Results from this visit, or from the past:LIPID 05/12/2019 CH 92 TR 75 LDL 50 HDL 331 NA 139 K 3.7 CH 105 CO2 24 GK 93 BUN 10 CR >60 CA 9.6 AST 37 ALT 49 ALK PH 9005/12/2019 WBC 5.5 RBC 4.22 HGB 14.1 HCT 42.5 PLT 82579: NA 138 ,K 3.7, CL 105 ,CO2 28, GLU 90, BUN 14, CR 0.80,01/29/19: TC 162 ,TG 63 ,HDL 68 ,LDL 81,AST 17 ,ALT 204 CMP: SOD 146, K 4.4, CL 104, CO2 28, GL 94, BUN 16, CR 0.80, AST 17, ALT 23; s4 Lipid: TR 77, TC 202, LDL 105, HDL 62; sm 05/17/2017: WBC 6.1, HGB 16.5, HCT 51.1, PLT 159 05/16/16: NA:144, K:4.3, CL:105, CO2:29, GLU:123, BUN:12, CR:0.80, AST:27, ALT:24 03/15/16: NA:144, K: 4.0, CL:104, CO2:31, GLU:88, BUN:12, CR:0.80, AST:19, ALT:208: TC:176, TR:73, LDL:83, HDL:75 01/10/16: Na 140 ,K 4.6 ,CL 101 ,CO2 19.1 ,GLU 63 ,BUN 16 ,CR 0.74 ,HB 16.1,HT 51 ,AST 14 ,ALT 14 08/24/15: Na 138 ,K 3.4 ,CL 106 ,CO2 26 ,GLU 111 ,BUN 12 ,CR 0.70 10/19/19 EKG- Prob AFIB. Low Volt., Poor R progression in chst lds. Anteroseptal myocardial infarction. EKG 05/04/19: RBBB. Otherwise normal limits EKG 11/05/17 : RBBB EKG 01/22/17: RBBB. Inverted T wave in aVLEKG 07/31/17: sinus rhythm slow. P: normal. QRS: vertical axis. consider EVH. R >0.15mV in V1. R/S > 1 in V1. incomplete RBBB. QRS= 128ms. RSR' in V1 V2. R'>R in V1. ST-T: normal. Conclusion: possibly abnormal ECG EK/31/16 sinus rhythm (slow). vertical axis consider RVH. R > 0.5 ms in V1 R/S > in V1 Incomplete RBBB. QRS = 126 ms. RSR' in V1 R' > in V1. borderline ECG. EK04/26/15 Sinus rhythm , IRBBB, NSST changes Echo 04/16/2019 LV chamber dimension is normal. LVSF is normal, estimated at 60-65%. The LV diastolic function is grade I diastolic dysfunction. E/E 7 is not elevated. No pulmonary HTN, estimated pulmonary arterial systolic pressure is 32 mmHg 03/12/19 LDCT LUNG CANCER: Lung- RADS category 2, benign appearance or behavior(<1% chance of malignancy). Recommend continued LDCT screening in 1 year. US,Duplex, Arterial, Lower Extremity 01/29/17 : No significant lower extremity peripheral arterial disease detected. Treadmill Nuclear Stress Test 11/13/17 : Positive stress test. Normal LV systolic function. Reversible defect consistent with ischemia in apical area. Compared to last study in 08/28, ischemia is new. Exercise tolerance is poor. LVEF 66%. Treadmill Nuclear Stress Test 08/22/16 : Negative stress test for ischemia. Normal LV systolic function. No previous study to compare. Exercise tolerance is below average. Submaximal exercise stress test. The sensitivity of the test is reduced by the inability to achieve target heart rate. LVEF 61%. US, Duplex, Arterial, Lower Extremity 01/29/17 : No significant lower extremity peripheral arterial disease detected. Galo Osei MD [address] [place], [address], [facility] - [facility] 04/22/2022 19:12:33 09/28/2022 text/html 09/28/22CC : [facility] [id number] white woman with h/o dyslipidemia, CAD mild ( CTA 2018)mild PVD, chronic obstructive pulmonary disease, tobacco dependence, GERD, anxiety, and depression is here for 6 month follow up. He was last seen in the clinic on 03/27/22, since then heHe denies ER visits and hospitalizations since he was last seen. Today reports:Denies chest pain.Denies shortness of breath at rest. Has mild dyspnea on exertion.No orthopnea. No PNDs.Denies heart palpitations.Denies dizziness. Denies syncope or near syncope.No ankle or leg edema.No major bleeding events.No reported side effects from medications. Taking medications as prescribed with no missed doses.Denies snoring, daytime somnolence and AM headache.*Last LDL was 101 done on 10/10/21, Pt takes rosuvastatin 5 mg. Previously:She still have chest pain and dyspnea on exertion.Her chest pain is the same over the years.She still smoke about half a pack a day for the last 30 years.She had a flair up for her COPD recently and finished antibiotics and steriod course. Her last Echo showed EF of 55% The mitral valve leaflet is mildly thickened. There is a dense posterior mitral annular calcification. There is trace triscupid regurgitation. She sleep with 2 L of oxygen. Had shortness of breath at rest. Has mild to moderate dyspnea on exertion. *Had ECHO done on 10/16/21 showed LV chamber size is normal. LV wall thickness is normal. The estimated left ventricle ejection fraction is 55-60% (normal). Normal left atrial pressure and diastolic function. The mitral valve leaflet is mildly thickened. There is a dense posterior mitral annular calcification. There is trace triscupid regurgitation. (10/10/21) CMP- NA 139 K 4.3 CL 106 CR 0.80 GL 90 CA 9.0 AST 23 ALT 15 CK 80 ALK PHOS 60,TSH-0.597LIPID( 09/02)- TRIG 75 CHOL 210 LDL 101 HDL 72 She get exertional chest pain She has stable dyspnea on exertion. She follows with Dr. Pizarro with pulmonary. She wears 2 L NC PRN and at night. She continues to smoke 1/2 PPD. She is scheduled to have foot surgery on Saturday03/03/2021 for a bunyon removal. *Had LHC 05/14/2019 No significant CAD. Mid and distal LAD myocardial bridging, mild to moderate. Normal LVSF Results from this visit, or from the past:LIPID 05/12/2019 CH 92 TR 75 LDL 50 HDL 331 NA 139 K 3.7 CH 105 CO2 24 GK 93 BUN 10 CR >60 CA 9.6 AST 37 ALT 49 ALK PH 9010 WBC 5.5 RBC 4.22 HGB 14.1 HCT 42.5 PLT 82413/: NA 138 ,K 3.7, CL 105 ,CO2 28, GLU 90, BUN 14, CR 0.80,01/29/19: TC 162 ,TG 63 ,HDL 68 ,LDL 81,AST 17 ,ALT 204 CMP: SOD 146, K 4.4, CL 104, CO2 28, GL 94, BUN 16, CR 0.80, AST 17, ALT 23; 11/11/17 Lipid: TR 77, TC 202, LDL 105, HDL 62; sm 05/17/2017: WBC 6.1, HGB 16.5, HCT 51.1, PLT 159 05/16/16: NA:144, K:4.3, CL:105, CO2:29, GLU:123, BUN:12, CR:0.80, AST:27, ALT:24 03/15/16: NA:144, K: 4.0, CL:104, CO2:31, GLU:88, BUN:12, CR:0.80, AST:19, ALT:208: TC:176, TR:73, LDL:83, HDL:75 01/10/16: Na 140 ,K 4.6 ,CL 101 ,CO2 19.1 ,GLU 63 ,BUN 16 ,CR 0.74 ,HB 16.1,HT 51 ,AST 14 ,ALT 14 08/24/15: Na 138 ,K 3.4 ,CL 106 ,CO2 26 ,GLU 111 ,BUN 12 ,CR 0.70 10/19/19 EKG- Prob AFIB. Low Volt., Poor R progression in chst lds. Anteroseptal myocardial infarction. EKG 05/04/19: RBBB. Otherwise normal limits EKG 11/05/17 : RBBB EKG 01/22/17: RBBB. Inverted T wave in aVLEKG 07/31/17: sinus rhythm slow. P: normal. QRS: vertical axis. consider EVH. R >0.15mV in V1. R/S > 1 in V1. incomplete RBBB. QRS= 128ms. RSR' in V1 V2. R'>R in V1. ST-T: normal. Conclusion: possibly abnormal ECG EK01/10/16 sinus rhythm (slow). vertical axis consider RVH. R > 0.5 ms in V1 R/S > in V1 Incomplete RBBB. QRS = 126 ms. RSR' in V1 R' > in V1. borderline ECG. EK04/26/15 Sinus rhythm , IRBBB, NSST changes Echo 04/16/2019 LV chamber dimension is normal. LVSF is normal, estimated at 60-65%. The LV diastolic function is grade I diastolic dysfunction. E/E 7 is not elevated. No pulmonary HTN, estimated pulmonary arterial systolic pressure is 32 mmHg 03/12/19 LDCT LUNG CANCER: Lung- RADS category 2, benign appearance or behavior(<1% chance of malignancy). Recommend continued LDCT screening in 1 year. US,Duplex, Arterial, Lower Extremity 01/29/17 : No significant lower extremity peripheral arterial disease detected. Treadmill Nuclear Stress Test 11/13/17 : Positive stress test. Normal LV systolic function. Reversible defect consistent with ischemia in apical area. Compared to last study in 08/28, ischemia is new. Exercise tolerance is poor. LVEF 66%. Treadmill Nuclear Stress Test 08/22/16 : Negative stress test for ischemia. Normal LV systolic function. No previous study to compare. Exercise tolerance is below average. Submaximal exercise stress test. The sensitivity of the test is reduced by the inability to achieve target heart rate. LVEF 61%. US, Duplex, Arterial, Lower Extremity 01/29/17 : No significant lower extremity peripheral arterial disease detected. Soledad frankel [place] - [facility] 02/12/2024 11:53:40 03/26/2023 text/html 03/26/23CC : Car diac follow up chest pain and dyspnea on -dwcy-nnc white woman with h/o dyslipidemia, CAD mild ( CTA 2018) and cath with LAD bring, mild PVD, chronic obstructive pulmonary disease, tobacco dependence, GERD, anxiety, and depression is here for 6 month follow up. He was last seen in the clinic on 09/28/22, since then she is doing well. She denied chest pain but she is reporting occasional dyspnea on exertion which is the same as before. *Last LDL was 101 done on 10/10/21, Pt takes not taking any medicationHe denies ER visits and hospitalizations since he was last seen. Today reports:Denies chest pain.Denies shortness of breath at rest. Has mild dyspnea on exertion.No orthopnea. No PNDs.Denies heart palpitations.Denies dizziness. Denies syncope or near syncope.No ankle or leg edema.No major bleeding events.No reported side effects from medications. Taking medications as prescribed with no missed doses.Denies snoring, daytime somnolence and AM headache.*Last LDL was 101 done on 10/10/21, Pt takes rosuvastatin 5 mg. Previously:She still have chest pain and dyspnea on exertion.Her chest pain is the same over the years.She still smoke about half a pack a day for the last 30 years.She had a flair up for her COPD recently and finished antibiotics and steriod course. Her last Echo showed EF of 55% The mitral valve leaflet is mildly thickened. There is a dense posterior mitral annular calcification. There is trace triscupid regurgitation. She sleep with 2 L of oxygen. Had shortness of breath at rest. Has mild to moderate dyspnea on exertion. *Had ECHO done on 10/16/21 showed LV chamber size is normal. LV wall thickness is normal. The estimated left ventricle ejection fraction is 55-60% (normal). Normal left atrial pressure and diastolic function. The mitral valve leaflet is mildly thickened. There is a dense posterior mitral annular calcification. There is trace triscupid regurgitation. (10/10/21) CMP- NA 139 K 4.3 CL 106 CR 0.80 GL 90 CA 9.0 AST 23 ALT 15 CK 80 ALK PHOS 60,TSH-0.597LIPID( 09/02)- TRIG 75 CHOL 210 LDL 101 HDL 72 She get exertional chest pain She has stable dyspnea on exertion. She follows with Dr. Pizarro with pulmonary. She wears 2 L NC PRN and at night. She continues to smoke 1/2 PPD. She is scheduled to have foot surgery on Saturday03/03/2021 for a bunyon removal. *Had LHC 05/14/2019 No significant CAD. Mid and distal LAD myocardial bridging, mild to moderate. Normal LVSF Results from this visit, or from the past:LIPID 05/12/2019 CH 92 TR 75 LDL 50 HDL 331 NA 139 K 3.7 CH 105 CO2 24 GK 93 BUN 10 CR >60 CA 9.6 AST 37 ALT 49 ALK PH 9005/12/2019 WBC 5.5 RBC 4.22 HGB 14.1 HCT 42.5 PLT 15501/: NA 138 ,K 3.7, CL 105 ,CO2 28, GLU 90, BUN 14, CR 0.80,01/29/19: TC 162 ,TG 63 ,HDL 68 ,LDL 81,AST 17 ,ALT 204 CMP: SOD 146, K 4.4, CL 104, CO2 28, GL 94, BUN 16, CR 0.80, AST 17, ALT 23; 11/11/17 Lipid: TR 77, TC 202, LDL 105, HDL 62; sm 05/17/2017: WBC 6.1, HGB 16.5, HCT 51.1, PLT 159 05/16/16: NA:144, K:4.3, CL:105, CO2:29, GLU:123, BUN:12, CR:0.80, AST:27, ALT:24 03/15/16: NA:144, K: 4.0, CL:104, CO2:31, GLU:88, BUN:12, CR:0.80, AST:19, ALT:208: TC:176, TR:73, LDL:83, HDL:75 01/10/16: Na 140 ,K 4.6 ,CL 101 ,CO2 19.1 ,GLU 63 ,BUN 16 ,CR 0.74 ,HB 16.1,HT 51 ,AST 14 ,ALT 14 08/24/15: Na 138 ,K 3.4 ,CL 106 ,CO2 26 ,GLU 111 ,BUN 12 ,CR 0.70 10/19/19 EKG- Prob AFIB. Low Volt., Poor R progression in chst lds. Anteroseptal myocardial infarction. EKG 05/04/19: RBBB. Otherwise normal limits EKG 11/05/17 : RBBB EKG 01/22/17: RBBB. Inverted T wave in aVLEKG 07/31/17: sinus rhythm slow. P: normal. QRS: vertical axis. consider EVH. R >0.15mV in V1. R/S > 1 in V1. incomplete RBBB. QRS= 128ms. RSR' in V1 V2. R'>R in V1. ST-T: normal. Conclusion: possibly abnormal ECG EK01/10/16 sinus rhythm (slow). vertical axis consider RVH. R > 0.5 ms in V1 R/S > in V1 Incomplete RBBB. QRS = 126 ms. RSR' in V1 R' > in V1. borderline ECG. EK04/26/15 Sinus rhythm , IRBBB, NSST changes Echo 04/16/2019 LV chamber dimension is normal. LVSF is normal, estimated at 60-65%. The LV diastolic function is grade I diastolic dysfunction. E/E 7 is not elevated. No pulmonary HTN, estimated pulmonary arterial systolic pressure is 32 mmHg 03/12/19 LDCT LUNG CANCER: Lung- RADS category 2, benign appearance or behavior(<1% chance of malignancy). Recommend continued LDCT screening in 1 year. US,Duplex, Arterial, Lower Extremity 01/29/17 : No significant lower extremity peripheral arterial disease detected. Treadmill Nuclear Stress Test 11/13/17 : Positive stress test. Normal LV systolic function. Reversible defect consistent with ischemia in apical area. Compared to last study in 08/28, ischemia is new. Exercise tolerance is poor. LVEF 66%. Treadmill Nuclear Stress Test 08/22/16 : Negative stress test for ischemia. Normal LV systolic function. No previous study to compare. Exercise tolerance is below average. Submaximal exercise stress test. The sensitivity of the test is reduced by the inability to achieve target heart rate. LVEF 61%. US, Duplex, Arterial, Lower Extremity 01/29/17 : No significant lower extremity peripheral arterial disease detected. Galo Osei MD [address] [place], [address], [facility] 03/26/2023 13:09:09 OBGyn Episode No OBEpisode recorded.
== END 2024-09-18 11:03 | disposition home or self-care (01) ==
PROVIDERS: PCP Family Medicine; Visit Provider Internal Medicine Critical Care Medicine
DX: Z12.2 Encounter for screening for malignant neoplasm of respiratory organs (principal); Z87.891 Personal history of nicotine dependence
CPT/HCPCS: 71271

== ENCOUNTER 2025-01-09 10:48 | Outpatient (CLI) | payer MEDICARE, SELFPAY ==
--- OUTSIDE RECORDS SUMMARY | 2025-01-09 10:52 | XMS_ITS | Data Portability ---
Author Organization [place] [facility] [place] [employer], Main Office Address [address] [place] [address] Assessment No assessment recorded. Plan of Treatment Reminders Order Date Submit Date Provider Last Modified By Organization Details Last Modified Time Details Appointments None recorded. Lab None recorded. Referral None recorded. Procedures None recorded. Surgeries None recorded. Imaging None recorded. Medication Orders cyanocobala min (vit B-12) 1,000 mcg/mL injection solution 2022 023 [id number], [address], [place], [phone], 3 21:23:52 ergocalcife rol (vitamin D2) 1,250 mcg (50,000 unit) capsule 2022 023 [id number], [address], [place], [phone], 3 21:23:50 Patient TargetsNo targets recorded. Patient InstructionsNo instructions recorded. Reason for Referral None Reported. Results Created Date Observation Date Name Description Value Unit Range Abnormal Flag Note LastModifiedBy Organization Detail LastModifiedTime Result Notes None recorded. Problems Name Problem SNOMED Code Status Onset Date Resolution Date Notes Provider Name and Address Organization Details Recorded Time Acquired hallux limitus of right great toe 8400844458867 100 Active 2020 Not Available [facility] 3 03:02:46 Postoperat yefri visit 192620117 Active 2020 Not Available [facility] 3 03:02:46 Disorder of lung 54752695 Active 2020 Not Available [facility] 3 03:02:46 Shane thyroiditi s 06097378 Active 2021 Not Available [facility] 3 03:02:46 Low back pain 575607847 Active Not Available [facility] 3 03:02:47 Osteopenia 781794204 Active 2021 Not Available [facility] 3 03:02:47 Vitamin D deficiency 73854228 Active 2021 Not Available [facility] 3 03:02:47 Arthritis 1348382 Active 2020 Not Available [facility] 3 03:02:47 Disorder of bursa of shoulder region 42198245 Active Not Available [facility] 3 03:02:47 Carpal tunnel syndrome 41265427 Active Not Available [facility] 3 03:02:47 Vitamin B12 deficiency (non anemic) 45220764 Active 2021 Not Available [facility] 3 03:02:47 Cellulitis of toe 64501001 Active 2020 Not Available [facility] 3 03:02:47 Notes:PULMONARY DISEASE Problem Notes None recorded. Procedures Surgical History Date Name Laterality Status Provider Name and Address Organization Details Recorded Time Foot Surgery completed Not Available [facility] 023 02:55:59 Cataract Surgery completed Not Available [facility] 10/10/2022 02:55:59 Carpal tunnel surgery completed Not Available [facility] 10/10/2022 02:55:59 Cyst Removal completed Not Available [facility] 10/10/2022 02:55:59 section completed Not Available [facility] 10/10/2022 02:55:59 Imaging Results None recorded. Procedure [...] Available Not Available Vitals Date Recorded Body mass index (BMI) Body height Oxygen saturation Oxygen saturation in Arterial blood by Pulse oximetry Heart rate Body temperature Body weight Systolic blood pressure Diastolic blood pressure Provider Name and Address Organization Details Last Updated DateTime 2 20.8 kg/m2 154.94 cm 96 % 96 % 66 /min 97.8 [degF] 61437.1 6 g 105 mm[Hg] 65 mm[Hg] Not Available [facility] 3 02:58:25 Date Recorded Body height Provider Name an d Address Organization Details Last Updated DateTime 02/02/2022 154.94 cm Not Available [facility] 3 02:58:25 Date Recorded Body mass index (BMI) Body height Heart rate Body weight Systolic blood pressure Diastolic blood pressure Provider Name and Address Organization Details Last Updated DateTime 1 20.2 kg/m2 154.94 cm 86 /min 90016.3 8 g 132 mm[Hg] 85 mm[Hg] Not Available [facility] 3 02:58:24 Date Recorded Body height Body mass index (BMI) Body weight Heart rate Systolic blood pressure Diastolic blood pressure Provider Name and Address Organization Details Last Updated DateTime 3 154.94 cm 18.6 kg/m2 86253.7 7 g 85 /min 104 mm[Hg] 68 mm[Hg] Belinda Wagner [facility] 3 16:27:26 Date Recorded Body mass index (BMI) Body height Oxygen saturation Oxygen saturation in Arterial blood by Pulse oximetry Heart rate Body temperature Body weight Systolic blood pressure Diastolic blood pressure Provider Name and Address Organization Details Last Updated DateTime 2 19.7 kg/m2 154.94 cm 96 % 96 % 78 /min 97.7 [degF] 67569.6 1 g 110 mm[Hg] 65 mm[Hg] Not Available [facility] 3 02:58:25 Social History Question Answer Notes LastModified by [employer] Details LastModified Time Tobacco Smoking Status Current Every Day Smoker Not Available [facility] 10/10/2022 02:44:33 What Is Your Level Of Caffeine Consumption? Occasional [id number] Information not available 10/10/2022 In The 14 Days Before Symptom Onset, Have You Had Close Contact With A Laboratory-confir med COVID-19 While That Case Was Ill? No [id number] Information not available 10/10/2022 In The 14 Days Before Symptom Onset, Have You Had Close Contact With A Person Who Is Under Investigation For COVID-19 While That Person Was Ill? No [id number] Information not available 10/10/2022 Which Illicit Or Recreational Drugs Have You Used? Marijuana [id number] Information not available 10/10/2022 How Much Tobacco Do You Smoke? 1 PPD [id number] Information not available 10/10/2022 Sex: Female Functional Status Question Answer Note LastModified by [employer] Details LastModified Time What is your level of alcohol consumption? None [id number] Information not available 10/10/2022 Mental Status None recorded. Family History Relationship Description Onset Age of this Age Resolved Age Notes LastModified by Organization Details LastModified Time Mother Arthritis [id number] Not available 10/10/2022 02:56:01 Mother Hypertensive disorder [id number] Not available 10/10/2022 02:56:01 Brother Hypertensive disorder [id number] Not available 10/10/2022 02:56:02 Brother Heart disease [id number] Not available 10/10/2022 02:56:02 Notes:CANCER-FATHER/BROTHER Medical History Condition Response HYPERTHYROIDISM Y ARTHRITIS Y LUNG DISEASE/DISORDER Y Gynecological HistoryNo gynecological history recorded. Obstetrics History GPAL:G 0 P 0 0 0 0 Past Encounters Encounter ID Performer Location Encounter Start Date Encounter Closed Date Diagnosis/Indication Diagnosis SNOMED-CT Code Diagnosis ICD10 Code Diagnosis Note [id number] MD Roger GirardMARISOLAMBER [facility]_ DEFAULT_1 _1 , 11/10/2020 00:00:00 11/10/2020 11:56:30 [id number] Troy Godoy DPM [facility] [place] [address] [facility] [address] [place] [address] 02/07/2021 00:00:00 02/07/2021 14:17:33 [id number] RUBEN UribeATHENA_M IGRATION_ DEFAULT_1 _1 , 03/06/2021 00:00:00 03/10/2021 18:33:02 [id number] RUBEN UribeATHENA_M IGRATION_ DEFAULT_1 _1 , 03/13/2021 00:00:00 03/13/2021 19:43:44 [id number] RUBEN UribeATHENA_M IGRATION_ DEFAULT_1 _1 , 03/20/2021 00:00:00 03/21/2021 10:08:42 [id number] RUBEN UribeATHENA_M IGRATION_ DEFAULT_1 _1 , 03/27/2021 00:00:00 03/27/2021 14:45:03 [id number] RUBEN UribeATHENA_M IGRATION_ DEFAULT_1 _1 , 04/10/2021 00:00:00 04/10/2021 14:21:51 [id number] [facility] _ATHENA_M IGRATION_ DEFAULT_1 _1 , 10/26/2021 00:00:00 10/26/2021 17:57:19 [id number] [facility] [address] [place] [address] 02/02/2022 00:00:00 02/02/2022 16:13:22 [id number] [facility] [place] [address] [place] [address] 07/23/2022 00:00:00 07/23/2022 14:23:28 [id number] Leann Meléndez MD [facility] [place] [address] [place] [address] 04/11/2023 16:07:02 04/11/2023 16:45:26 Osteopenia [id number] M85.80 Recommende d 1200 mg of calcium [...] n. Vitamin B1 2 deficiency (non anemic) 51405809 E53.8 Continue on B12 injections as patient has more energy and focus on injections . Vitamin D deficiency 347 66123 E55.9 Continue on vitamin D once weekly [...] Felipe Member ID Guarantor Name 04/11/2023 1 [facility] - DOS ON OR AFTER 21 (MEDICAID REPLACEMENT - HMO) Liset Kunz [id number] Liset Kunz Notes Date Note Type Note [...] is doing well overall. 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 She does use oxygen on hot /humid days but otherwise doing well. She has no recent falls or fractures. labs from 04/06/23:TPO 8 IU/mlFT4 of 2.9 pg/MLglucose 98 mg/dLCr normalLFT normalTSH of 0.617 uIU/mlvit D 67.7 ng/mLFT4 of 1.25 ng/dL Leann Meléndez MD [address] [facility], [facility], [place], [address], [place] [employer] [facility] 04/11/2023 21:24:51 OBGyn Episode No OBEpisode recorded.
--- OUTSIDE RECORDS SUMMARY | 2025-01-09 10:52 | XMS_ITS | Data Portability ---
Author Organization TADEO Júnior GRIMM Address [address] [place] [address] Assessment No assessment recorded. Plan of Treatment Reminders Order Date Submit Date Provider Last Modified By Organization Details Last Modified Time Details Appointments None recorded. Lab urinalysi s, dipstick 2020 mao In-Office Order, Internal Use Only DO Not Attach Compendium DO Not Attach Compendium, Do Not Delete/merge, [id number] 17:13:31 pap, IG + HPV, cervical - please use Z11.51 in addition to code above for HPV testing. 2020 SHELLEY [facility], [address], [address], [place], [address], 08:19:09 noninvasi ve colorecta l cancer DNA + occult blood screening , stool [facility] [address], [address], [place], [address], 17:21:45 pap, IG + HPV, cervical 2016 017 [facility], [address], [address], [place], [address], 7 11:36:11 bacterial vaginosis + vaginitis panel, vaginal 2016 017 [facility], [address], [place], [address], 7 06:05:00 HSV (1+2) DNA, qual, PCR, unspecifi ed specimen 2016 017 [facility], [address], [address], [place], [address], 7 06:05:01 culture, vaginal/r ectal, streptoco ccus group B 2016 017 [facility], [address] [facility], [address], [place], [address], 7 06:05:01 RPR (rapid plasma reagin), serum 2016 017 [facility], [address] [place], [place] [address], [address], [place], [address], 7 08:31:37 hsv-2 (herpes simplex virus type 2) igg Ab, serum 2016 017 [facility], [address] [address], [place], [address], 7 08:31:38 hepatitis panel (A+B+C), acute, serum 2016 017 [facility], [facility], [address], [place], [address], 7 08:31:36 hepatitis B surface Ab, qualitati ve, serum 2016 017 [facility], [address], [place], [address], 7 08:31:36 HIV 1+2 AB + HIV 1 p24 Ag, qualitati ve immunoass ay, serum 2016 017 [facility], [address], [place], [address], 7 08:31:37 pap, IG + HPV, cervical 2015 016 [facility], [address], [address], [place], [address], 6 14:32:22 Referral None recorded. Procedures None recorded. Surgeries None recorded. Imaging MAMMO, screening , bilateral 2020 021 [facility], [address], [address], [place], [address], 1 16:26:02 MAMMO, screening , bilateral 2018 019 [facility], [address], [address], [place], [address], 0 20:21:56 MAMMO, screening , bilateral 2017 018 [facility], [address], [address], [place], [address], 8 18:37:18 MAMMO, screening , bilateral 2016 017 [facility], [address], [address], [place], [address], 7 09:27:21 mammogram , screening 2015 016 [facility] ([facility] Sched[facility]), [address] [place], [address], 6 09:43:20 bone density, hip and spine 2015 016 [facility] ([facility] Sched[facility]), [address] [place], [address], 6 09:43:20 Medication Orders multivita min tablet 2020 SHELLEY Not available 17:13:36 Calcium with Vitamin D 600 mg-10 mcg (400 unit) tablet 2020 SHELLEY Not available 17:13:34 vitamin E (dl, acetate) 180 mg (400 unit) capsule 2017 018 [email or web address] Not available 9 12:55:49 evening primrose oil 500 mg capsule 2017 018 [email or web address] Not available 9 12:57:48 Premarin 0.625 mg/gram vaginal cream 2016 017 [email or web address] Not available 9 12:55:36 calcium 600 mg (as carbonate )-vitamin D3 20 mcg (800 unit) tablet 2016 017 [email or web address] Not available 9 12:54:43 multivita min tablet 2016 017 [email or web address] Not available 9 12:57:43 bupropion HCl SR 150 mg tablet,12 hr sustained -release 2016 017 INTERFACE Not available 7 18:06:48 calcium 600 mg (as carbonate )-vitamin D3 20 mcg (800 unit) tablet 2015 016 [email or web address] Not available 9 12:54:43 multivita min tablet 2015 016 [email or web address] Not available 9 12:57:43 Viibryd 20 mg tablet 2015 016 [email or web address] Not available 9 12:55:42 Viibryd 20 mg tablet 2015 016 [email or web address] Not available 9 12:55:42 Patient TargetsNo targets recorded. Patient Instructions Encounter Date Encounter Id Patient Instructions Last Modified By Organization Details Last Modified Time 09/14/2015 [id number] learning about breast cancer screening mwasserman Not available 09/14/2015 17:33:47 learning about mood disorders [email or web address] Not available 09/15/2015 09:27:09 10/09/2016 [id number] influenza (flu) vaccine: care instructions Not available 10/09/2016 16:36:17 mammogram: about this test mwasserman Not available 10/09/2016 17:33:40 atrophic vaginitis: care instructions Not available 10/09/2016 16:36:17 learning about mood disorders Not available 10/09/2016 16:36:17 01/09/2018 [id number] mammogram: about this test mwasserman Not available 01/09/2018 12:12:02 fibrocystic breast changes: care instructions mwasserman Not available 01/09/2018 10:41:54 06/11/2019 [id number] mammogram: about this test mwasserman Not available 06/11/2019 14:17:25 fibrocystic breast changes: care instructions mwasserman Not available 06/11/2019 14:25:46 learning about mood disorders mwasserman Not available 06/11/2019 14:25:46 06/05/2021 [id number] mammogram: about this test mwasserman Not available [...] DO Not Attach Compendium, Do Not Delete/merge, [id number] 06/05/2021 16:37:17 06/05/2006/05/2021 urina lysis , dipst ick Nitrite negati ve Not Available In-Office Order Internal Use Only DO Not Attach Compendium DO Not Attach Compendium, Do Not Delete/merge, [id number] 06/05/2021 16:37:17 06/05/2006/05/2021 urina lysis , dipst ick Urobilinogen 2 Not Available In-Of fice Order Internal Use Only DO Not Attach Compendium DO Not Attach Compendium, Do Not Delete/merge, [id number] 06/05/2021 16:37:17 06/05/20 21 06/05/2021 urina lysis , dipst ick Protein Negati ve Not Available In-Office Order Internal Use Only DO Not Attach Compendium DO Not Attach Compendium, Do Not Delete/merge, [id number] 06/05/2021 16:37:17 06/05/20 21 06/05/2021 urina lysis , dipst ick pH 6.5 Not Available In-Office Order Internal Use Only DO Not Attach Compendium DO Not Attach Compendium, Do Not Delete/merge, [id number] 06/05/2021 16:37:17 06/05/20 21 06/05/2021 urina lysis , dipst ick Blood Non-He molyze d: Trace Not Available In-Office Order Internal Use Only DO Not Attach Compendium DO Not Attach Compendium, Do Not Delete/merge, [id number] 06/05/2021 16:37:17 06/05/20 21 06/05/2021 urina lysis , dipst ick Specific Rutledge 1.025 Not Available In-Off ice Order Internal Use Only DO Not Attach Compendium DO Not Attach Compendium, Do Not Delete/merge, [id number] 06/05/2021 16:37:17 06/05/20 21 06/05/2021 urina lysis , dipst ick Ketone Negati ve Not Available In-Office Order Internal Use Only DO Not Attach Compendium DO Not Attach Compendium, Do Not Delete/merge, [id number] 06/05/2021 16:37:17 06/05/20 21 06/05/2021 urina lysis , dipst ick Bilirubin Negati ve Not Available In-Office Order Internal Use Only DO Not Attach Compendium DO Not Attach Compendium, Do Not Delete/merge, [id number] 06/05/2021 16:37:17 06/05/20 21 06/05/2021 urina lysis , dipst ick Glucose Negati ve Not Available In-Office Order Internal Use Only DO Not Attach Compendium DO Not Attach Compendium, Do Not Delete/merge, [id number] 06/05/2021 16:37:17 09/14/19 16 09/16/2015 pap, IG + HPV, cervi tara diagnosis: RONI FOURNIER FOR INTRA EPITH ELIAL LESIO N AND AXEL QUINN . Not Available [facility] ([facility]) [address], [address], [place], [address], 09/19/2015 14:32:22 09/14/19 16 09/16/2015 pap, IG + HPV, cervi tara specimen adequacy: RONI Gillis SATIS FACTO RY FOR EVALU ATION . Not Available [facility] ([facility]) [address], [place], [place], [address], 09/19/2015 14:32:22 09/14/19 16 09/16/2015 pap, IG + HPV, cervi tara clinician provided ICD10: RONI Gillis Z01.4 19 Not Available [facility] ([facility]) [address], [place], [place], [address], 09/19/2015 14:32:22 09/14/19 16 09/16/2015 pap, IG + HPV, cervi tara performed by: MAYRA BLUM (ASCP ) Not Available [facility] ([facility]) [address], [place], [place], [address], 09/19/2015 14:32:22 09/14/19 16 09/16/2015 pap, IG + HPV, cervi tara . . Not Available [facility] ([facility]) [address], [place], [place], [address], 09/19/2015 14:32:22 09/14/19 16 09/16/2015 pap, IG [...] TS DO OCCUR . Not Available [facility] ([facility]) [address] [place], [address], 09/19/2015 14:32:22 09/14/19 16 09/16/2015 pap, IG + HPV, cervi tara test methodology: COMMEN T THIS LIQUI D BASED THINP REP(R ) PAP TEST WAS SCREE SHERINE WITH THE USE OF AN IMAGE GUIDE Malaika Lindsay. Not Available [facility] ([facility]) [address] [place], [address], 09/19/2015 14:32:22 09/14/19 16 09/19/2015 pap, IG + HPV, cervi tara HPV aptima NEGATI VE negati ve THIS TEST DETEC TS FOURT EEN HIGH- RISK HPV TYPES (16/1 8/31/ 33/35 /39/4 5/ 51/52 /56/5 8/59/ 66/68 ) WITHO UT DIFFE RENTI ATION . Not Available [facility] ([facility]) [address] [place], [address], 09/19/2015 14:32:22 10/09/19 17 10/11/2016 pap, IG + HPV, cervi tara diagnosis: COMMEN T NEGAT SHANTANU FOR INTRA EPITH ELIAL CLAYTON Rosario AND AXEL QUINN . Not Available [facility] ([facility]) [address] [place], [address], 10/11/2016 11:36:11 10/09/19 17 10/11/2016 pap, IG + HPV, cervi tara specimen adequacy: COMMEN T SATIS FACTO RY FOR EVALU ATION . ENDOC ERVIC AL AND/O R SQUAM OUS METAP LASTI C CELLS (ENDO CERVI TARA COMPO NENT) ARE PRESE NT. Not Available [facility] ([facility]) [address], [place], [place], [address], 10/11/2016 11:36:11 10/09/19 17 10/11/2016 pap, IG + HPV, cervi tara clinician provided ICD10: RONI Gillis Z01.4 19 Not Available [facility] ([facility]) [address] [place], [address], 10/11/2016 11:36:11 10/09/19 17 10/11/2016 pap, IG + HPV, cervi tara performed by: RONI MANUEL, CYTOT NICOLAS Gillis (ASCP ) Not Available [facility] ([facility]) [address] [place], [address], 10/11/2016 11:36:11 10/09/19 17 10/11/2016 pap, IG + HPV, cervi tara . . Not Available [facility] ([facility]) [address] [place], [address], 10/11/2016 11:36:11 10/09/19 17 10/11/2016 pap, IG [...] TS DO OCCUR . Not Available [facility] ([facility]) [address], [place], [place], [address], 10/11/2016 11:36:11 10/09/19 17 10/11/2016 pap, IG + HPV, cervi tara test methodology: RONI Gillis THIS LIQUI D BASED THINP REP(R ) PAP TEST WAS SCREE SHERINE WITH THE USE OF AN IMAGE GUIDE Malaika SYSTMena M. Not Available [facility] ([facility]) [address] [place], [address], 10/11/2016 11:36:11 10/09/19 17 10/11/2016 pap, IG + HPV, cervi tara HPV aptima NEGATI VE negati ve THIS TEST DETEC TS FOURT EEN HIGH- RISK HPV TYPES (16/1 8/31/ 33/35 /39/4 5/ 51/52 /56/5 8/59/ 66/68 ) WITHO UT WOJCIECHE RUFINA JIMENEZ . Not Available [facility] ([facility]) [address], [place], [place], [address], 10/11/2016 11:36:11 10/09/19 17 10/12/2016 bacte rial vagin osis + vagin itis panel , vagin al juana albicans, ALBER NEGATI VE negati ve Not Available [facility] ([facility]) [address] [place], [address], 10/14/2016 06:05:00 10/09/19 17 10/12/2016 bacte rial [...] IS NOT NECES DANIEL. Not Available [facility] ([facility]) [address], [place], [place], [address], 10/14/2016 06:05:00 10/09/19 17 10/12/2016 bacte rial vagin osis + vagin itis panel , vagin al trich vag by ALBER NEGATI VE negati ve Not Available [facility] ([facility]) [address] [place], [address], 10/14/2016 06:05:00 10/09/19 17 10/12/2016 bacte rial vagin osis + vagin itis panel , vagin al chlamydia trachomatis, ALBER NEGATI VE negati ve Not Available [facility] ([facility]) [address] [place], [address], 10/14/2016 06:05:00 10/09/19 17 10/12/2016 bacte rial vagin osis + vagin itis panel , vagin al neisseria gonorrhoeae, ALBER NEGATI VE negati ve Not Available [facility] ([facility]) [address] [place], [address], 10/14/2016 06:05:00 10/09/19 17 10/13/2016 bacte rial vagin osis + vagin itis panel , vagin al atopobium vaginae HIGH - 2 score abnormal Not Available [facility] ([facility]) [address] [place], [address], 10/14/2016 06:05:00 10/09/19 17 10/13/2016 bacte rial vagin osis + vagin itis panel , vagin al bvab 2 HIGH - 2 score abnormal Not Available [facility] ([facility]) [address] [place] [address], [address], 10/14/2016 06:05:00 10/09/19 17 10/13/2016 bacte rial [...] IS NOT MATT SANCHEZ. Not Available [facility] ([facility]) [address], [place], [place], [address], 10/14/2016 06:05:00 10/09/19 17 10/13/2016 HSV (1+2) DNA, qual, PCR, unspe cifie d speci men hsv 1 ALBER NEGATI VE negati ve Not Available [facility] ([facility]) [address] [place], [address], 10/14/2016 06:05:01 10/09/19 17 10/13/2016 HSV (1+2) DNA, qual, PCR, unspe cifie d speci men hsv 2 ALBER NEGATI VE negati ve Not Available [facility] ([facility]) [address], [place], [place], [address], 10/14/2016 06:05:01 10/09/19 17 10/11/2016 cultu re, [...] N IS NOTED . Not Available [facility] ([facility]) [address] [place], [address], 10/14/2016 06:05:01 10/17/19 17 10/17/2016 hepat itis panel (A+B+ C), acute , serum hep A Ab, IgM NEGATI VE negati ve Not Available [facility] ([facility]) [address] [place], [address], 10/17/2016 08:31:36 10/17/19 17 10/17/2016 hepat itis panel (A+B+ C), acute , serum HBsAg screen NEGATI VE negati ve Not Available [facility] ([facility]) [address] [place], [address], 10/17/2016 08:31:36 10/17/19 17 10/17/2016 hepat itis panel (A+B+ C), acute , serum hep B core Ab, IgM NEGATI VE negati ve Not Available [facility] ([facility]) [address] [place], [address], 10/17/2016 08:31:36 10/17/1910/17/2016 hepat itis panel (A+B+ [...] ION TEST (5507 13). Not Available [facility] ([facility]) [address], [place], [place], [address], 10/17/2016 08:31:36 10/17/19 17 10/17/2016 hepat itis B surfa ce Ab, quali tativ e, serum hep B surface Ab, qual REACTI VE NON REACT SHANTANU: INCON SISTE NT WITH IMMUN ITY, LESS THAN 10 MIU/M L REACT SHANTANU: CONSI STENT WITH IMMUN ITY, GREAT ER THAN 9.9 MIU/M L Not Available [facility] ([facility]) [address] [place], [address], 10/17/2016 08:31:36 10/17/1910/17/2016 RPR (rapi d plasm a reagi n), serum RPR NON REACTI VE non reacti ve Not Available [facility] ([facility]) [address] [place], [address], 10/17/2016 08:31:37 10/17/1910/17/2016 HIV 1+2 AB + HIV 1 p24 Ag, quali tativ e immun oassa y, serum HIV screen 4TH generation wrfx NON REACTI VE non reacti ve Not Available [facility] ([facility]) [address] [place], [address], 10/17/2016 08:31:37 10/17/1910/17/2016 hsv-2 (herp es simpl [...] EMMETT TO HSV-2 . Not Available [facility] ([facility]) [address], [place], [place], [address], 10/17/2016 08:31:38 06/06/20 21 06/09/2021 IGP, APTIM A HPV diagnosis: Commflory t NEGAT SHANTANU FOR INTRA EPITH ELIAL LESIO N OR AXEL QUINN . CELLU EJNNY RICKETTS ES ASSOC IATED WITH ATROP HY ARE PRESE NT. Not Available [facility] ([facility]) [address], [place], [place], [address], 06/09/2021 08:19:09 06/06/20 21 06/09/2021 IGP, APTIM A HPV specimen adequacy: Commen t Satis facto ry for evalu ation . Endoc ervic al compo nent may not be disti nguis hed in cases of atrop hy. Not Available [facility] ([facility]) [address] [place], [address], 06/09/2021 08:19:09 06/06/20 21 06/09/2021 IGP, APTIM A HPV clinician provided ICD10: Roni gillis Z01.4 19 Not Available [facility] ([facility]) [address] [place], [address], 06/09/2021 08:19:09 06/06/20 21 06/09/2021 IGP, APTIM A HPV performed by: Roni t Joseph caro Cytocarlin gillis (ASCP ) Not Available [facility] ([facility]) [address] [place], [address], 06/09/2021 08:19:09 06/06/20 21 06/09/2021 IGP, APTIM A HPV . . Not Available [facility] ([facility]) [address] [place], [address], 06/09/2021 08:19:09 06/06/20 21 06/09/2021 IGP, APTIM [...] ts do occur . Not Available [facility] ([facility]) [address], [place], [place], [address], 06/09/2021 08:19:09 06/06/20 21 06/09/2021 IGP, APTIM A HPV test methodology: Commen t This liqui d based ThinP rep(R ) pap test was scree sherine with the use of an image guide d syste m. Not Available [facility] ([facility]) [address], [place], [place], [address], 06/09/2021 08:19:09 06/06/20 21 06/09/2021 IGP, APTIM A HPV HPV aptima Negati ve negati ve This nucle ic acid ampli ficat ion test detec ts fourt een high- risk HPV types (16,1 8,31, 33,35 ,39,4 5,51, 52,56 ,58,5 9,66, 68) witho ut diffe renti ation . Not Available [facility] ([facility]) [address], [place], [place], [address], 06/09/2021 08:19:09 06/30/2006/30/2021 COLOG UARD cologuard result [...] of 10,00 0 indiv [place]ual [facility] at [place] [facility] risk for color ectal cance r [...] asymp tomat ic indiv idual s at [place] ge risk for color ectal cance r. [...] 112:1 016-1 030. TEST DESCR IPTIO N: Rew site algor ithmi c lety sis of [...] years or older , who are at [facility] for color ectal cance r (CRC) . Colog uard has been appro danis for use by the [place] FDA. The perfo rmanc e of Colog uard was estab lishe d in a cross secti onal study of [facility] adult s aged 50-84 . Colog uard perfo rmanc e in patie nts ages 45 to 49 years was estim ated by kiya-g [place]erson lety sis of near- age group s. Colon oscop ies perfo rmed for a posit shanatnu resul t may find as the most [...] of 10,00 0 indiv idual s at [facility] risk for color ectal cance r who [...] at www.c lesviau ketan.c om. Not Available [facility] (Cologuard Orders Only) [address], [place], [address], 07/12/2021 17:21:43 09/20/19 16 09/19/2015 dexa PT NAME: SOUMYA MILLER : 1960 PT SEX/AG E: F/55 PT ACCT NUMBER : [id number] PT MR#: [id number] ROOM/B ED: PT STATUS : REG [...] ====== ===== Name: LISET MILLER t ID: [id number] Age: 55 Sex: Female Ethnic ity: White Date of : 1960 ------ ------ ------ ------ ------ ------ ------ ------ ------ ------ ----- Indica tion: josé caputo; height loss; Referr ing Provid er: QUETA TRUJILLO MARLEE [facility]. Exam Date: 2015 Access ion number : [id number] 8.002A [place] Bone Densit y: ------ ------ ------ ------ [...] ------ ------ ------ ------ ------ ----- [facility] Organi zation criter ia for BMD impres [...] [facility] [place] [address] [place], [place] [address] [facility] (Imaging) [address], [place], [address], 10/09/2016 14:51:54 09/20/19 16 09/20/2015 dexa PT NAME: PEDRO SanSOUMYA Verma Jacek : 1960 PT SEX/AG E: F/55 PT ACCT NUMBER : [id number] PT MR#: [id number] ROOM/B ED: PT STATUS : REG CLI DATE OF EXAMIN ATION: ORDERMathew POOL PHYSIC JESSICA: MARLEE BIRCH MAN MKendrick ATTEND ING PHYSIC JESSICA: MARLEE SANCHEZ , MHyun. DICTAT ING PHYSIC JESSICA: Carlin ECHEVARRIA M.D. 033 [id number] 8.001A [place] 14:50: 00 41.007 2MAM (BON) : DIGITA [...] [facility] [address] [place] [address] [facility] (Imaging) [address], [place], [address], 10/09/2016 14:51:54 09/26/19 16 09/19/2015 dexa PT NAME: SOUMYA MILLER : 1960 PT SEX/AG E: F/55 PT ACCT NUMBER : [id number] PT MR#: [id number] ROOM/B ED: PT STATUS : REG [...] ====== ===== Name: LISET MILLER carlin ID: [id number] Age: 55 Sex: Female Ethnic ity: White Date of : 1960 ------ ------ ------ ------ ------ ------ ------ ------ ------ ------ ----- Indica tion: josé caputo; height loss; Referr ethan Carr er: QUETA TRUJILLO MARLEE Study: Bone densit ometry was [facility] med. Exam Date: 2015 Access ion number : [id number] 8.002A [place] Bone Densit y: ------ ------ ------ ------ [...] ___ < > [facility] [address] [place] [address] [facility] ([facility]) [address], [place], [address], 10/09/2016 14:51:54 09/26/19 16 09/20/2015 dexa PT NAME: SOUMYA MILLER : 1960 PT SEX/AG E: F/55 PT ACCT NUMBER : [id number] PT MR#: [id number] ROOM/B ED: PT STATUS : REG CLI DATE OF EXAMIN ATION: ORDERI PHYSIC JESSICA: MARLEE SANCHEZ MKendrick ATTEND ING PHYSIC JESSICA: MARLEE SANCHEZ , MKendrick DICTAT ING PHYSIC JESSICA: Carlin ECHEVARRIA M.D. 033 [id number] 8.001A [place] 14:50: 00 41.007 2M[facility] ([facility]) : DIGITA L MAMM SCREEN [...] [facility] [address] [place] [address] [facility] (Imaging) [address], [place], [address], 10/09/2016 14:51:54 10/12/19 17 10/11/2016 DEXA PT NAME: SOUMYA MILLER : 1960 PT SEX/AG E: F/56 PT ACCT NUMBER : [id number] PT MR#: [id number] ROOM/B ED: PT STATUS : REG CLI DATE OF EXAMIN ATION: ORDERI NG PHYSIC JESSICA: MARLEE SANCHEZ Mary ATTEND ING PHYSIC JESSICA: MARLEE SANCHEZ , Mary DICTAT ING PHYSIC JESSICA: Carlin ECHEVARRIA M.D. 021 [id number] 2.001A [place] 12:14: 00 41.010 8MAM ([facility]) : DIGITA L DANIEL SCREEN [...] M.D.__ ___ [facility] [address] [facility] [address] [place] [address] [facility] (Imaging) [address] [place] [address] [address], [place], [address], 01/09/2018 13:47:04 10/12/19 17 10/11/2016 MAMMO , scree manasa, bilat eral No observ ation record ed. [facility] (Imaging) [address] [place] [address] [address], [place], [address], 01/09/2018 13:47:04 10/16/19 17 MAMMO , scree manasa, bilat eral No observ ation record ed. [facility] [address], [place], [address], 01/09/2018 13:47:03 01/14/20 18 01/13/2018 MAMMO , scree manasa, bilat eral No observ ation record ed. [facility] (Imaging) [address] [place] [address] [address] [facility], [place], [address], 01/15/2018 07:13:20 08/17/19 20 08/17/2019 MAMMO , scree manasa, bilat eral No observ ation record ed. [address] [facility], [place], [address], 06/05/2021 17:32:44 08/18/19 20 08/17/2019 MAMMO , scree manasa, bilat eral No observ ation record ed. [address], [place], [address], 06/05/2021 17:32:44 Result Notes None recorded. Problems Name Problem SNOMED Code Status Onset Date Resolution Date Notes Provider Name and Address Organization Details Recorded Time Smoker 32325166 Active 2017 TADEO Alejandre - [facility] 8 10:41:27 Fibrocystic disease of breast 10963502 Active 2017 arely's ligament pain Marlee frankel, [facility] 8 10:42:07 Chronic obstructive pulmonary disease 64234614 Active Marlee frankel, [place] - [place] 6 15:47:29 Irritable bowel syndrome 29501515 Active Marlee frankel, [facility] 6 15:47:29 Obstructive sleep apnea syndrome 71319908 Active Marlee frankel, [place] - [place] 6 15:47:29 Depressive disorder 29487961 Active Marlee frankel, [facility] 6 17:33:45 Osteopenia 542758394 Active Marlee frankel, [facility] 6 09:35:26 Problem Notes None recorded. Procedures Surgical History Date Name Laterality Status Provider Name and Address Organization Details Recorded Time 1 Date of Last Pap Smear completed Polly Lynn MA [facility] 06/05/2021 16:51:46 0 Most Recent Mammogram completed ARTEMIO Moran [facility] 06/05/2021 16:51:51 4 Other completed Afua Adamson [place] [facility] ROQUE 09/14/2015 15:33:32 0 Caesarean Section completed Afua Adamson [place] [facility] 09/14/2015 15:31:30 8 Caesarean Section completed ARTEMIO Sheldon ROQUE 09/14/2015 15:33:32 Tubal Ligation completed ARTEMIO Sheldon ROQUE 10/09/2016 11:45:10 Other completed ARTEMIO Sheldon ROQUE 09/14/2015 15:33:32 Orthopedic Surgery completed ARTEMIO Sheldon ROQUE 09/14/2015 15:33:32 Imaging Results None recorded. Procedure Notes None [...] N ot Available Vitals Date Recorded Body mass index (BMI) Body height Body weight Systolic blood pressure Diastolic blood pressure Provider Name and Address Organization Details Last Updated DateTime 09/14/2015 21 kg/m2 154.94 cm 34516.75 307 g 102 mm[Hg] 72 mm[Hg] Afua Adamson [place] - [facility] 6 15:43:18 Date Recorded Body height Body weight Body mass index (BMI) Systolic blood pressure Diastolic blood pressure Provider Name and Address Organization Details Last Updated DateTime 10/09/2016 154.94 cm 72636.71 g 21.9 kg/m2 102 mm[Hg] 62 mm[Hg] Afua Adamson MA [facility] 7 11:51:30 Date Recorded Body height Body mass index (BMI) Body weight Systolic blood pressure Diastolic blood pressure Provider Name and Address Organization Details Last Updated DateTime 01/09/2018 154.94 cm 22.1 kg/m2 82940.31 g 114 mm[Hg] 64 mm[Hg] Sarah Felix MA [facility] 8 10:24:10 Date Recorded Body height Body mass index (BMI) Body weight Systolic blood pressure Diastolic blood pressure Provider Name and Address Organization Details Last Updated DateTime 06/05/2021 152.4 cm 22.5 kg/m2 87545.12 g 110 mm[Hg] 70 mm[Hg] Polly Lynn MA [facility] 1 16:55:21 Date Recorded Body weight Body mass index (BMI) Body height Systolic blood pressure Diastolic blood pressure Provider Name and Address Organization Details Last Updated DateTime 06/11/2019 13587.01 g 20.1 kg/m2 152.4 cm 104 mm[Hg] 66 mm[Hg] Sarah Felix MA [facility] 9 13:05:49 Social History Question Answer Notes LastModified by Organizat ion Details LastModified Time Tobacco Smoking Status Current Every Day Smoker Afua Adamson MA [facility], [facility] 09/14/2015 15:39:37 Do You Have An Advance Directive? No Information not available 09/14/2015 Is Blood Transfusion Acceptable In An Emergency? Yes Information not available 09/14/2015 What Is Your Level Of Caffeine Consumption? None Information not available 09/14/2015 How Much Tobacco Do You Chew? None Information not available 09/14/2015 What Type Of Diet Are You Following? REGULAR Information not available 09/14/2015 Which Illicit Or Recreational Drugs Have You Used? None Information not available 09/14/2015 Education 12 Information no t available 09/14/2015 Live Alone Or With Others? With Others Information not available 09/14/2015 What Was The Date Of Your Most Recent Tobacco Screening? 06/05/2021 Information not available 06/05/2021 How Many Children Do You Have? 2 Information not available 09/14/2015 Performs Monthly Self-breast Exam? Yes Information no t available 09/14/2015 What Is Your Relationship Status? [...] You Passively Exposed To Smoke? Yes Information no t available 06/05/2021 How Much Tobacco Do You Smoke? 0.5 PPD Information not available 09/14/2015 General Stress Level Medium Information not available 09/14/2015 Do You Use Sunscreen Routinely? No Information not available 09/14/2015 Has Tobacco Cessation Counseling Been Provided? Yes Information not available 06/05/2021 On What Date Was Tobacco Cessation Counseling Provided? 06/05/2021 Information not available 06/05/2021 How Many Years Have You Smoked Tobacco? 25 Information not available 09/14/2015 Have You Used IV Drugs? No Information not available 06/05/2021 Sex: Unknown Functional Status Question Answer Note LastModified by Organizat ion Details LastModified Time Do you use any illicit or recreational drugs? Yes marijuana Information not available 06/05/2021 Do you or have you ever used any other forms of tobacco or nicotine? No Information not available 06/05/2021 What is your level of alcohol consumption? None Information not available 09/14/2015 Are you currently employed? No Information not available 09/14/2015 What is your occupation? unemployed Information not available 09/14/2015 What is your exercise level? Occasional Information not available 09/14/2015 Mental Status None recorded. Family History Relationship Description Onset Age of this Age Resolved Age Notes LastModified by Organization Details LastModified Time Mother Hypertensive disorder [email or web address] Not available 09/14 15:48:08 Mother Asthma mwasserman Not available 09/14/2015 15:48:08 Mother Chronic obstructive pulmonary disease mwasserman Not available 09/14 15:48:08 Father Malignant neoplasm of lung mwasserman Not available 09/14 15:48:08 Brother Malignant neoplasm of lung x1 Heart diseas e, x1Copd mwasserman Not available 09/14/2015 15:48:08 Sister Mental disorder x1 Copd mwasserman Not available 09/14/2015 15:48:08 Medical History Condition Response Other Y High Blood Pressure N Breast Cancer N Kidney or Bladder Problems N Thyroid Problems N GI Problems N Lung Disease N Depression N Blood Clots N Acne N Breast Problem N Eating Disorder N Anemia N Anesthesia Complications N Headaches/Migraines N Anxiety Disorder Y Ovarian Cancer N Diabetes N Muscle, Joint, or Bone Problems N [...] virus, quadrivalent, preservative 7 completed Not Available [employer] 08/29/2019 02:44:55 Past Encounters Encounter ID Performer Location Encounter Start Date Encounter Closed Date Diagnosis/Indication Diagnosis SNOMED-CT Code Diagnosis ICD10 Code Diagnosis Note [id number] MD Bill Diaz ([facility]) [address] [place] [address] [phone] 09/14/2015 14:39:16 09/15/2015 14:26:08 Gynecologic examination 19007714 Z01.419 Screening for malignant neoplasm of breast 843931938 Z12.39 Screening for osteoporosis 998576970 Z13.820 Depressive disorder 3548 9007 F32.9 [id number] MD Bill Diaz ([facility]) [address] [place] [address] [phone] 10/09/2016 11:05:25 10/10/2016 15:41:36 Gynecologic examination 42401941 Z01.419 Screening mammography 24 760756 Z12.31 Venereal d isease screening 515897320 Z11.3 Exposure t o sexually transmissible disorder 468396700 Z20.2 Atrophic vaginitis 87135 000 N95.2 Administra tion of influenza vaccine 78782476 Z23 Depressive disorder 3548 9007 F32.9 Patient de clines smoking cessation information 9992454679 104 Z53.20 [id number] [facility] [address] [place] [address] [id number] 0 01/09/2018 09:41:00 01/09/2018 10:40:51 Screening mammography 76077330 Z12.31 Fibrocysti c disease of breast 69083369 N60.19 arely's ligament pain [id number] MD Bill Diaz ([facility]) [address] [place] [address] [id number] 06/11/2019 11:59:16 06/11/2019 14:41:40 Screening mammography 87962260 Z12.31 Osteopenia 725777539 M85 .80 Fibrocysti c disease of breast 98515137 N60.19 arely's ligament pain Depressive disorder 3548 9007 F32.9 [id number] MD Bill Diaz ([facility]) [address] [place] [address] [id number] 06/05/2021 16:18:29 06/07/2021 13:58:40 Screening mammography 55257326 Z12.31 Osteopenia 096143170 M85 .80 Fibrocysti c disease of breast 96890599 N60.19 arely's ligament pain Depressive disorder 3548 9007 F32.9 Gynecologi c examination 23031668 Z01.419 Screening for malignant neoplasm of colon 443515179 Z12.11 Health Concerns Section Related Observation LastModified by Organization Detai ls LastModified Time None Recorded Concern Status LastModified by Organization Details LastModified Time None Recorded Advance Directives Directive N: Payers Encounter Date Sequence Insurance Name Policy Number Policy Felipe Covered Member ID Felipe Member ID Guarantor Name 09/14/2015 1 [facility] PRIOR TO 02/09/2021 (MEDICAID REPLACEMENT - HMO) Liset Kunz [id number] Liset Ze 10/09/2016 1 [facility] PRIOR TO 02/09/2021 (MEDICAID REPLACEMENT - HMO) Liset Kunz [id number] Liset Ze 01/09/2018 1 [facility] PRIOR TO 02/09/2021 (MEDICAID REPLACEMENT - HMO) Liset Kunz [id number] Lisetbennett Kunz 06/11/2019 1 [facility] PRIOR TO 02/09/2021 (MEDICAID REPLACEMENT - HMO) Liset Kunz [id number] Liset Kunz 06/05/2021 1 [facility] ON OR AFTER 02/09/21 (MEDICAID REPLACEMENT - HMO) Liset Kunz [id number] Liset Kunz Notes Date Note Type Note [...] to schedule mammogram; Needs to schedule colonoscopy TADEO Alejandre 09/14/2015 17:34:06 10/09/2016 text/html 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 Last pap with HPV 2017 negative. 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 Post-MenopausalReporte d bypatient.Menopausal Symptoms:no menopausal symptoms; normal [...] colonoscopy; needs to schedule bone density Marlee Savage TADEO frankel 06/05/2021 17:37:20 OBGyn Episode Ob Episode Information Episode Created Date Number of Fetuses Patient Bloodtype Patient rh Status Prepregnancy Weight lbs Domestic Partner Domestic Partner Phone Father Name Packaging Sales Status 09/14/19 16 1 CLOSED Fetus Data First Name Last Name Admitted to NICU Weight (g) Sex Living Outcome Pediatric Complications Fetus ID Race Codes Race Delivery Type 3543.68 75 M Prematur e [id number] Pedro Calculation Initial Pedro Date Initial Exam [...] Domestic Partner Domestic Partner Phone Father Name Packaging Sales Status 09/14/19 16 1 CLOSED Fetus Data First Name Last Name Admitted to NICU Weight (g) Sex Living Outcome Pediatric Complications Fetus ID Race Codes Race Delivery Type 3146.79 43 F Full Term [id number] Pedro Calculation Initial Pedro Date Initial Exam [...]
--- OUTSIDE RECORDS SUMMARY | 2025-01-09 10:53 | XMS_ITS | Referral Summary ---
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 Gender Identity Not on file Sexual Orientation Not on file Last Filed Vital Signs Vital Sign Reading Time Taken Comments Blood Pressure 111/59 08/30/2014 10:06 AM TRAFFIC INSPECTOR Pulse 66 09/08/2015 10:15 AM TRAFFIC INSPECTOR Temperature 36.4 C (97.6 F) 08/30/2014 10:06 AM TRAFFIC INSPECTOR Respiratory Rate - - Oxygen Saturation 95% 08/30/2014 10:06 AM TRAFFIC INSPECTOR Inhaled Oxygen Concentration - - Weight 61.7 kg (136 lb) 08/30/2014 10:06 AM TRAFFIC INSPECTOR Height 152.4 cm (5') 08/30/2014 10:06 AM TRAFFIC INSPECTOR Body Mass Index 26.56 08/30/2014 10:06 AM TRAFFIC INSPECTOR Plan of Treatment Not on file Procedures [...] Most Recently Relevant to Health Maintenance Insurance [facility] Care Teams Automation Application Engineer Relationship Specialty Start Date End Date Dc Alamo MD PCP - General 12/11/16
--- OUTSIDE RECORDS SUMMARY | 2025-01-09 10:53 | XMS_ITS | Data Portability ---
Author Organization ID - [facility] OFFICE Address [address] [place] [id number] Assessment Encounter Date Assessment Date Assessment LastModified [...] recorded. Surgeries None recorded. Imaging electrocard iogram 2021 022 SHELLEY Not available 16:31:50 electrocard iogram 2020 021 SHELLEY Not available 17:54:09 Medication Orders Crestor 5 mg tablet 2021 [id number], [address], [place], [place], [id number], 17:06:07 Patient TargetsNo targets recorded. Patient Instructions Encounter Date Encounter Id Patient Instructions Last Modified By Organization Details Last Modified Time 02/27/2021 [id number] Exercise advised Low cholesterol diet advised Low sodium diet advised [email or web address] Not available 02/27/2021 14:51:26 Patient was seen and evaluated by Clair Bermudez [facility]. Plan of care was discussed with collaborating physician and note cosigned by Dr. Arturo Ribeiro. Not available 02/27/2021 14:51:44 03/27/2022 [id number] Weight loss, pounds Advised against smoking Exercise advised Low cholesterol diet advised Low sodium diet advised. [email or web address] Not available 03/27/2022 17:02:29 03/26/2023 [id number] Exercise advised Low cholesterol diet advised Low sodium diet advised. [email or web address] Not available 03/26/2023 13:09:05 Reason for Referral None Reported. Results Created Date Observation Date Name Description Value Unit Range Abnormal Flag Note LastModifiedBy Organization Detail LastModifiedTime 02/25/20 21 02/24/2021 elect rocar diogr am No observ ation record ed. tim Osei MD [address], [place], [address], 04/16/2021 17:54:09 08/19/19 22 08/19/2021 elect rocar diogr am No observ ation record ed. tim Osei MD [address], [place], [address], 10/06/2021 16:31:50 10/06/19 22 10/03/2021 elect rocar diogr am No observ ation record ed. [email or web address] Not Available 2021 09:28:18 10/20/19 22 10/16/2021 , [facility] ardio gram No observ ation record ed. [...] Recorded Time Chronic obstructiv e pulmonary disease 40127751 Active 2015 Asthma oxygen at night Grace frankel, [facility] 2 14:27:59 Gastroesop hageal reflux disease 531036262 Active [facility] 6 11:43:29 Carpal tunnel syndrome 38336384 Active 2015 [facility] 6 11:43:39 Generalize d osteoarthr itis 594766616 Active 2015 [facility] 6 11:43:56 Anxiety 22981480 Active 2015 [facility] [facility] 6 11:44:03 Esophageal anastomoti c stricture 744233939 Active 2015 s/p dilatation [facility] 6 11:45:00 Irritable bowel syndrome 39822226 Active 2015 [facility] 6 11:45:13 History of depression 552741183 Active 2015 [facility], [facility] 6 11:45:23 Benign essential hypertensi on 7411925 Active 2016 Grace frankel, [facility] 2 14:27:53 Dyslipidem ia 045046645 Active 201616: LDL 83 Grace frankel [facility] 2 14:28:04 Smokes tobacco daily 692891961 Active 2016 Grace frankel, [place] - [facility] 7 14:15:04 Peripheral arterial occlusive disease 410941549 Active 2016 Grace King [facility] 7 14:25:47 Problem Notes None recorded. Procedures Surgical History Date Name Laterality Status Provider Name and Address Organization Details Recorded Time Caesarean Section completed Grace King [facility] 02/01/2016 16:47:28 Imaging Results None recorded. Procedure Notes None [...] Updated DateTime 3 154.94 cm 19.3 kg/m2 01498.4 2 g 61 /min 18 /min 94 % 94 % 118 mm[Hg] 68 mm[Hg] Daryl Vinson [facility] 3 12:08:44 Date Recorded Body height Body mass index (BMI) Body weight Heart rate Oxygen saturation Oxygen saturation in Arterial blood by Pulse oximetry Systolic blood pressure Diastolic blood pressure Provider Name and Address Organization Details Last Updated DateTime 2 154.94 cm 21 kg/m2 77526.4 7 g 78 /min 88 % 88 % 115 mm[Hg] 70 mm[Hg] ROMEO ARGUELLES [facility] 2 17:42:00 Date Recorded Body height Body mass index (BMI) Body weight Respiratory rate Oxygen saturation Oxygen saturation in Arterial blood by Pulse oximetry Heart rate Systolic blood pressure Diastolic blood pressure Provider Name and Address Organization Details Last Updated DateTime 1 154.94 cm 21.6 kg/m2 49555.3 3 g 18 /min 98 % 98 % 67 /min 114 mm[Hg] 60 mm[Hg] SHAHZAD CORNELIUS [facility] 1 11:37:54 Date Recorded Body height Body mass index (BMI) Body weight Oxygen saturation Oxygen saturation in Arterial blood by Pulse oximetry Heart rate Systolic blood pressure Diastolic blood pressure Provider Name and Address Organization Details Last Updated DateTime 3 154.94 cm 18.7 kg/m2 73825.9 3 g 94 % 94 % 67 /min 100 mm[Hg] 64 mm[Hg] LEIA GENAO [facility] 3 12:55:15 Date Recorded Body height Body mass index (BMI) Body weight Oxygen saturation Oxygen saturation in Arterial blood by Pulse oximetry Heart rate Systolic blood pressure Diastolic blood pressure Provider Name and Address Organization Details Last Updated DateTime 2 154.94 cm 19.8 kg/m2 26639.1 2 g 91 % 91 % 80 /min 92 mm[Hg] 58 mm[Hg] Galo Garcia i, MD [address] [place], [address], [facility] 2 16:30:02 Social History Question Answer Notes LastModified by [employer] Details LastModified Time Tobacco Smoking Status Current Every Day Smoker Grace King [facility], [facility] 02/01/2016 16:49:01 What Is Your Level Of Caffeine Consumption? Occasional [email or web address] Information not available 05/04/2019 How Much Tobacco Do You Chew? None Information not available 05/04/2019 What Type Of Diet Are You Following? REGULAR Information not available 05/04/2019 Which Illicit Or Recreational Drugs Have You Used? None [email or web address] Information not available 05/04/2019 Live Alone Or With Others? With Others [email or web address] Information not available 05/04/2019 Marital Status Unknown [email or web address] Informatio n not available 05/04/2019 What Was The Date Of Your Most Recent Tobacco Screening? 04/22/2018 Information not available 03/05/2019 General Stress Level Medium [email or web address] Information not available 05/04/2019 Sex: Unknown Functional Status Question Answer Note LastModified by [email or web address] [facility] Details LastModified Time What is your level of alcohol consumption? None [email or web address] Information not available 05/04/2019 Do you or have you ever used smokeless tobacco? Never used smokeless tobacco [email or web address] Information not available 05/04/2019 Do you or have you ever used e-cigarettes or vape? Never used electronic cigarettes [email or web address] Information not available 05/04/2019 What is your exercise level? Occasional [email or web address] Information not available 05/04/2019 Mental Status None [...] Code Diagnosis Note 2528 Galo Osei MD [place] OFFICE [address] [place] [address] 02/03/2016 10:39:44 02/03/2016 11:36:32 Atypical chest pain 604005314 R07.89 Resolved Dyslipidemia 320696664 E 78.5 Needs to keep LDL less than 70, and HDL more than 40 7531 Galo Osei MD [place] OFFICE [facility] [place] [address] 07/31/2016 11:36:02 07/31/2016 15:33:12 Benign essential hypertension 0035245 I10 Dyslipidemia 782913388 E 78.5 Needs to keep LDL less than 70, and HDL more than 40 Atypical chest pain 1025 59528 R07.89 Treadmill Myoview Stress test, has high [place] Risk score. Has Known CAD, or CAD risk equivalent . To look for any ischemia. Smokes tobacco daily 449 980492 Z72.0 Advised to quit, patient is trying 75900 Galo Osei MD [place] OFFICE [facility] [place] [address] 01/22/2017 10:41:37 01/22/2017 15:12:29 Benign essential hypertension 1175871 I10 Stable Atypical chest pain 1025 94722 R07.89 Treadmill Myoview Stress test was negative Dyslipidemia 714913484 E 78.5 Needs to keep LDL less than 70, and HDL more than 40 Smokes tobacco daily 449 214716 Z72.0 Advised to quit, patient is trying Palpitations 80305742 R0 0.2 Will try on Low dose Cardizem Peripheral arterial occlusive disease 250021170 I73.9 Duplex arterial doppler 48639 Galo Osei MD [place] OFF[facility] [address] [place] [address] 05/07/2017 10:32:37 05/07/2017 14:31:33 Benign essential hypertension 1970174 I10 Stable Atypical chest pain 1025 53013 R07.89 Treadmill Myoview Stress test ( )was negative Dyslipidemia 128214504 E 78.5 Needs to keep LDL less than 70, and HDL more than 40 03-15-2016 LDL:83 Smokes tobacco daily 449 287437 Z72.0 Advised to quit, patient is trying 1/2 PPD Palpitations 63187260 R0 0.2 on Low dose Cardizem Peripheral arterial occlusive disease 295825934 I73.9 Duplex arterial doppler with mild PVD 52804 Galo Osei MD [place] OFF[facility] [address] [place] [address] 11/05/2017 11:25:04 11/05/2017 16:41:05 Benign essential hypertension 3867052 I10 Stable Atypical chest pain 1025 50033 R07.89 Treadmill Myoview Stress test, has high [place] Risk score. Has Known CAD, or CAD risk equivalent . To look for any ischemia. Dyslipidemia 503028441 E 78.5 Needs to keep LDL less than 70, and HDL more than 40 03-15-2016 LDL:83 Will get repeat lipids prior to next visit. Smokes tobacco daily 449 907775 Z72.0 Advised to quit, patient is trying 1/2 PPD Peripheral arterial occlusive disease 849748339 I73.9 Duplex arterial doppler with mild PVD 58710 MD Luca Sant[facility] Office [address] [place] [address] 12/02/2017 12:22:20 12/02/2017 15:04:18 Benign essential hypertension 5836406 I10 Well controlled Atypical chest pain 1025 06553 R07.89 Had positive stress test for ischemia 11/13/17.S he reports having a 2 LHC in 2008, and 2010. No stents were placed.Tam hassan arrange for cardiac CTA if insurance will approve. Otherwise will plan for LHC.On ASA Dyslipidemia 677042912 E 78.5 Needs to keep LDL less than 70, and HDL more than 40 LDL 105 11/11/17 Will start Atorvastat in 10. Smokes tobacco daily 449 402174 Z72.0 Advised to quit, patient is trying 1/2 PPD Peripheral arterial occlusive disease 876757981 I73.9 Duplex arterial doppler with mild PVD.Denies leg pain with walkingCon tinue maximal medical treatment and risk factor modificati onOn ASA and Statin 09315 Galo Osei MD [place] OFFICE [address] [place] [address] 04/22/2018 12:14:27 04/22/2018 14:02:54 Dyslipidemia 143556178 E78.5 Needs to keep LDL less than 70, and HDL more than 40 LDL 105 11/11/17 On Atorvastat in 10mg Chest pain 68900843 R07. 9 Had chest pain went to [facility], negative troponins, CXR and EKG showed no acute ST-T wave changes. Had positive stress test on 11/13/17. Had Cardiac CTA on 03/31/18 showing mild CAD with < 25 stenosis to LAD and LCX. Normal LV function.P RN NTG Benign ess ential hypertension 9016350 I10 Well controlled Peripheral arterial occlusive disease 477940842 I73.9 Duplex arterial doppler with mild PVD. Denies leg pain with walking Continue maximal medical treatment and risk factor modificati on On ASA and Statin Smokes tobacco daily 449 135579 Z72.0 Advised to quit, patient is trying 1/2 PPD 12336 Galo Osei MD [place] [facility] [place] [address] 05/04/2019 15:33:28 05/04/2019 15:55:59 Chest pain 41137603 R07.9 Had chest pain went to [facility], negative troponins, CXR and EKG showed [...] agrees to proceed. Benign ess ential hypertension 5276889 I10 Well controlled Dyslipidemia 450970037 E 78.5 Needs to keep LDL less than 70, and HDL more than 40 LDL 105 11/11/17 Peripheral arterial occlusive disease 378641402 I73.9 Duplex arterial doppler with mild PVD. Denies leg pain with walking Continue maximal medical treatment and risk factor modificati on On ASA and Statin Smokes tobacco daily 449 413051 Z72.0 Advised to quit, patient is trying 1/2 PPD 36285 MD Abhijit Santoro Office [address] [place] [address] 05/25/2019 14:36:17 05/25/2019 15:59:40 Chest pain 02630993 R07.9 Had chest pain went to [facility], negative troponins, CXR and EKG showed no acute ST-T wave changes. Cath with no significan t Coronary Artery Disease Benign ess ential hypertension 7281842 I10 Well controlled Dyslipidemia 395220631 E 78.5 Needs to keep LDL less than 70, and HDL more than 40 LDL 105 11/11/17 Peripheral arterial occlusive disease 887721827 I73.9 Duplex arterial doppler with mild PVD. Denies leg pain with walking Continue maximal medical treatment and risk factor modificati on On ASA and Statin Smokes tobacco daily 449 407104 Z72.0 Advised to quit, patient is trying 1/2 PPD 41903 MD Abhijit [facility] Office [address] [place] [address] 10/19/2019 13:49:13 10/20/2019 13:24:49 Chest pain 54272687 R07.9 Had chest pain went to [facility], negative troponins, CXR and EKG showed no acute ST-T wave changes. Cath with no significan t Coronary Artery DiseasePRN NTG Benign ess ential hypertension 8950555 I10 Well controlled Dyslipidemia 093358480 E 78.5 Needs to keep LDL less than 70, and HDL more than 40 LDL 105 11/11/17 Peripheral arterial occlusive disease 099353911 I73.9 Duplex arterial doppler with mild PVD. Denies leg pain with walking Continue maximal medical treatment and risk factor modificati on On ASA and Statin Smokes tobacco daily 449 467795 Z72.0 Advised to quit, patient is trying 1/2 PPD 09399 MD Luca [facility] Office [address] [place] [address] 02/27/2021 11:24:12 02/27/2021 12:39:40 Chest pain 93487171 R07.9 ResolvedLH C 05/18/2019 : No significan t CAD Benign ess ential hypertension 6737141 I10 Well controlled without antihypert ensive therapy Dyslipidemia 338403756 E 78.5 Needs to keep LDL less than 100, and HDL more than 40. 019 LDL 50She self-stopp ed atorvastat in.Will get fasting lipids for follow-up Peripheral arterial occlusive disease 389252860 I73.9 Now asymptomat icArterial duplex 01/29/2017 : No significan t lower extremity peripheral arterial disease detected. Smokes tobacco daily 449 575613 Z72.0 Cessation highly advised Preoperati ve cardiovascular examination 865202516 Z01.810 There is no cardiac contraindi cation for the procedure. The planned procedure would be within acceptable risk. 33098 Galo Osei MD [place] [facility]ICE [address] [place] [address] 10/03/2021 17:31:17 10/03/2021 18:02:18 Chest pain 69983034 R07.9 Obtain echo to evaluate for structural /functiona l disease. Benign ess ential hypertension 5627334 I10 Well controlled without antihypert ensive therapyObt ain echo to evaluate for structural /functiona l disease. Dyslipidemia 127944673 E 78.5 Needs to keep LDL less than 100, and HDL more than 40. 019 LDL 50She self-stopp ed atorvastat in.Will get fasting lipids for follow-up Peripheral arterial occlusive disease 983757309 I73.9 Now asymptomat icArterial duplex 01/29/2017 : No significan t lower extremity peripheral arterial disease detected. Smokes tobacco daily 449 128581 Z72.0 Cessation highly advised Preoperati ve cardiovascular examination 663833744 Z01.810 There is no cardiac contraindi cation for the procedure. The planned procedure would be within acceptable risk. 30234 Galo Osei MD [place] [facility] [address] [place] [address] 03/27/2022 16:02:16 03/27/2022 17:10:41 Chest pain 35509528 R07.9 (10/16/21) ECHOStudy quality: Technicall y difficult. [...] triscupid regurgitat ion. Benign ess ential hypertension 2656759 I10 Well controlled without antihypert ensive therapy [...] There is trace triscupid regurgitat ion. Dyslipidemia 959346795 E 78.5 Needs to keep LDL less than 100, and HDL more than 40.2021 LDL 101She self-stopp ed atorvastat in.start crestor 5 mg daily Will get fasting lipids for follow-up Peripheral arterial occlusive disease 383793302 I73.9 Now asymptomat icArterial duplex 01/29/2017 : No significan t lower extremity peripheral arterial disease detected. Smokes tobacco daily 449 366697 Z72.0 Cessation highly advised Preoperati ve cardiovascular examination 395706784 Z01.810 There is no cardiac contraindi cation for the procedure. The planned procedure would be within acceptable risk. 47110 Galo Osei MD [place] [facility] [address] [place] [address] 09/28/2022 11:52:14 09/28/2022 12:27:13 Chest pain 04134173 R07.9 (10/16/21) ECHOStudy quality: Technicall y difficult. [...] triscupid regurgitat ion. Benign ess ential hypertension 9029267 I10 Well controlled without antihypert ensive therapy [...] There is trace triscupid regurgitat ion. Dyslipidemia 559019752 E 78.5 Needs to keep LDL less than 100, and HDL more than 40.2021 LDL 101She self-stopp ed atorvastat in.start crestor 5 mg daily Will get fasting lipids for follow-up Peripheral arterial occlusive disease 394900820 I73.9 Now asymptomat icArterial duplex 01/29/2017 : No significan t lower extremity peripheral arterial disease detected. Smokes tobacco daily 449 252597 Z72.0 Cessation highly advised Preoperati ve cardiovascular examination 203842315 Z01.810 There is no cardiac contraindi cation for the procedure. The planned procedure would be within acceptable risk. 15373 Galo Osei MD [place] OFFICE [address] [place] [address] 03/26/2023 12:34:49 03/26/2023 13:09:56 Chest pain 00647765 R07.9 (10/16/21) ECHO Study quality: Technicall y [...] triscupid regurgitat ion. Benign ess ential hypertension 2123773 I10 Well controlled without antihypert ensive therapy [...] There is trace triscupid regurgitat ion. Dyslipidemia 957235642 E 78.5 Needs to keep LDL less than 100, and HDL more than 40.2021 LDL 101She self-stopp ed atorvastat in and crestor Will get fasting lipids for follow-up Peripheral arterial occlusive disease 269668074 I73.9 Now asymptomat icArterial duplex 01/29/2017 : No significan t lower extremity peripheral arterial disease detected. Smokes tobacco daily 449 487835 Z72.0 Cessation highly advised Preoperati ve cardiovascular examination 875394902 Z01.810 There is no cardiac contraindi cation for the procedure. The planned procedure would be within acceptable risk. Health Concerns Section Related Observation LastModified by Organization Detai ls LastModified Time None Recorded Concern Status LastModified by Organization Details LastModified Time None Recorded Advance Directives Directive None Recorded Payers Insurance Date Sequence Insurance Name Policy Number Policy Felipe Covered Member ID Felipe Member ID Guarantor Name 03/26/2023 1 [facility] ON OR AFTER 02/09/21 (MEDICAID REPLACEMENT - HMO) Liset Kunz [id number] 03/26/2023 1 [facility] PRIOR TO 02/09/2021 (MEDICAID REPLACEMENT - HMO) Liset Kunz [id number] Notes Date Note Type Note Provider Name [...] significant lower extremity peripheral arterial disease detected. Clair Bermudez [facility], [place] - [facility] 02/27/2021 14:51:51 10/03/2021 text/html 08/22/21CC : Car diac follow up, chest [id number]-wpn white woman with h/o dyslipidemia, mild PVD, [...] RBC 4.22 HGB 14.1 HCT 42.5 PLT 0629004/30/19: NA 138 ,K 3.7, CL 105 ,CO2 [...] peripheral arterial disease detected. Galo Osei MD [address], [place], [address], [place] - [facility] 10/03/2021 17:54:18 03/27/2022 text/html 03/27/22CC : Car diac follow up hypertension and chest [id number]-tnc white woman with h/o dyslipidemia, CAD mild [...] on Saturday03/03/2021 for a bunyon removal. *Had [facility] 05/14/2019 No significant CAD. Mid and distal [...] RBC 4.22 HGB 14.1 HCT 42.5 PLT 94749: NA 138 ,K 3.7, CL 105 ,CO2 [...] disease detected. Galo Osei MD [address] [place], [address], [place] [facility] 04/22/2022 19:12:33 09/28/2022 text/html 09/28/22CC : Steven hand follow [id number] white woman with h/o dyslipidemia, CAD mild [...] RBC 4.22 HGB 14.1 HCT 42.5 PLT 67128: NA 138 ,K 3.7, CL 105 ,CO2 [...] lower extremity peripheral arterial disease detected. Soledad Mcclain [facility], [place] - [facility] 02/12/2024 11:53:40 03/26/2023 text/html 03/26/23CC : Car diac follow up chest pain and dyspnea on [id number]-pcte-pop white woman with h/o dyslipidemia, CAD mild [...] RBC 4.22 HGB 14.1 HCT 42.5 PLT 32512: NA 138 ,K 3.7, CL 105 ,CO2 [...] peripheral arterial disease detected. Galo Osei MD [address], [place], [address], [facility] - [facility] 03/26/2023 13:09:09 OBGyn Episode No OBEpisode recorded.
--- OUTSIDE RECORDS SUMMARY | 2025-01-09 10:53 | XMS_ITS | Clinical Summary ---
Author Organization [facility] Address [address] [address] Care Team Providers Care Steam Trap Man Name Role Phone Dc Alamo MD Primary Care Provider [phone] Allergies Active Allergy Reactions Criticality Noted Date Comments Albuterol Medications No known medications Active Problems Problem Noted Date Diagnosed Date Hematochezia 03/18/2013 Difficulty in swallowing 12/18/2011 Smokes tobacco daily 11/21/2011 Current smoker 01/24/2011 Overview (11/21/2017): Description: 01/24/2011 Surgical History Surgery Date Site/Laterality Comments HAND SURGERY Hand Surgery - (Added by TW Conv) OR DELIVERY ONLY Section - 1977 and 1979. 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 Gender Identity Not on file Sexual Orientation Not on file Obstetrics History Last Filed Vital Signs Vital Sign Reading Time Taken Comments Blood Pressure 111/59 08/30/2014 10:06 AM FIBER ANALYST Pulse 66 09/08/2015 10:15 AM FIBER ANALYST Temperature 36.4 C (97.6 F) 08/30/2014 10:06 AM FIBER ANALYST Respiratory Rate - - Oxygen Saturation 95% 08/30/2014 10:06 AM FIBER ANALYST Inhaled Oxygen Concentration - - Weight 61.7 kg (136 lb) 08/30/2014 10:06 AM FIBER ANALYST Height 152.4 cm (5') 08/30/2014 10:06 AM FIBER ANALYST Body Mass Index 26.56 08/30/2014 10:06 AM FIBER ANALYST Plan of Treatment Health Maintenance Due Date Last Done Comments Breast Cancer Screening-Mammogram 1958 Depression Screening 1958 Fall Risk Assessment 1958 Hepatitis C Screening 1960 Osteoporosis Screening-Bone Density Scan 1958 DTaP/Tdap/Td Vaccine (1 - Tdap) 1969 Hepatitis B Screening 1976 Pneumococcal vaccine 65+ (1 of 2 - PCV) 1977 Zoster Vaccine (1 of 2) 2008 Colon Cancer Screening-Colonoscopy 05/20/20232012 Well Visit 65+ 2023 Covid-19 Vaccine ( season) 2024 09/11/2021, 03/11/2021, 02/18/2021 Influenza Vaccine (Season Ended) 2025 06/15/20 15 Procedures Procedure Name Priority Date/Time Associated Diagnosis Comments COLONOSCOPY REPORT 05/20/2013 from Last 3 Months or Most Recently Relevant to Health Maintenance Results * COLONOSCOPY REPORT (05/20/2013) Anatomical Region Laterality Modality Other Narrative 05/20/2013 Ordered by an unspecified provider. us Historical Provider GI PROCEDURE ORDERABLES F inal Result from Last 3 Months or Most Recently Relevant to Health Maintenance Insurance [facility] Care Teams Steam Trap Man Relationship Specialty Start Date End Date Dc Alamo MD PCP - General 12/11/16
--- OUTSIDE RECORDS SUMMARY | 2025-01-09 10:53 | XMS_ITS | Clinical Summary ---
Author Organization [facility] Address [address] [place] [address] Phone Care Team Providers Care Wound Care Specialist Name Role Phone Zaki Andrade MD Primary Care Provider [phone] Social History Tobacco Use Types Packs/Day Years Used Date Smoking Tobacco: Never Assessed Comments Unknown Sex and Gender Information Value Date Recorded Sex Assigned at Not on file Legal Sex Female 2:50 PM CDT Gender Identity Not on file Sexual Orientation Not on file Plan of Treatment Not on file Insurance MEDICAID [facility] Care Teams Wound Care Specialist Relationship Specialty Start Date End Date Zaki Andrade MD [address] [address] PCP - General Family Medicine 05/20/19
--- OUTSIDE RECORDS SUMMARY | 2025-01-09 10:53 | XMS_ITS | Encounter Summary ---
Author Organization [facility] Address [address] [place] [address] Phone Care Team Providers Care Picking Supervisor Name Role Phone Dc Alamo MD Primary Care Provider [phone] Encounter Details Date Type Department Care Team (Late st Contact Info) Description 06/30/2021 Orders Only [facility] Scanning, Provider Social History Tobacco Use Types Packs/Day Years Used Date Smoking Tobacco: Every Day Comments Unknown Sex and Gender Information Value Date Recorded Sex Assigned at Not on file 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
[2025-01-09 11:27] LABS: Basophils Percent Auto 0.6 % (0.2-1.2); Eosinophils Absolute Auto 0.1 K/mm3 (0-0.3); Eosinophils Percent Auto 0.9 % (0-4.4); Hematocrit 41.5 % (37.0-47.0); Hemoglobin 13.2 g/dL (12.0-15.0); Immature Granulocyte Absolute 0.02 K/mm3 (0.00-0.031); Immature Granulocyte Percent A 0.4 % (0-0.5); Lymphocytes Absolute Auto 1.76 K/mm3 (0.9-3.2); Lymphocytes Percent Auto 33.1 % (18.3-44.2); Mean Corpuscular HGB Conc 31.8 g/dl (32-36); Mean Corpuscular Hemoglobin 31.7 pg (26-34); Mean Corpuscular Volume 99.5 fl (80-100); Mean Platelet Volume 9.5 fl (7.4-10.4); Monocytes Absolute Auto 0.5 K/mm3 (0.1-0.6); Platelet Count Result 146 k/mm3 (150-375); Red Blood Count 4.17 M/mm3 (4.2-5.4); Red Cell Distribution Width 11.9 % (11.5-14.5); White Blood Count 5.3 K/mm3 (4.5-10.0)
[2025-01-09 11:45] LABS: Alanine Aminotransferase 14 U/L (6-35); Albumin Level 4.5 g/dL (3.5-5.1); Alkaline Phosphatase 54 U/L (38-126); Anion Gap 6 mmol/L (4-12); Aspartate Amino Transferase 23 U/L (14-36); Bilirubin,Total 0.6 mg/dL (0.2-1.3); Blood Urea Nitrogen 13 mg/dL (7-17); Calcium 9.7 mg/dL (8.4-10.2); Carbon Dioxide 33 mmol/L (22-30); Chloride 102 mmol/L (98-107); Cholesterol 179 mg/dL (0-200); Estimated Glomerular Filt Rate > 60; Glucose 106 mg/dL (65-110); HDL Direct 94 mg/dL; Potassium 4.2 mmol/L (3.4-5.0); Sodium 141 mmol/L (137-145); Triglycerides 62 mg/dL (<150)
[2025-01-09 11:51] LABS: LDL Cholesterol Direct 63 mg/dL
[2025-01-09 12:12] LABS: Thyroid Stimulating Hormone 0.355 uIU/mL (0.465-4.680)
[2025-01-09 12:15] LABS: Free T4 Free Thyroxine 1.48 ng/dL (0.78-2.19); Total Triiodothyronine (T3) 1.02 NG/ML (0.82-1.58)
[2025-01-09 12:47] LABS: Hepatitis C Virus Antibody Negative (Negative)
== END 2025-01-09 10:49 | disposition home or self-care (01) ==
PROVIDERS: PCP Family Medicine; Referring Provider Registered Nurse; Visit Provider Internal Medicine Critical Care Medicine
DX: J44.9 Chronic obstructive pulmonary disease, unspecified (principal); E03.9 Hypothyroidism, unspecified; J43.9 Emphysema, unspecified; E78.5 Hyperlipidemia, unspecified; Z11.59 Encounter for screening for other viral diseases; I10 Essential (primary) hypertension
CPT/HCPCS: 36415; 80053; 80061; 84439; 84443; 84480; 85025; 86803; 87070; 87077; 87186; 87205

== ENCOUNTER 2025-06-29 13:30 | Outpatient (CLI) | payer MEDICARE, SELFPAY ==
[2025-06-29 14:26] LABS: Hematocrit 40.1 % (37.0-47.0); Hemoglobin 12.7 g/dL (12.0-15.0); Immature Platelet Fraction Pct 3.4 % (0.9-11.2); Mean Corpuscular HGB Conc 31.7 g/dl (32-36); Mean Corpuscular Hemoglobin 32.1 pg (26-34); Mean Corpuscular Volume 101.3 fl (80-100); Platelet Count Result 130 k/mm3 (150-375); Red Blood Count 3.96 M/mm3 (4.2-5.4); White Blood Count 5.1 K/mm3 (4.5-10.0)
[2025-06-29 14:58] LABS: Alanine Aminotransferase 13 U/L (6-35); Albumin Level 4.5 g/dL (3.5-5.1); Alkaline Phosphatase 54 U/L (38-126); Anion Gap 7 mmol/L (4-12); Aspartate Amino Transferase 19 U/L (14-36); Bilirubin,Total 0.5 mg/dL (0.2-1.3); Blood Urea Nitrogen 17 mg/dL (7-17); Calcium 9.1 mg/dL (8.4-10.2); Carbon Dioxide 29 mmol/L (22-30); Chloride 101 mmol/L (98-107); Cholesterol 199 mg/dL (0-200); Estimated Glomerular Filt Rate > 60; Glucose 88 mg/dL (65-110); HDL Direct 87 mg/dL; Potassium 4.0 mmol/L (3.4-5.0); Sodium 137 mmol/L (137-145); Total Protein 7.3 g/dL (6.3-8.2); Triglycerides 75 mg/dL (<150)
[2025-06-29 15:07] LABS: Free T4 Free Thyroxine 1.23 ng/dL (0.78-2.19)
[2025-06-29 15:27] LABS: Thyroid Stimulating Hormone 0.572 uIU/mL (0.465-4.680)
[2025-06-29 16:02] LABS: Vitamin B12 302.0 pg/mL (239-931)
[2025-06-29 17:29] LABS: Hemoglobin A1C 5.1 % (<5.7)
== END 2025-06-29 13:31 | disposition home or self-care (01) ==
PROVIDERS: PCP Family Medicine; Visit Provider Nurse Practitioner Family
DX: I95.9 Hypotension, unspecified (principal); E78.5 Hyperlipidemia, unspecified; E55.9 Vitamin D deficiency, unspecified; E53.9 Vitamin B deficiency, unspecified; E11.9 Type 2 diabetes mellitus without complications
CPT/HCPCS: 36415; 80053; 80061; 82306; 82607; 82746; 83036; 84439; 84443; 85027; 85055